=== PATIENT | male | born 1960 | race Caucasian/White ===

== ENCOUNTER 2025-05-04 08:24 | Inpatient (IN) | payer MEDICARE, MEDICAID, SELFPAY ==
[2025-05-04] VITALS (15 sets, daily range): BP systolic 127–162; BP diastolic 72–95; PULSE 102–123; RESP 13–100; TEMP 36.7–37.1; O2SAT 95–100; BMI 16.7
--- NOTE | 2025-05-04 08:31 | PC.NURSE ---
Pt. here from [facility] to room [facility], facility states pt. Hemoglobin was 6.7 and sent pt. for a blood transfusion, pt. states he has been coughing since he had his chest tubes last week. Pt. states he fell a couple days ago and hit his head, pt. states he denies loss of LOC he states he has a hard head. Pt. has a swollen left hand and left arm from the elbow down, pt. states he doesn't know why his arm and hand are swollen. Pt. states he doesn't walk because his legs are weak. Pt. states he just started PT at the rehab. No s/s of distress at this time.
--- NOTE | 2025-05-04 08:41 | XR_ITS ---
Examination: Duplex scan of the upper extremity, unilateral left Date and time of exam: May 04, 2025, 12:14 p.m. INDICATIONS: Left arm swelling and pain 2 days, patient is anticoagulated Technique: Duplex scan of the extremity veins using B-mode/grayscale imaging and Doppler spectral analysis and color flow Attention is directed to internal echogenicity, compression and augmentation involving these veins, color flow assessment, spectral analysis Findings: Major deep venous structures in the extremity demonstrate normal course and caliber. There is no evidence of deep vein thrombosis. Normal color flow and spectral analysis Impression: Negative for DVT.. Multiple lymph nodes adjacent to the clavicle, left axilla consider CT soft tissue neck post intravenous contrast follow-up, left axillary sonography follow-up
--- NOTE | 2025-05-04 08:45 | PC.NURSE ---
Dr. Hackett bedside and did a rectal exam on pt., pt. tolerated well.
--- NOTE | 2025-05-04 08:50 | EKG_ITS ---
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
[2025-05-04 08:51] LABS: Lactate (Lactic Acid) 1.4 mMol/L (0.4-2.0)
[2025-05-04 09:03] LABS: Basophils # (Auto) 0.0 Thou/mm3 (0.0-0.2); Basophils % (Auto) 0 % (0-2.5); Eosinophils # (Auto) 0.0 Thou/mm3 (0.0-0.5); Eosinophils % (Auto) 0 % (0-10); Hematocrit 20.9 % (41.0-53.0); Immature Granulocytes Auto 0.09 Thou/mm3 (0.00-0.00); Lymphocytes # (Auto) 0.7 Thou/mm3 (1.0-4.8); Lymphocytes % (Auto) 8 % (10-50); Mean Corpuscular HGB Conc 32.1 g/dl (31.0-37.0); Mean Corpuscular Hemoglobin 26.2 pg (25.0-35.0); Mean Corpuscular Volume 82 fL (80-100); Monocytes # (Auto) 0.6 Thou/mm3 (0.0-0.8); Monocytes % (Auto) 7 % (0-12); Neutrophils # (Auto) 7.3 Thou/mm3 (1.8-7.7); Neutrophils % (Auto) 84 % (37-80); Nucleated Red Blood Cell # 0.00 Thou/mm3 (0.00-0.00); Nucleated Red Blood Cell % 0 /100 WBC (0); Platelet Count 537 Thou/mm3 (140-440); RDW Standard Deviation 49.4 fL (35.1-43.9); Red Blood Count 2.56 Miln/mm3 (4.50-5.90); White Blood Count 8.7 Thou/mm3 (3.8-10.6)
[2025-05-04 09:15] LABS: Hemoglobin 6.7 g/dL (13.5-16.0)
[2025-05-04 09:23] LABS: Alanine Aminotransferase < 7 U/L (10-49); Albumin, Serum 2.7 gm/dL (3.4-4.8); Albumin/Globulin Ratio 1.3 (1.2-2.2); Alkaline Phosphatase 170 U/L (46-116); Anion Gap 10 (7-16); Aspartate Amino Transferase 17 U/L (0-34); BUN/Creatinine Ratio 12 Ratio (12-20); Bilirubin,Total 0.3 mg/dL (0.3-1.2); Blood Urea Nitrogen 11 mg/dL (9-23); Calcium 7.9 mg/dL (8.3-10.6); Calcium (Corrected) 8.9 mg/dL (8.5-10.1); Carbon Dioxide 22.6 mMol/L (20.0-31.0); Chloride 96 mMol/L (98-107); Creatinine (Component) 0.9 mg/dL (0.6-1.3); Estimated Creatinine Clearance 61.3 mL/min (>60); Globulin 2.1 gm/dL (2.3-3.5); Glucose 256 mg/dL (74-106); Osmolality,Calculated 267 (275-295); Potassium 4.2 mMol/L (3.4-5.1); Sodium 129 mMol/L (136-145); Total Protein 4.8 gm/dL (5.7-8.2); eGFR > 60 See Note
--- NOTE | 2025-05-04 09:32 | EDNOTE_ITS ---
<Statement entered by Gewn Busch MD - 05/05/25 18:00> I, Gwen Busch MD, have reviewed the history, exam, and assessment of the patient. I have evaluated the patient independently and agree with the plan of care documented by [ ]. All diagnostic studies were reviewed and discussed. I confirm the diagnosis as documented by the Resident. I was present during the Medical Decision Making for this patient. The patient's plan of care was created between myself and the Resident and consistent with our discussion of the patient's case. ED General RME/HPI General Chief complaint: Recheck/Abnormal Lab/Rx Stated complaint: ABNORMAL LABS Time Seen by Provider: 05/04/25 08:26 Arrival date/time: 05/04/25 08:24 Related Data Home Medications ?Medication ?Instructions ?Recorded ?Confirmed amitriptyline 50 mg tablet 50 mg PO HS #0 tabs 5 01/01/23 metformin 500 mg tablet 1,000 mg PO QDAY ##0 5 01/01/23 levetiracetam 500 mg tablet 500 mg PO QDAY #0 tabs 04/0301/01/23 (Keppra) clopidogrel 75 mg tablet 75 mg PO QDAY 08/03/2201/01 duloxetine 30 mg capsule,delayed 30 mg PO HS 08/03/22 01/01/23 release gabapentin 300 mg capsule 300 mg PO TID 08/03/2201/01 glipizide 5 mg tablet 5 mg PO BID 08/03/22 3 losartan 100 mg tablet 100 mg PO QDAY 08/03/2212/18 tizanidine 4 mg tablet 6 mg PO Q6HR PRN Muscle Spas m 08/03/22 01/02/23 Previous Rx's ?Medication ?Instructions ?Recorded hydrocodone 10 mg-acetaminophen 1 tab PO Q6HR PRN Pain (Scale 01/04/20 325 mg tablet Score 7-10) #0 tabs aspirin 81 mg tablet,delayed 81 mg PO QDAY #30 tabs release clopidogrel 75 mg tablet 75 mg PO QDAY #30 tabs 01/03 ferrous sulfate 325 mg (65 mg 325 mg PO Q OTHER DAY 1 month #15 12/16/25 iron) tablet tabs Allergies Allergy/AdvReac Type Severity Reaction Status Date / Time adhesive tape Allergy Severe Rash Verified 05/04/25 08:43 ED Exam Narrative Physical exam: Physical Exam: GENERAL: Awake, answering questions appropriately, appears stated age HEENT: NC/AT. Moist mucosa. PERRLA/EOMI. Conjunctival pallor noted bilaterally. CARDIO: Tachycardic, no obvious murmurs, no JVD. PULM: No coughing or visible SOB. Lungs CTA B/L. GI: Abdomen soft, NT/ND, +BS. Rectal: Skin tags but no external hemorrhoids noted on examination, digital rectal exam showed brown stool without any melenic stool SKIN/MSK/EXT: Left upper extremity deformed with +2 pitting edema right hand. Right great toe crusted wound without any exudation or erythema. No discoloration/rashes/edema/amputations. +Pedal pulses present B/L. NEURO: Oriented x3, Moves extremities x4, no focal neurologic deficits noted. Course Quality Measures none Orders Category Date Time Status Admit to Inpatient Status Routine Admission 05/04/25 16:18 Active Patient Condition Routine Admission 05/04/25 16:18 Ordered Activity as Tolerated Routine Care 05/04/25 16:18 Ordered Bedside Blood Glucose ACHS Care 05/04/25 16:25 Active COVID-19 Screening Questionnaire NOW Care 05/04/25 15:36 Active Decision to Admit X1 Care 05/04/25 15:36 Active EKG (ED ONLY) *Do not use* NOW Care 05/04/25 08:50 Completed Education, Diabetic NOW Care 05/04/25 16:30 Ordered Flu & Pneumonia Vaccine Screen ONCE Care 05/04/25 16:18 Active Miscellaneous Nursing Order NOW Care 05/04/25 16:18 Active Notify provider NEEDED Care 05/04/25 16:18 Active Obtain weight daily Care 05/04/25 16:18 Active Occult Blood,Stool (Nursing) NOW Care 05/04/25 15:02 Active Post Transfusion H&H X1 Care 05/04/25 08:41 Active Sequential Compression Device QSHIFT Care 05/04/25 16:18 Active Strict Intake and Output Routine Care 05/04/25 16:18 Ordered Transfuse,blood/blood products NOW Care 05/04/25 08:41 Active Consult to Gastroenterology Stat Cons 05/04/25 15:32 Ordered Referral Registered Dietitian Routine Cons 05/04/25 16:25 Active Diet Carbohydrate Consistent Diet 05/04/25 Dinner Active EKG (ED Only) Stat Exams 05/04/25 08:50 Draft US venous doppler UE LT Stat Exams 05/04/25 08:41 Completed A1C [Glycohemoglobin w (eAG)] AM DRAW Lab 05/05/25 05:00 Ordered CBC AM DRAW Lab 05/05/25 05:00 Ordered CBC AM DRAW Lab 05/06/25 05:00 Ordered CBC AM DRAW Lab 05/07/25 05:00 Ordered CBC AM DRAW Lab 05/08/25 05:00 Ordered CBC AM DRAW Lab 05/09/25 05:00 Ordered CBC Stat Lab 05/04/25 08:45 Completed CMP [Comprehensive Metabolic Panel] Stat Lab 05/04/25 08:45 Completed Comprehensive Metabolic Panel AM DRAW Lab 05/05/25 05:00 Ordered Comprehensive Metabolic Panel AM DRAW Lab 05/06/25 05:00 Ordered Comprehensive Metabolic Panel AM DRAW Lab 05/07/25 05:00 Ordered Comprehensive Metabolic Panel AM DRAW Lab 05/08/25 05:00 Ordered Comprehensive Metabolic Panel AM DRAW Lab 05/09/25 05:00 Ordered Ferritin Stat Lab 05/04/25 08:45 Completed Hgb and Hct Post-Transfusion Routine Lab 05/04/25 16:22 Ordered Iron Panel Stat Lab 05/04/25 08:45 Completed Lactic Acid [Lactate (Lactic Acid)] Stat Lab 05/04/25 08:45 Completed Lipid Panel AM DRAW Lab 05/05/25 05:00 Ordered Magnesium AM DRAW Lab 05/05/25 05:00 Ordered Magnesium AM DRAW Lab 05/06/25 05:00 Ordered Magnesium AM DRAW Lab 05/07/25 05:00 Ordered Magnesium AM DRAW Lab 05/08/25 05:00 Ordered Magnesium AM DRAW Lab 05/09/25 05:00 Ordered Path Review Blood Smear Stat Lab 05/04/25 08:45 Completed Phosphorous AM DRAW Lab 05/05/25 05:00 Ordered Phosphorous AM DRAW Lab 05/06/25 05:00 Ordered Phosphorous AM DRAW Lab 05/07/25 05:00 Ordered Phosphorous AM DRAW Lab 05/08/25 05:00 Ordered Phosphorous AM DRAW Lab 05/09/25 05:00 Ordered Prothrombin Time with INR AM DRAW Lab 05/05/25 05:00 Ordered Thyroid Stimulating Hormone AM DRAW Lab 05/05/25 05:00 Ordered Type and Screen Stat Lab 05/04/25 08:45 Results prbc [Red Blood Cells] Stat Lab 05/04/25 08:45 Results Acetaminophen Tab [Tylenol Tab] Med 05/04/25 16:18 Active 650 mg PO Q6H PRN Atorvastatin Calcium [Lipitor] Med 05/04/25 21:00 Active 80 mg PO HS Dextrose 50% Syr [D50w Syringe Abboject] Med 05/04/25 16:24 Active 25 ml IV Q15MIN PRN Dextrose 50% Syr [D50w Syringe Abboject] Med 05/04/25 16:24 Active 50 ml IV Q15MIN PRN Docusate Sod [Colace] Med 05/05/25 09:00 Active 100 mg PO QDAY Glucagon Inj Med 05/04/25 16:24 Active 1 mg IM Q15MIN PRN HYDROcodone*/APAP 5/325 [[place] 5/325] Med 05/04/25 16:18 Active 1 tab PO Q6HR PRN HYDROcodone/APAP 10/325 [[place] 10/325] Med 05/04/25 11:07 Discontinued 1 tab PO X1 ONE INSULIN LISPRO (AdmeLOG) [HumaLOG] Med 05/04/25 17:00 Active See Protocol SC AC Insulin Degludec Inj Med 05/04/25 21:00 Active 10 unit SC HS Losartan [Cozaar] Med 05/05/25 09:00 Active 100 mg PO QDAY Morphine* Inj Med 05/04/25 16:18 Active 1 mg IVP Q4HR PRN Ondansetron Inj [Zofran Inj] Med 05/04/25 16:18 Active 4 mg IVP Q6H PRN Pantoprazole Inj [Protonix Inj] Med 05/04/25 21:00 Active 40 mg IVP BID Sodium Chloride 0.9% 500 ml [Ns] 500 ml Med 05/04/25 09:49 Discontinued IV 999 mls/hr Tamsulosin HCl [Flomax] Med 05/05/25 09:00 Active 0.4 mg PO QDAY Code Status Routine Oth 05/04/25 16:18 Ordered Oxygen Delivery DAILY RT 05/04/25 16:18 Active Vital Signs Vital signs: Vital Signs Temperature 98.5 F 05/04/25 08:32 Pulse Rate 117 H 05/04/25 08:32 Respiratory Rate 17 05/04/25 08:32 Blood Pressure 127/72 05/04/25 08:32 Pulse Oximetry (%) 98 05/04/25 08:32 Oxygen Delivery Method Room Air 05/04/25 08:32 Discharge Plan Plan Patient Disposition: Xfer Skilled Nsg Fac (SNF) Patient condition on transfer: Stable Prescriptions/Referrals Prescriptions/Med Rec: New ferrous sulfate 325 mg (65 mg iron) tablet 325 mg PO Q OTHER DAY 30 Days Qty: 15 0RF No Action amitriptyline 50 mg Tablet 50 mg PO HS Qty: 0 metformin 500 mg Tablet 1,000 mg PO QDAY Qty: 0 levetiracetam [Keppra] 500 MG tablet 500 mg PO QDAY Qty: 0 hydrocodone-acetaminophen 10-325 mg Tablet 1 tab PO Q6HR PRN (Reason: Pain (Scale Score 7-10)) Qty: 0 0RF losartan 100 mg Tablet 100 mg PO QDAY clopidogrel 75 mg Tablet 75 mg PO QDAY glipizide 5 mg Tablet 5 mg PO BID duloxetine 30 mg Capsule,Delayed Release(Dr/Ec) 30 mg PO HS tizanidine 4 mg Tablet 6 mg PO Q6HR PRN (Reason: Muscle Spasm) gabapentin 300 mg Capsule 300 mg PO TID aspirin 81 mg Tablet,Delayed Release (Dr/Ec) 81 mg PO QDAY Qty: 30 3RF clopidogrel 75 mg tablet 75 mg PO QDAY Qty: 30 1RF Referrals: Kierra Alejandre FNP [Primary Care Provider] - In 1 week Problem List Clinical Impression: Symptomatic anemia Patient/Caregiver Discharge Instructions Education Materials: Iron Supplements Additional Instructions: Please take iron supplements every other day as prescribed for iron-deficiency anemia Follow-up with your PCP for further workup for anemia and 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 Print Language: Yakut Stand Alone Forms: Radha Award Info., Patient Portal Info Letter MDM Narrative MDM hospital course (for use when minimal MDM required): HPI: 65-year-old male with past medical history of CVA without any residual deficits, significant carotid atherosclerosis on DAPT, type 2 diabetes, hypertension presenting to the ER on 04/24 from [facility] for low hemoglobin noted on routine labs. Patient denies having any melena, hematochezia, hematemesis or hematuria. He does state that he had a fall several days ago where he fell and hit the back of his head. He was seen by his roommate at [facility] and was apparently taken to the [facility] where CT scan were done of his head and they were negative. He does have a left arm deformity which apparently x-rays were done and were negative for any fracture; or, he denies having ultrasound completed while he went to [facility]. He denies having any other concerning symptoms such as chest pain, shortness of breath, palpitations, fever/chills or dizziness. On examination, please refer to the physical exam above; patient presented to the ED normotensive but tachycardic with a heart rate of 117, respiratory rate of 17, afebrile satting 98 on room air. Pertinent lab findings included CBC with a hemoglobin of 6.7, MCV of 82 likely anemia secondary to anemia of chronic disease number iron deficiency anemia less likely to be anemia of acute blood loss, platelet count of 537, BUN of 11 with a BUN/creatinine ratio of 12 further establishes in the there is low likelihood of acute bleeding at this time. Iron studies are pending at this time. LFTs within normal limits other than alk phos elevated at 170. EKG shows sinus tachycardia without any concerning ST changes. #Symptomatic anemia #Anemia of chronic disease versus iron deficiency anemia FOBT positive Iron function shows severe iron deficiency Plan: Will consult GI and hospitalist team for admission #L arm deformity with edema As noted, patient was at [facility] in the past week or so and all imaging studies were negative at that point Pending documents from outside hospital, team notified to obtain Venous Doppler study of the left arm is largely unremarkable Plan: Follow-up outpatient with PCP Patient seen and assessed with attending Dr. JOY Hackett, DO PGY-2 Internal Medicine - [facility]ME. Medication Administration(s) Medication Administration History Acetaminophen (Acetaminophen 325 Mg Tablet) 650 mg PO Q6H PRN PRN Reason: Fever >100.4 or pain 1-3 Stop: 06/03/25 16:17 Hydrocodone Bitart/Acetaminophen (Hydrocodone/Apap 5/325 Tablet) 1 tab PO Q6HR PRN PRN Reason: PAIN SCALE 4-6 (Moderate Stop: 05/09/25 16:17 Atorvastatin Calcium (Atorvastatin Calcium 20 Mg Tablet) 80 mg PO HS [facility] Stop: 06/03/25 20:59 Dextrose (Dextrose 50%-Water Inj 50 Ml Syringe) 25 ml IV Q15MIN PRN PRN Reason: BG 50-70 responsive npo pt Stop: 06/03/25 16:23 Dextrose (Dextrose 50%-Water Inj 50 Ml Syringe) 50 ml IV Q15MIN PRN PRN Reason: BG <50 OR BG <70 & pt unresponsive Stop: 06/03/25 16:23 Docusate Sodium (Docusate Sod 100 Mg Capsule) 100 mg PO QDAY [facility]; Protocol Stop: 06/04/25 08:59 Glucagon (Glucagon Inj 1 Mg Vial) 1 mg IM Q15MIN PRN PRN Reason: BG <70, and no IV access Insulin Degludec (Insulin Degludec 5 Unit/0.05 Ml (Per 5 Units)) 10 unit SC [facility] Stop: 06/03/25 20:59 Insulin Human Lispro (Insulin Lispro (Admelog) 1 Unit/0.01 Ml Unit) 0 unit SC [facility]; Protocol Stop: 06/03/25 16:59 Losartan Potassium (Losartan Potassium 25 Mg Tablet) 100 mg PO QDAY [facility] Stop: 06/04/25 08:59 Morphine Sulfate (Morphine Sulf Inj 4 Mg/Ml Vial) 1 mg IVP Q4HR PRN PRN Reason: PAIN SCALE 7-10 (Severe Stop: 05/09/25 16:17 Ondansetron HCl (Ondansetron Inj 2 Mg/Ml Inj 2 Ml) 4 mg IVP Q6H PRN; Protocol PRN Reason: NAUSEA OR VOMITING Stop: 06/03/25 16:17 Pantoprazole Sodium (Pantoprazole Inj 40 Mg Vial) 40 mg IVP BID [facility] Stop: 06/03/25 20:59 Tamsulosin HCl (Tamsulosin Hcl 0.4 Mg Capsule) 0.4 mg PO QDAY [facility] Stop: 06/04/25 08:59 Discontinued Medications Hydrocodone Bitart/Acetaminophen (Hydrocodone/Apap 10/325 Tab) 1 tab PO X1 ONE Stop: 05/04/25 11:08 Last Admin: 05/04/25 11:15 Dose: 1 tab Documented By: ASHLEY Sodium Chloride (Ns) 500 mls @ 999 mls/hr IV .Q31M ONE Stop: 05/04/25 10:19 Last Infusion: 05/04/25 11:24 Dose: Infused Documented By: Admin: 05/04/25 10:53 Dose: 999 mls/hr Documented By: ED
[2025-05-04 10:09] LABS: Ferritin 173 ng/mL (10.5-307.3); Iron 14 mcg/dL (65-175); Percent Iron Saturation 8 % (20-55); Total Iron Binding Capacity 167 mcg/dL (250-425); Unsaturated Iron Binding 153 (225-295)
[2025-05-04] MEDS: SODIUM CHLORIDE 0.9% 500 ML 500 ML 999 ML IV (10:53)
--- NOTE | 2025-05-04 12:39 | PC.NURSE ---
request for mr faxed to [facility] @ [phone]
[2025-05-04 15:30] LABS: Path Review Blood Smear Sent to Pathologist
--- NOTE | 2025-05-04 16:10 | PC.NURSE ---
Dr. Jeffery bedside talking with pt.
--- NOTE | 2025-05-04 16:16 | PC.NURSE ---
Pt. tolerating blood well.
[2025-05-04] MEDS: MORPHINE SULF INJ 4 MG/ML VIAL 1 MG IVP ×2 (17:14→20:49)
--- NOTE | 2025-05-04 17:21 | ESHP_ITS ---
<Statement entered by Alcira Sommer MD - 05/13/25 09:13> I reviewed above note and agree with findings and plans. I have also personally examined the patient with medicine team and went over assessment and plan with medical team including advisory internship and resident physician. <Statement entered by Candida Manning MD - 05/04/25 17:32> In summary: 65-year-old male with Hx of HTN, HLD, seizure disorder on KEPPRA, CVA with residual left-sided deficits, multiple TIA, PDA with stents placed, admitted for suspected GI bleed with hemoglobin of 6.7. Currently 2 units PRBCs are being transfused. He is on PROTONIX. No indication for OCTREOTIDE, as there are no history of liver cirrhosis. He also denies alcohol drinking, last drink was [address] Coronado, has been consulted and his recommendations are pending. Will continue n.p.o. for now. I?ve reviewed the note and agree with this assessment and plan, with the exceptions outlined above. I personally went over the labs, imaging, home medications, and prior records, and examined the patient. The case was also reviewed with the attending physician. Please note: this document was transcribed using voice recognition technology; minor inaccuracies may be present. Candida Manning DO PGY II Documentation for date of: 05/04/25 HPI History of Present Illness Chief complaint: Abnormal labs, low hemoglobin. History of present illness: 65-year-old male with history of CVA without residual deficits, severe carotid atherosclerosis on DAPT, type 2 diabetes mellitus, hypertension, and hyperlipidemia, presenting from [facility] with severe symptomatic anemia (Hgb 6.7) found on routine labs, without overt signs of acute bleeding. He denies melena, hematochezia, hematemesis, hematuria, epistaxis, or easy bruising. He also denies chest pain, shortness of breath, palpitations, dizziness, syncope, fever, or chills. He reports a mechanical fall several days prior with head strike. He was evaluated at an outside hospital ([place]), where CT head imaging was reportedly negative. He also reports chronic left arm deformity and swelling; prior X-rays reportedly showed no fracture. A venous Doppler obtained during this admission was negative for DVT. He endorses chronic left leg pain related to prior fractures (leg fracture several years ago and hip fracture last year), without surgical intervention. Pain worsens with movement and positioning. He occasionally uses ibuprofen and takes [place] 10/325 for pain. The patient states he was previously on iron supplementation but it was discontinued. Iron studies during this admission demonstrate severe iron deficiency. FOBT was positive. He is currently receiving 1 unit of PRBCs. He has a history of ischemic CVA (2021?2022) without residual deficits and is on dual antiplatelet therapy (aspirin and Plavix) for significant carotid artery disease. He has type 2 diabetes managed with Rybelsus, glipizide, insulin degludec 10 units nightly, and sliding scale insulin. He reports smoking approximately 5 cigarettes per day and quit alcohol over 30 years ago. Review of Systems: Negative unless stated above Past Medical History * Cerebrovascular accident (2021?2022), no residual deficits * Severe carotid artery atherosclerosis on DAPT * Type 2 diabetes mellitus * Hypertension * Hyperlipidemia * Iron deficiency anemia * Chronic musculoskeletal pain (prior fractures) Past Surgical History * Denies abdominal or major surgeries * History of chest tubes for prior pneumothorax per patient but later states that the pneumothorax was read wrong. Medications (pending reconciliation) * Aspirin * Clopidogrel (Plavix) * Losartan 100 mg daily * Atorvastatin 80 mg nightly * Rybelsus * Glipizide * Insulin lantus 10 units nightly * [place] 10/325 PRN pain * Occasional ibuprofen (NSAID use) Allergies * No known drug allergies Social History * Resides at [facility] * Tobacco: 5 cigarettes/day * Alcohol: Quit >31 years ago * Illicit drugs: Denies Exam Vital Signs Temp Pulse Resp BP Pulse Ox O2 Del Method 98.3 F 109 H 17 154/91 H 100 Room Air 05/04/25 17:10 05/04/25 17:10 05/04/25 17:10 05/04/25 17:10 05/04/25 17:10 05/04/25 14:17 Narrative Exam General: Awake, alert, answering questions appropriately HEENT: NC/AT, conjunctival pallor, moist mucous membranes Cardiac: Tachycardic, regular rhythm, no murmurs, no JVD Pulmonary: Lungs clear to auscultation bilaterally Abdomen: Soft, non-tender, non-distended, +BS Rectal: Brown stool, no melena, no gross blood Extremities: * Left upper extremity deformity with +2 pitting edema, no erythema * Right great toe crusted wound without drainage or erythema * Pedal pulses intact bilaterally Neuro: AOx3, moves all extremities, no focal deficits Skin: No rashes or bruising Results: Labs 05/04/25 08:45 05/04/25 08:45 Labs: Short CBC 05/04/25 Range/Units 08:45 WBC 8.7 (3.8-10.6) Thou/mm3 Hgb 6.7 L* (13.5-16.0) g/dL Hct 20.9 L* (41.0-53.0) % Plt Count 537 H (140-440) Thou/mm3 BMP 05/04/25 08:45 Sodium 129 L Potassium 4.2 Chloride 96 L Carbon Dioxide 22.6 BUN 11 Creatinine 0.9 Glucose 256 H Calcium 7.9 L Liver Function 05/04/25 Range/Units 08:45 Total Bilirubin 0.3 (0.3-1.2) mg/dL AST 17 (0-34) U/L ALT < 7 L (10-49) U/L Alkaline Phosphatase 170 H (46-116) U/L Albumin 2.7 L (3.4-4.8) gm/dL Quality Measures Quality Measures none Advance care planning discussed with:: patient Medications Home Medications and Allergies Home Medications ?Medication ?Instructions ?Recorded ?Confirmed ?Type amitriptyline 50 mg tablet 50 mg PO HS #0 tabs 5 01/01/23 History metformin 500 mg tablet 1,000 mg PO QDAY ##0 5 01/01/23 History levetiracetam 500 mg tablet 500 mg PO QDAY #0 tabs 04/0301/01/23 History (Keppra) clopidogrel 75 mg tablet 75 mg PO QDAY 08/03/2201/01 History duloxetine 30 mg capsule,delayed 30 mg PO HS 08/03/22 01/01/23 History release gabapentin 300 mg capsule 300 mg PO TID 08/03/2201/01 History glipizide 5 mg tablet 5 mg PO BID 08/03/22 3 History losartan 100 mg tablet 100 mg PO QDAY 08/03/2212/18 History tizanidine 4 mg tablet 6 mg PO Q6HR PRN Muscle Spas m 08/03/22 01/02/23 History Allergies Allergy/AdvReac Type Severity Reaction Status Date / Time adhesive tape Allergy Severe Rash Verified 05/04/25 08:43 Visit Medications Acetaminophen (Acetaminophen 325 Mg Tablet) 650 mg PO Q6H PRN PRN Reason: Fever >100.4 or pain 1-3 Stop: 06/03/25 16:17 Hydrocodone Bitart/Acetaminophen (Hydrocodone/Apap 5/325 Tablet) 1 tab PO Q6HR PRN PRN Reason: PAIN SCALE 4-6 (Moderate Stop: 05/09/25 16:17 Atorvastatin Calcium (Atorvastatin Calcium 20 Mg Tablet) 80 mg PO HS [facility] Stop: 06/03/25 20:59 Dextrose (Dextrose 50%-Water Inj 50 Ml Syringe) 25 ml IV Q15MIN PRN PRN Reason: BG 50-70 responsive npo pt Stop: 06/03/25 16:23 Dextrose (Dextrose 50%-Water Inj 50 Ml Syringe) 50 ml IV Q15MIN PRN PRN Reason: BG <50 OR BG <70 & pt unresponsive Stop: 06/03/25 16:23 Docusate Sodium (Docusate Sod 100 Mg Capsule) 100 mg PO QDAY [facility]; Protocol Stop: 06/04/25 08:59 Glucagon (Glucagon Inj 1 Mg Vial) 1 mg IM Q15MIN PRN PRN Reason: BG <70, and no IV access Insulin Degludec (Insulin Degludec 5 Unit/0.05 Ml (Per 5 Units)) 10 unit SC [facility] Stop: 06/03/25 20:59 Insulin Human Lispro (Insulin Lispro (Admelog) 1 Unit/0.01 Ml Unit) 0 unit SC [facility]; Protocol Stop: 06/03/25 16:59 Losartan Potassium (Losartan Potassium 25 Mg Tablet) 100 mg PO QDAY [facility] Stop: 06/04/25 08:59 Morphine Sulfate (Morphine Sulf Inj 4 Mg/Ml Vial) 1 mg IVP Q4HR PRN PRN Reason: PAIN SCALE 7-10 (Severe Stop: 05/09/25 16:17 Last Admin: 05/04/25 17:14 Dose: 1 mg Ondansetron HCl (Ondansetron Inj 2 Mg/Ml Inj 2 Ml) 4 mg IVP Q6H PRN; Protocol PRN Reason: NAUSEA OR VOMITING Stop: 06/03/25 16:17 Pantoprazole Sodium (Pantoprazole Inj 40 Mg Vial) 40 mg IVP BID TOBY Stop: 06/03/25 20:59 Tamsulosin HCl (Tamsulosin Hcl 0.4 Mg Capsule) 0.4 mg PO QDAY [facility] Stop: 06/04/25 08:59 Discontinued Medications Hydrocodone Bitart/Acetaminophen (Hydrocodone/Apap 10/325 Tab) 1 tab PO X1 ONE Stop: 05/04/25 11:08 Last Admin: 05/04/25 11:15 Dose: 1 tab Sodium Chloride (Ns) 500 mls @ 999 mls/hr IV .Q31M ONE Stop: 05/04/25 10:19 Last Infusion: 05/04/25 11:24 Dose: Infused Assessment & Plan Plan 65-year-old male with history of CVA without residual deficits, severe carotid atherosclerosis on DAPT, type 2 diabetes mellitus, hypertension, and hyperlipidemia, presenting from [facility] with severe symptomatic anemia (Hgb 6.7) found on routine labs, without overt signs of acute bleeding. # Symptomatic anemia # Iron deficiency anemia Hgb 6.7 with tachycardia, conjunctival pallor, and positive FOBT. Iron 14, saturation 8%, albumin low, thrombocytosis consistent with iron deficiency. Likely chronic blood loss vs malabsorption. No evidence of acute hemorrhage. Plan: * Transfuse 1 unit PRBC (currently infusing) * Trend H/H post-transfusion * Hold NSAIDs * GI consult with Dr Coronado, pending recs * Start Iron supplementation after GI findings. * Recheck iron studies post-supplementation outpatient. * Monitor vitals and symptoms closely # Left upper extremity swelling/deformity The patient has chronic left arm deformity (prior injury) with pitting edema and recent fall-related pain. The ultrasound of the left arm was negative for DVT, but there are multiple lymph nodes near the clavicle. Plan: * Pain control * Outpatient follow-up CT soft tissue neck/chest with contrast to evaluate lymphadenopathy # Type 2 diabetes mellitus The patient has poorly controlled diabetes (glucose 256 on admission). He is on insulin Lantus 10 units nightly. He also takes Rybelsus and glipizide. Plan: * Continue home insulin degludec 10 units nightly * Sliding scale insulin ACHS * Continue home meds once med recs are completed # Hypertension # Carotid artery disease # History of CVA # Hyperlipidemia The patient has hypertension (currently on losartan 100 mg and amlodipine) Also severe carotid artery disease, for which he is on dual antiplatelet therapy (aspirin + Plavix). He has a history of ischemic stroke (2021). Blood pressure is currently elevated (154/91) but stable with medication. Plan: * Hold aspirin and Plavix, will reassess with GI if bleeding source identified. * Continue losartan 100 mg daily * Continue atorvastatin 80 mg nightly * Follow up Lipid panel in AM # Chronic pain (left leg/hip) The patient has chronic left leg pain (prior fractures), worsened by movement. No surgical intervention for prior fractures. Significant discomfort limits mobility Plan: * Resume home [place] PRN * Avoid NSAIDs * Physical therapy evaluation Health Maintenance Disposition: Admitted to medicine for further management. Feeding: Carb consistent Thromboprophylaxis: SCD GI Prophylaxis: PPI BID Code Status: DNR/DNI confirmed with patient and POLST. ----- Plan discussed with attending physician Dr. Sommer and senior resident Dr. Nigel Jeffery MD PGY-1 Internal Medicine
[2025-05-04] MEDS: INSULIN LISPRO (AdmeLOG) 1 UNIT/0.01 ML UNIT SC (18:48)
[2025-05-04] MEDS: ATORVASTATIN CALCIUM 20 MG TABLET 80 MG PO (20:24)
[2025-05-04] MEDS: INSULIN DEGLUDEC 5 UNIT/0.05 ML (PER 5 UNITS) 10 UNIT SC (20:49)
--- NOTE | 2025-05-04 21:40 | PD.IMCONS ---
HPI Data of Consult Requesting Physician: Alcira Sommer MD Primary Care Provider: LORRIE De Souza Consult Narrative Reason for consult: Acute anemia blood loss requiring transfusion H/H 6.7/20.9 History of present illness: 65 years old male who presents the hospital with a hemoglobin of 6.7 hematocrit 20.9 with a platelet count of 5 and 37,000 On 01/04/2025 patient hemoglobin hematocrit 10.6 and 30.6 with a platelet count of 281,000 Pro time INR is 1.0 No history of any alcohol consumption Except 30 years ago that doing small quantities Patient has a history of essential hypertension hyperlipidemia seizure disorder on Keppra CVA with residual left motor deficit and multiple TIAs and PDA requiring stenting cc:: cc: Alcira Sommer MD Review of Systems Review of Systems Systems Reviewed: All systems reviewed, normal except as documented Past Medical History Surgical History OTHER SURGICAL HX: As under HPI Meds Home Medications and Allergies Home Medications ?Medication ?Instructions ?Recorded ?Confirmed ?Type amitriptyline 50 mg tablet 50 mg PO HS #0 tabs 07/16/14 01/01/23 History metformin 500 mg tablet 1,000 mg PO QDAY ##0 07/16/14 01/01/23 History levetiracetam 500 mg tablet 500 mg PO QDAY #0 tabs 12/28/14 01/01/23 History (Keppra) clopidogrel 75 mg tablet 75 mg PO QDAY 08/03/22 01/01/23 History duloxetine 30 mg capsule,delayed 30 mg PO HS 08/03/22 01/01/23 History release gabapentin 300 mg capsule 300 mg PO TID 08/03/22 01/01/23 History glipizide 5 mg tablet 5 mg PO BID 08/03/22 01/01/23 History losartan 100 mg tablet 100 mg PO QDAY 08/03/22 01/01/23 History tizanidine 4 mg tablet 6 mg PO Q6HR PRN Muscle Spasm 08/03/22 01/02/23 History Allergies Allergy/AdvReac Type Severity Reaction Status Date / Time adhesive tape Allergy Severe Rash Verified 05/04/25 08:43 Exam Vital Signs Temp Pulse Resp BP Pulse Ox O2 Del Method 98.7 F 112 H 13 162/86 H 96 Room Air 05/04/25 20:45 05/04/25 20:45 05/04/25 20:45 05/04/25 20:45 05/04/25 20:45 05/04/25 20:00 Constitutional Comments: Alert oriented Routine Respiratory Exam Comments: Scattered rhonchi Routine Abdominal Exam Comments: Soft nontender Results Labs 05/04/25 08:45 05/04/25 08:45 Labs: Short CBC 05/04/25 Range/Units 08:45 WBC 8.7 (3.8-10.6) Thou/mm3 Hgb 6.7 L* (13.5-16.0) g/dL Hct 20.9 L* (41.0-53.0) % Plt Count 537 H (140-440) Thou/mm3 BMP 05/04/25 08:45 Sodium 129 L Potassium 4.2 Chloride 96 L Carbon Dioxide 22.6 BUN 11 Creatinine 0.9 Glucose 256 H Calcium 7.9 L Liver Function 05/04/25 Range/Units 08:45 Total Bilirubin 0.3 (0.3-1.2) mg/dL AST 17 (0-34) U/L ALT < 7 L (10-49) U/L Alkaline Phosphatase 170 H (46-116) U/L Albumin 2.7 L (3.4-4.8) gm/dL Assessment and Plan Additional Assessment & Plan Additional Plan: # Anemia blood loss requiring transfusion Recommend iron panel B12 folate level along with reticulocyte count Stool occult blood Obtain consent for fiberoptic esophagogastroduodenoscopy biopsy therapeutic intervention under intravenous moderate sedation If EGD is negative we will consider doing a fiberoptic colonoscopy prior to discharge Patient does take Plavix Other medical problems include Hyperlipidemia Seizure disorder on Keppra CVA with residual left sided deficit Multiple TIAs Peripheral arterial disease requiring stenting Thank you very much for the opportunity to participate in the care of this patient
[2025-05-04] MEDS: HYDROcodone/APAP 5/325 TABLET 1 TAB PO (21:53)
[2025-05-04 22:13] LABS: Hematocrit 28.9 % (41.0-53.0); Hemoglobin 9.5 g/dL (13.5-16.0)
[2025-05-05] VITALS (16 sets, daily range): BP systolic 99–152; BP diastolic 59–99; PULSE 85–116; RESP 13–95; TEMP 36.6–37.2; O2SAT 95–100; BMI 17.9; BMI 18.0; BMI 13.0
--- NOTE | 2025-05-05 | XR_ITS ---
Examinations: MRI Brain without intravenous contrast. MRA brain without intravenous contrast. MRA carotids without intravenous contrast 3-D vascular reconstructions Date and time of exam: May 05, 2025, 1423 hours, comparison September 09, 2022 INDICATIONS: Seizure disorder, history of stroke and multiple transient ischemic attacks, anemia, blurred vision in the left eye beginning yesterday Technique: Multiple axial and sagittal images of the brain have been obtained MRA brain carotid images without contrast obtained, including 3-D postprocessing, vascular maximum intensity projection images Findings: Sellaturcica is not enlarged. The optic chiasm and infundibular stalk are not remarkable. Prepontine and interpeduncular cisterns are not enlarged. No localized enlargement of the medulla or raciel. Fourth ventricle and cerebellar tonsils normal in position. Subacute hemorrhage is not seen. Fourth ventricle is midline. Mass in the cerebellopontine angle region is not evident. 7th and 8th nerve complexes exhibits symmetry. Globes are symmetrical with no retro-orbital mass. Increased white matter signal evident, including large old right frontal infarct smaller left frontal infarct right occipital lobe infarct Diffusion-weighted images demonstrate no focus of restricted diffusion Mass-effect upon the ventricular system is not identified. MRA carotid images degraded by patient motion MRA brain images no filling of right internal carotid artery including juxtasellar supraclinoid portion, no filling M1 segment right middle cerebral artery markedly decreased filling right middle cerebral artery trifurcation vessels Impression: Negative for acute hemorrhage mass effect or midline shift No acute infarct Multiple old infarcts Lack of filling right internal carotid artery petrous juxtasellar, lack of filling M1 segment right middle cerebral artery Decreased filling right middle cerebral artery trifurcation vessels
[2025-05-05] MEDS: MORPHINE SULF INJ 4 MG/ML VIAL 1 MG IVP ×4 (00:50→16:11)
[2025-05-05] MEDS: DULoxetine HCL 30 MG CAPSULE PO ×2 (01:08→21:13)
--- NOTE | 2025-05-05 02:20 | XR_ITS ---
Examination: CT brain head without contrast. 2-D sagittal coronal reconstructions Date and time of exam: May 05, 2025, 0227 hours, comparison December 31, 2022 INDICATIONS: Stroke alert onset focal neurologic deficit including generalized weakness beginning 214 hours CTDI: vol (mGy): 49.7 DLP: (mGycm): 1038 Technique: Multiple CT axial sections of the brain have been obtained, 5 mm slice thickness. Contrast has not been administered. 2-D sagittal, coronal reconstructions have been obtained Low dose protocols were performed. One or more of the following dose reduction techniques were used; automated exposure control, adjustment of the mA and/or KV according to patient size, use of iterative reconstruction technique. Findings: Mild ventricular enlargement. Encephalomalacia right frontal lobe, encephalomalacia right occipital lobe Intra-axial or extra-axial hemorrhage density is not seen. No mass effect or midline shift Basal cisterns are not remarkable. Fourth ventricle is midline. Cranial vault intact. Impression: Negative for acute hemorrhage, mass effect or midline shift Acute left maxillary sinusitis Postsurgical defect left mastoid air cells with fluid in the surgical defect
--- NOTE | 2025-05-05 02:20 | EKG_ITS ---
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
--- NOTE | 2025-05-05 02:32 | PD.RESEVENT ---
Documentation for date of: 05/05/25 Event Note Event Note: Rapid Response Room:?275 Time:?0215 Reason for Call:?New onset left sided weakness and numbness Events:? Nursing staff noticed new onset left-sided weakness and numbness, and so rapid response was called at 0215. Rapid response was then upgraded to stroke alert given presentation. Hospitalist team arrived in patient room and found patient unable to raise his left arm compared to his right. Patient was taken to CT for stat CT head. New orders:?Inpatient stroke protocol order set CBC, CMP, troponin, EKG, lactic acid, magnesium, CT head without contrast, CTA head/neck, teleneurology consult ordered, NIH stroke scale x 1. Later ordered MRI head without contrast, TTE with bubble study, and neurochecks every 4 hours per recommendations from teleneurology. Patient was discussed with the attending, Dr. Carie Murray, PGY-1
[2025-05-05 02:35] LABS: Lactate (Lactic Acid) 1.3 mMol/L (0.4-2.0)
--- NOTE | 2025-05-05 02:38 | XR_ITS ---
Examination: CTA carotids with intravenous contrast CTA brain, head with intravenous contrast. 2-D sagittal, coronal reconstructions. 3-D reconstructions. Exam date and time: May 05, 2025, 0245 hours INDICATIONS: Stroke alert, onset focal neurologic deficit today CTDI: vol (mGy) 10.9 DLP: (mGycm) 437 Technique: Multiple CTA axial brain, head carotid images post intravenous contrast injection 75 cc, [id number]. 2-D sagittal, coronal reconstructions. 3-D reconstructions, 3-D post processing including vascular maximum intensity projection images. Low dose protocols were performed. One or more of the following dose reduction techniques were used; automated exposure control, adjustment of the mA and/or KV according to patient size, use of iterative reconstruction technique. Findings: There is occlusion of the right internal carotid artery including no filling of the petrous or juxtasellar or supraclinoid portion of the internal carotid artery The left internal carotid artery in the neck is intact Dominant right vertebral artery in the neck with no critical stenoses Opacity in the left lung partially visualized The intracranial vertebral arteries and are intact as well as basilar artery and posterior cerebral artery branches The M1 segments of the middle cerebral arteries middle cerebral artery trifurcation vessels fill bilaterally as well as anterior cerebral arteries IMPRESSION: 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
[2025-05-05 02:39] LABS: Basophils # (Auto) 0.0 Thou/mm3 (0.0-0.2); Basophils % (Auto) 0 % (0-2.5); Eosinophils # (Auto) 0.1 Thou/mm3 (0.0-0.5); Eosinophils % (Auto) 1 % (0-10); Hematocrit 25.7 % (41.0-53.0); Immature Granulocytes Auto 0.10 Thou/mm3 (0.00-0.00); Lymphocytes # (Auto) 0.9 Thou/mm3 (1.0-4.8); Lymphocytes % (Auto) 10 % (10-50); Mean Corpuscular HGB Conc 33.5 g/dl (31.0-37.0); Mean Corpuscular Hemoglobin 27.2 pg (25.0-35.0); Mean Corpuscular Volume 81 fL (80-100); Monocytes # (Auto) 0.7 Thou/mm3 (0.0-0.8); Monocytes % (Auto) 8 % (0-12); Neutrophils # (Auto) 7.2 Thou/mm3 (1.8-7.7); Neutrophils % (Auto) 80 % (37-80); Nucleated Red Blood Cell # 0.00 Thou/mm3 (0.00-0.00); Nucleated Red Blood Cell % 0 /100 WBC (0); Platelet Count 440 Thou/mm3 (140-440); RDW Standard Deviation 44.7 fL (35.1-43.9); Red Blood Count 3.16 Miln/mm3 (4.50-5.90); White Blood Count 9.0 Thou/mm3 (3.8-10.6)
[2025-05-05 02:40] LABS: Hemoglobin 8.6 g/dL (13.5-16.0)
[2025-05-05 02:57] LABS: Partial Thromboplastin Time 31.9 Seconds (22.0-36.0)
[2025-05-05 03:12] LABS: Alanine Aminotransferase < 7 U/L (10-49); Albumin, Serum 2.5 gm/dL (3.4-4.8); Albumin/Globulin Ratio 1.5 (1.2-2.2); Alkaline Phosphatase 156 U/L (46-116); Anion Gap 9 (7-16); Aspartate Amino Transferase 18 U/L (0-34); BUN/Creatinine Ratio 17 Ratio (12-20); Bilirubin,Total 0.6 mg/dL (0.3-1.2); Blood Urea Nitrogen 12 mg/dL (9-23); Calcium 7.4 mg/dL (8.3-10.6); Calcium (Corrected) 8.6 mg/dL (8.5-10.1); Carbon Dioxide 23.0 mMol/L (20.0-31.0); Chloride 99 mMol/L (98-107); Creatinine (Component) 0.7 mg/dL (0.6-1.3); Estimated Creatinine Clearance 78.8 mL/min (>60); Globulin 1.7 gm/dL (2.3-3.5); Glucose 147 mg/dL (74-106); Magnesium 1.5 mg/dL (1.6-2.6); Osmolality,Calculated 265 (275-295); Potassium 3.6 mMol/L (3.4-5.1); Sodium 131 mMol/L (136-145); Total Protein 4.2 gm/dL (5.7-8.2); Troponin I < 0.020 ng/mL (0.0-0.045); eGFR > 60 See Note
[2025-05-05] MEDS: HYDROcodone/APAP 5/325 TABLET 1 TAB PO ×2 (03:32→13:13)
--- NOTE | 2025-05-05 03:52 | ESCONSULT_ITS ---
Tele Neuro Consultation Consultation Date 05/05/25 Most Recent Vital Signs Last Vital Signs Temp 98.7 F 05/05/25 02:21 Pulse 107 H 05/05/25 02:21 Resp 18 05/05/25 02:21 BP 99/72 05/05/25 02:21 Pulse Ox 96 05/05/25 02:21 O2 Del Method Room Air 05/05/25 00:00 Laboratory-Coagulation Panel APTT 31.9 Seconds (22.0-36.0) 05/05/25 02:29 Consultation Narrative [facility] TeleNeurology Consult Services Patient Name:???Yang Martines Date of :???1960 Identification Number:??? Date of Service:???05/05/2025 02:22:05 Diagnosis: ?I63.89 - Cerebrovascular accident (CVA) due to other mechanism ([facility] [place]) Impression: ?Patient is evaluated by neurology for left-sided numbness and weakness. On my exam, patient had clear speech without aphasia or dysarthria, symmetric smile, normal visual acuity, full strength in his right hemibody but had drift in his left upper and lower extremities and also endorsed decreased sensation to light touch. NIHSS of 4. His CT head demonstrated no acute abnormalities and CT angiogram demonstrated chronic occlusion of the right ICA. Patient was not a candidate for IV thrombolytics due to unclear last known well as well as recent GI bleed. Patient reportedly has left-sided weakness from prior CVA but states that this is worse than baseline. Symptoms could be recrudescence of prior stroke symptoms versus new CVA. Recommend MRI brain for further workup. Recommendations: ? Neuro Checks (Q4) ?Hold AP/AC for now pending medical clearance given GI bleed ?Obtain MRI brain without contrast ?Check lipid profile, A1c ?Obtain TTE, monitor on telemetry Advanced Imaging: CTA Head and Neck Completed. LVO:Yes (chronic R ICA occlusion) Discussed with GEOVANNI: No Metrics: Last Known Well: Unknown Activation Time: 05/05/2025 02:22:05 Initial Response Time: 05/05/2025 02:23:38Symptoms: Left sided numbness and weakness. Initial patient interaction: 05/05/2025 02:27:00 NIHSS Assessment Completed: 05/05/2025 02:33:00Patient is not a candidate for Thrombolytic. Thrombolytic Medical Decision: 05/05/2025 02:33:30Patient was not deemed candidate for Thrombolytic because of following reasons: Recent gastrointestinal or urinary tract hemorrhage (within previous 21 days) . CT Head: I personally reviewed all the CT images that were available to me and it showed: No acute abnormalities. Encephalomalacia in the right MCA territory. ED Physician not notified of diagnostic impression and management plan because Unable to reach overnight provider by phone History of Present Illness:Patient is a 65 year old Male. Inpatient stroke alert was called for symptoms of Left sided numbness and weakness. Patient is evaluated by neurology for left-sided numbness and weakness. Patient is currently admitted to the hospital for workup of GI bleed, and he states that when he fell asleep last night he was at his baseline, but he does not remember what time he went to sleep. When he woke up this morning around 2:15 AM he reported to nursing staff that he was having new numbness and weakness on his left side. Per chart review, patient has a history of prior CVA with residual left-sided weakness, but he states that the symptoms now are new and worse than baseline. He was previously on ASA and Plavix but they have been held since admission. ? Past Medical History: ?Hypertension ?Diabetes Mellitus ?Hyperlipidemia ?Stroke ?Seizures Medications: No Anticoagulant use? Antiplatelet use:?Yes?ASA, Plavix Reviewed EMR for current medications Other Medications Pertinent To Assessment Include: Keppra Allergies:? Reviewed Social History: Smoking: Yes Alcohol Use: Former Family History: There is no family history of premature cerebrovascular disease pertinent to this consultation ROS : 14 Points Review of Systems was performed and was negative except mentioned in HPI. Past Surgical History: There Is No Surgical History Contributory To Today?s Visit ? Examination: BP(101/70),?Pulse(101), 1A: Level of Consciousness - Alert; keenly responsive?+ 0 1B: Ask Month and Age - Both Questions Right?+ 0 1C: Blink Eyes & Squeeze Hands - Performs Both Tasks?+ 0 2: Test Horizontal Extraocular Movements - Normal?+ 0 3: Test Visual Bhandari - No Visual Loss?+ 0 4: Test Facial Palsy (Use Grimace if Obtunded) - Normal symmetry?+ 0 5A: Test Left Arm Motor Drift - Drift, but doesn't hit bed?+ 1 5B: Test Right Arm Motor Drift - No Drift for 10 Seconds?+ 0 6A: Test Left Leg Motor Drift - Drift, hits bed?+ 2 6B: Test Right Leg Motor Drift - No Drift for 5 Seconds?+ 0 7: Test Limb Ataxia (FNF/Heel-Armijo) - No Ataxia?+ 0 8: Test Sensation - Mild-Moderate Loss: Less Sharp/More Dull?+ 1 9: Test Language/Aphasia - Normal; No aphasia?+ 0 10: Test Dysarthria - Normal?+ 0 11: Test Extinction/Inattention - No abnormality?+ 0 NIHSS Score:?4 Pre-Morbid Modified [place] Scale: 0 Points = No symptoms at all This consult was conducted in real time using interactive audio and video technology. Patient was informed of the technology being used for this visit and agreed to proceed. Patient located in hospital and provider located at home/office setting. Patient is being evaluated for possible acute neurologic impairment and high probability of imminent or life-threatening deterioration. I spent total of 55 minutes providing care to this patient, including time for face to face visit via telemedicine, review of medical records, imaging studies and discussion of findings with providers, the patient and/or family. Dr Kian Rodriguez [facility] For Inpatient follow-up with [facility] physician please call [facility] at . As we are not an outpatient service for any post hospital discharge needs please contact the hospital for assistance. If you have any questions for the [facility] physicians or need to reconsult for clinical or diagnostic changes please contact us via [facility] at . Non-radiologist review of imaging performed to assist with emergent clinical decision-making. Remote physician workstations do not possess the same resolution, calibration, or diagnostic capabilities as hospital-based radiology reading stations, and formal radiologist read is necessary. Signature :?Kian Rodriguez ?
--- NOTE | 2025-05-05 04:11 | ECHO_ITS ---
Patient Info Name: Yang Martines Age: 65 years : 1960 Gender: Male Ht: 180 cm Wt: 54 kg BSA: 1.63 m2 BP: 108 / 59 mmHg HR: 90 bpm Exam Date: 05/05/2025 4:15 PM Admit Date: 05/04/2025 Site: [facility] Patient Status: I Exam Type: CA echo doppler complete [employer] Instructor: Isa Schmitt Ordering Physician: Michael Murray Study Info Indications CVA workup, with bubble study - Contrast/Agitated Saline Contrast/Ag. Saline: Agitated Saline Amount: --- ml Primary Location: S2NX Left Ventricular Outflow Tract Name Value Normal LVOT 2D LVOT Diameter 2.0 cm LVOT Doppler LVOT Peak Velocity 105 cm/s LVOT Mean Gradient 2 mmHg LVOT VTI 17 cm LVOT VTI/AV VTI Ratio 0.6 LVOT Stroke Volume 53 ml Pulmonic Valve Name Value Normal PV Doppler PV Peak Velocity 117 cm/s Mitral Valve Name Value Normal MV Doppler MV Mean Gradient 2 mmHg MV Decel Barrow 796 cm/s2 MV PHT 28 ms MV Area (PHT) 8.0 cm2 4.0-5.0 MV Area (Cont Eq VTI) 1.7 cm2 MV Diastolic Function MV E Peak Velocity 76 cm/s MV A Peak Velocity 105 cm/s MV E/A 0.7 MV Annular TDI MV Septal e' Velocity 8.2 cm/s MV E/e' (Septal) 9.3 MV Lateral e' Velocity 8.7 cm/s MV E/e' (Lateral) 8.7 MV e' Average 8.43 cm/s MV E/e' (Average) 9.0 Tricuspid Valve Name Value Normal TV Regurgitation Doppler TR Peak Velocity 187 cm/s Estimated PAP/RSVP RA Pressure 3 mmHg <=5 PA Systolic Pressure 17 mmHg <36 RV Systolic Pressure 17 mmHg <36 Aortic Valve Name Value Normal AV 2D/MM AV Cusp Sep (MM) 1.5 cm AV Doppler AV Peak Velocity 143 cm/s AV Mean Gradient 5 mmHg AV VTI 30 cm AV Area (Cont Eq VTI) 1.8 cm2 >=3.0 AV Area (Cont Eq Joby) 2.3 cm2 AV DI (Joby) 0.73 AV Regurgitation 2D LVOT Area 3.1 cm2 Ventricles Name Value Normal LV Dimensions 2D/MM LVOT Diameter 2.0 cm Atria Name Value Normal LA Dimensions LA Volume (4C A-L) 44 ml Left Ventricle Left ventricular chamber dimension is normal. Left ventricular systolic function is mildly reduced with visually estimated ejection fraction of 40-45%. There is normal geometry noted in the left ventricle. The apex is hypokinetic. The basal inferior wall, mid inferior wall, basal anterior wall, mid anterior wall, basal inferoseptal, mid inferoseptal, basal anterolateral wall, mid anterolateral wall, basal anteroseptal, mid anteroseptal, basal inferolateral wall, and mid inferolateral wall are not scored. Left ventricular segmental wall motion is abnormal. There is grade I diastolic dysfunction in the left ventricle. Right Ventricle Right ventricular chamber dimension is normal. Right ventricular systolic function is normal. Left Atrium Left atrial chamber dimension is normal. Right Atrium Right atrial chamber dimension is normal. Aortic Valve The aortic valve is trileaflet. There is mild aortic valve sclerosis. There is mild aortic valve stenosis with a peak velocity of 143 cm/s, mean gradient of 5 mmHg, and aortic valve area of 1.8 cm2. There is no aortic valve regurgitation. Pulmonic Valve The pulmonic valve is normal. There is no pulmonic valve stenosis. There is no pulmonic regurgitation. Mitral Valve The mitral valve has thickened leaflets. There is no mitral valve stenosis. There is trace mitral valve regurgitation. Tricuspid Valve The tricuspid valve leaflets are normal. There is no tricuspid valve stenosis. There is trace tricuspid valve regurgitation. No pulmonary hypertension, estimated pulmonary arterial systolic pressure is 17 mmHg and systemic blood pressure of 108 mmHg in systole. Pericardium/Pleural The pericardium appears normal. There is trivial pericardial effusion with no evidence of tamponade. No pleural effusion visualized. Inferior Vena Cava Normal inferior vena cava with >50% collapse upon inspiration consistent with normal right atrial pressure, 3 mmHg. Aorta The aortic measurements are indexed to age and body surface area. The aortic root at the sinus of Valsalva is not well visualized. The prox ascending aorta is not well visualized. Summary 1. Bubble study negative for PFO or ASD but suboptimal images. Consider TAYLER if high index of clinical suspicion for embolic stroke. 2. Left ventricle size is normal and systolic function is mildly reduced. Estimated ejection fraction is 40-45%. There is grade I diastolic dysfunction. 3. Right ventricle chamber size is normal and systolic function is normal. Estimated RVSP is 17 mmHg. 4. There is mild aortic valve sclerosis with mild stenosis and no regurgitation. 5. There is trace mitral and tricuspid valve regurgitation. 6. There is trivial pericardial effusion with no evidence of tamponade. Report Signatures Finalized by Ben Boston on 05/07/2025 07:57 AM
[2025-05-05 04:15] LABS: INR 1.0 (0.9-1.3); Prothrombin Time 11.0 Seconds (9.0-12.2)
[2025-05-05] MEDS: GABAPENTIN 300 MG CAPSULE PO ×3 (05:04→21:12)
[2025-05-05 05:36] LABS: Basophils # (Auto) 0.0 Thou/mm3 (0.0-0.2); Basophils % (Auto) 0 % (0-2.5); Eosinophils # (Auto) 0.1 Thou/mm3 (0.0-0.5); Eosinophils % (Auto) 1 % (0-10); Hematocrit 25.9 % (41.0-53.0); Immature Granulocytes Auto 0.12 Thou/mm3 (0.00-0.00); Lymphocytes # (Auto) 0.6 Thou/mm3 (1.0-4.8); Lymphocytes % (Auto) 7 % (10-50); Mean Corpuscular HGB Conc 33.6 g/dl (31.0-37.0); Mean Corpuscular Hemoglobin 27.5 pg (25.0-35.0); Mean Corpuscular Volume 82 fL (80-100); Monocytes # (Auto) 0.7 Thou/mm3 (0.0-0.8); Monocytes % (Auto) 8 % (0-12); Neutrophils # (Auto) 7.2 Thou/mm3 (1.8-7.7); Neutrophils % (Auto) 82 % (37-80); Nucleated Red Blood Cell # 0.00 Thou/mm3 (0.00-0.00); Nucleated Red Blood Cell % 0 /100 WBC (0); Platelet Count 476 Thou/mm3 (140-440); RDW Standard Deviation 45.8 fL (35.1-43.9); Red Blood Count 3.16 Miln/mm3 (4.50-5.90); White Blood Count 8.7 Thou/mm3 (3.8-10.6)
[2025-05-05 05:53] LABS: Hemoglobin 8.7 g/dL (13.5-16.0)
[2025-05-05 06:01] LABS: Glucose Estimated Average 166 mg/dL (80-131); Hemoglobin A1C 7.4 % Hgb (4.8-6.0)
[2025-05-05 06:19] LABS: Alanine Aminotransferase < 7 U/L (10-49); Albumin, Serum 2.5 gm/dL (3.4-4.8); Albumin/Globulin Ratio 1.3 (1.2-2.2); Alkaline Phosphatase 159 U/L (46-116); Anion Gap 9 (7-16); Aspartate Amino Transferase 18 U/L (0-34); BUN/Creatinine Ratio 14 Ratio (12-20); Bilirubin,Total 0.6 mg/dL (0.3-1.2); Blood Urea Nitrogen 11 mg/dL (9-23); Calcium 7.6 mg/dL (8.3-10.6); Calcium (Corrected) 8.8 mg/dL (8.5-10.1); Carbon Dioxide 24.9 mMol/L (20.0-31.0); Cardiac Risk Estimate 3.8 RATIO (4.0-6.7); Chloride 97 mMol/L (98-107); Cholesterol 68 mg/dL (132-200); Creatinine (Component) 0.8 mg/dL (0.6-1.3); Estimated Creatinine Clearance 69.0 mL/min (>60); Globulin 1.9 gm/dL (2.3-3.5); Glucose 114 mg/dL (74-106); HDL Cholesterol 18 mg/dL (40-60); LDL Cholesterol,Calculated 28 mg/dL (0-130); Magnesium 1.5 mg/dL (1.6-2.6); Osmolality,Calculated 263 (275-295); Phosphorous 2.5 mg/dL (2.4-5.1); Potassium 3.5 mMol/L (3.4-5.1); Sodium 131 mMol/L (136-145); Thyroid Stimulating Hormone 1.67 uIU/mL (0.55-4.78); Total Protein 4.4 gm/dL (5.7-8.2); Triglycerides 110 mg/dL (30-150); eGFR > 60 See Note
[2025-05-05] MEDS: LOSARTAN POTASSIUM 25 MG TABLET 100 MG PO (08:05)
[2025-05-05] MEDS: DOCUSATE SOD 100 MG CAPSULE PO (08:05)
[2025-05-05] MEDS: TAMSULOSIN HCL 0.4 MG CAPSULE PO (08:06)
[2025-05-05] MEDS: Magnesium Sulfate 4 GM Ivpb 4 GM/50 ML BAG IV (08:21)
[2025-05-05] MEDS: POTASSIUM CHLORIDE 10% 20 MEQ/15 ML UDC PO (08:22)
[2025-05-05 09:37] LABS: Immature Reticulocyte Fraction 26.9 % (2.3-13.4); Reticulocyte % (Auto) 4.0 % (0.5-1.5); Reticulocyte Absolute Auto 126.6 Biln/L (25.0-75.0); Reticulocyte Hgb Content 25.4 pg (28.0-35.0)
--- NOTE | 2025-05-05 09:56 | ESPR_ITS ---
<Statement entered by Alcira Sommer MD - 05/13/25 09:13> I reviewed above note and agree with findings and plans. I have also personally examined the patient with medicine team and went over assessment and plan with medical team including automotive internet sales manager and resident physician. <Statement entered by Sriram Julian MD - 05/05/25 15:26> Patient was examined and case was reviewed with team including attending physician. Note reviewed, I agree with most of its contents and agree with the patient's care as documented by Dr. Jeffery Patient seen today at the bedside found awake, alert, orientedx3. Overnight patient had RR and Stroke alert was called for new onset weakness. Vital signs and labs reviewed. MRI brain shows Negative for acute hemorrhage mass effect or midline shift, No acute infarct. Multiple old infarcts. Lack of filling right internal carotid artery petrous juxtasellar, lack of filling M1 segment right middle cerebral artery. Decreased filling right middle cerebral artery trifurcation vessels. Patient pending Echo as part of CVA work up. Patient pending EGD by GI services for acute GI bleed. Case discussed with my attending Dr. Kemal Julian MD PGY-2 Documentation for date of: 05/05/25 Subjective Subjective Interval history: Patient seen and examined this morning. Reports tunnel vision in the left eye since overnight event for stroke alert. Denies headache, dizziness, speech difficulty, facial droop, chest pain, shortness of breath, nausea, vomiting, melena, hematochezia, or hematuria. States left-sided weakness is back to baseline. Tolerated blood transfusions without issue. No new bleeding symptoms. Plan to do EGD today, pending MRI and Echo. Exam Vital Signs Temp Pulse Resp BP Pulse Ox O2 Del Method 98.2 F 92 16 110/60 96 Room Air 05/05/25 08:00 05/05/25 08:05 05/05/25 08:00 05/05/25 08:05 05/05/25 08:00 05/05/25 08:00 Narrative Exam General: Awake, alert, in no acute distress HEENT: PERRL, EOMI, reports left-sided visual field deficit Cardiac: Regular rate and rhythm, no murmurs Pulmonary: Clear to auscultation bilaterally Abdomen: Soft, NT/ND, +BS Neurologic: * Speech clear, no aphasia or dysarthria * Facial symmetry intact * Left upper and lower extremity weakness with drift * Sensation intact Extremities: No new edema or erythema Objective Labs 05/05/25 04:20 05/05/25 04:20 Labs: Laboratory Results - last 24 hr 05/04/25 05/04/25 05/05/25 08:45 21:40 02:29 WBC 9.0 RBC 3.16 L Hgb 9.5 L D 8.6 L Hct 28.9 L 25.7 L MCV 81 MCH 27.2 MCHC 33.5 RDW Std Deviation 44.7 H Plt Count 440 D Neut % (Auto) 80 Lymph % (Auto) 10 [place] % (Auto) 8 Eos % (Auto) 1 Baso % (Auto) 0 Neut # (Auto) 7.2 Lymph # (Auto) 0.9 L [place] # (Auto) 0.7 Eos # (Auto) 0.1 Baso # (Auto) 0.0 Immature Gran # (Auto) 0.10 H Absolute Nucleated RBC 0.00 Immature Gran % 1 H Nucleated RBC % 0 Smear Path Review Sent to Pathologist Retic Count (auto) Cancelled Absolute Retic Cancelled Immature Retic Fraction Cancelled Retic Hgb Content CHr Cancelled PT 11.0 INR 1.0 APTT 31.9 Sodium 131 L Potassium 3.6 D Chloride 99 Carbon Dioxide 23.0 Anion Gap 9 BUN 12 Creatinine 0.7 Estim Creat Clear Calc 78.8 eGFR > 60 BUN/Creatinine Ratio 17 [address] Glu mg/dL Hemoglobin A1c Calculated Osmolality 265 L Lactic Acid 1.3 Calcium 7.4 L Corrected Calcium 8.6 Phosphorus Magnesium 1.5 L Iron 14 L TIBC 167 L Iron Saturation 8 L Unsat Iron Binding 153 L Ferritin 173 Total Bilirubin 0.6 AST 18 ALT < 7 L Alkaline Phosphatase 156 H Troponin I < 0.020 Total Protein 4.2 L Albumin 2.5 L Globulin 1.7 L Albumin/Globulin Ratio 1.5 Triglycerides Cholesterol LDL Cholesterol, Calc HDL Cholesterol Cholesterol/HDL Ratio TSH Blood Type A Positive Antibody Screen NEGATIVE Crossmatch See Detail Blood Bank Wristband ID Yes 05/05/25 04:20 WBC 8.7 RBC 3.16 L Hgb 8.7 L Hct 25.9 L MCV 82 MCH 27.5 MCHC 33.6 RDW Std Deviation 45.8 H Plt Count 476 H D Neut % (Auto) 82 H Lymph % (Auto) 7 L [place] % (Auto) 8 Eos % (Auto) 1 Baso % (Auto) 0 Neut # (Auto) 7.2 Lymph # (Auto) 0.6 L [place] # (Auto) 0.7 Eos # (Auto) 0.1 Baso # (Auto) 0.0 Immature Gran # (Auto) 0.12 H Absolute Nucleated RBC 0.00 Immature Gran % 1 H Nucleated RBC % 0 Smear Path Review Retic Count (auto) 4.0 H Absolute Retic 126.6 H Immature Retic Fraction 26.9 H Retic Hgb Content CHr 25.4 L PT INR APTT Sodium 131 L Potassium 3.5 Chloride 97 L Carbon Dioxide 24.9 Anion Gap 9 BUN 11 Creatinine 0.8 Estim Creat Clear Calc 69.0 eGFR > 60 BUN/Creatinine Ratio 14 [address] Glu mg/dL 166 H Hemoglobin A1c 7.4 H Calculated Osmolality 263 L Lactic Acid Calcium 7.6 L Corrected Calcium 8.8 Phosphorus 2.5 Magnesium 1.5 L Iron TIBC Iron Saturation Unsat Iron Binding Ferritin Total Bilirubin 0.6 AST 18 ALT < 7 L Alkaline Phosphatase 159 H Troponin I Total Protein 4.4 L Albumin 2.5 L Globulin 1.9 L Albumin/Globulin Ratio 1.3 Triglycerides 110 Cholesterol 68 L LDL Cholesterol, Calc 28 HDL Cholesterol 18 L Cholesterol/HDL Ratio 3.8 L TSH 1.67 Blood Type Antibody Screen Crossmatch Blood Bank Wristband ID Quality Measures Quality Measures VTE prophylaxis Advance care planning discussed with:: patient Assessment & Plan Assessment Current Active Medications: Generic Name Dose Route Start Last Admin Trade Name Freq PRN Reason Stop Dose Admin Acetaminophen 650 mg 05/04/25 16:18 Acetaminophen 325 Mg Tablet PO 06/03/25 16:17 Q6H PRN Fever >100.4 or pain 1-3 Hydrocodone Bitart/Acetaminophen 1 tab 05/04/25 16:18 05/05/25 03:32 Hydrocodone/Apap 5/325 Tablet PO 05/09/25 16:17 1 tab Q6HR PRN Administration PAIN SCALE 4-6 (Moderate Atorvastatin Calcium 80 mg 05/04/25 21:00 05/04/25 20:24 Atorvastatin Calcium 20 Mg Tablet PO 06/03/25 20:59 80 mg HS TOBY Administration Dextrose 25 ml 05/04/25 16:24 Dextrose 50%-Water Inj 50 Ml Syringe IV 06/03/25 16:23 Q15MIN PRN BG 50-70 responsive npo pt Dextrose 50 ml 05/04/25 16:24 Dextrose 50%-Water Inj 50 Ml Syringe IV 06/03/25 16:23 Q15MIN PRN BG <50 OR BG <70 & pt unresponsive Docusate Sodium 100 mg 05/05/25 09:00 05/05/25 08:05 Docusate Sod 100 Mg Capsule PO 06/04/25 08:59 100 mg QDAY TOBY Administration Protocol Duloxetine HCl 30 mg 05/05/25 21:00 Duloxetine Hcl 30 Mg Capsule PO 06/04/25 20:59 HS TOBY Gabapentin 300 mg 05/05/25 06:00 05/05/25 05:04 Gabapentin 300 Mg Capsule PO 06/04/25 05:59 300 mg TID TOBY Administration Glucagon 1 mg 05/04/25 16:24 Glucagon Inj 1 Mg Vial IM Q15MIN PRN BG <70, and no IV access Magnesium Sulfate 4 gm in 50 mls @ 12.5 mls/hr 05/05/25 08:08 05/05/25 08:21 Magnesium Sulfate Ivpb IV 05/05/25 12:07 12.5 mls/hr X1 ONE Administration Insulin Degludec 10 unit 05/04/25 21:00 05/04/25 20:49 Insulin Degludec 5 Unit/0.05 Ml (Per 5 Units) SC 06/03/25 20:59 10 unit HS TOBY Administration Insulin Human Lispro 0 unit 05/04/25 17:00 05/05/25 07:18 Insulin Lispro (Admelog) 1 Unit/0.01 Ml Unit SC 06/03/25 16:59 Not Given AC [facility] Protocol Levetiracetam 750 mg 05/05/25 09:00 05/05/25 08:05 Levetiracetam 250 Mg Tablet PO 06/04/25 08:59 750 mg QDAY TOBY Administration Losartan Potassium 100 mg 05/05/25 09:00 05/05/25 08:05 Losartan Potassium 25 Mg Tablet PO 06/04/25 08:59 100 mg QDAY TOBY Administration Morphine Sulfate 1 mg 05/04/25 16:18 05/05/25 08:22 Morphine Sulf Inj 4 Mg/Ml Vial IVP 05/09/25 16:17 1 mg Q4HR PRN Administration PAIN SCALE 7-10 (Severe Ondansetron HCl 4 mg 05/04/25 16:18 Ondansetron Inj 2 Mg/Ml Inj 2 Ml IVP 06/03/25 16:17 Q6H PRN NAUSEA OR VOMITING Protocol Pantoprazole Sodium 40 mg 05/04/25 21:00 05/05/25 08:06 Pantoprazole Inj 40 Mg Vial IVP 06/03/25 20:59 40 mg BID TOBY Administration Tamsulosin HCl 0.4 mg 05/05/25 09:00 05/05/25 08:06 Tamsulosin Hcl 0.4 Mg Capsule PO 06/04/25 08:59 0.4 mg QDAY TOBY Administration Tizanidine HCl 6 mg 05/05/25 00:54 05/05/25 01:08 Tizanidine Hcl 2 Mg Tablet PO 06/04/25 00:53 6 mg Q6HR PRN Administration Muscle Spasm Plan 65-year-old male with prior CVA and severe carotid disease on DAPT, admitted for severe iron deficiency anemia requiring transfusion, now with overnight stroke alert for worsening left-sided weakness, likely recrudescence vs new ischemic CVA, pending MRI and echo. Pending EGD today with Dr Coronado. # Acute Neurologic Deficit, CVA vs Recrudescence Overnight stroke alert for worsening left-sided weakness with new left-eye tunnel vision this morning. NIHSS 4. CT/CTA negative for acute hemorrhage or LVO; chronic right ICA occlusion present. Not a candidate for thrombolytics due to unclear last known well and active GI bleeding/anemia. Differential includes new ischemic CVA vs recrudescence of prior stroke. Plan: * Neuro checks Q4H * MRI brain without contrast pending * TTE with bubble pending * Telemetry monitoring * Hold ASA and Plavix pending GI and neurology clearance * Continue high-intensity statin * Follow neurology recommendations # Symptomatic anemia # Iron deficiency anemia Hgb 6.7 with tachycardia, conjunctival pallor, and positive FOBT. Iron 14, saturation 8%, albumin low, thrombocytosis consistent with iron deficiency. Likely chronic blood loss vs malabsorption. No evidence of acute hemorrhage. Hgb now improved to 8.7 after 2 units PRBC. Iron studies consistent with severe iron deficiency, FOBT positive, no overt bleeding. Plan: * Hold NSAIDs * Plan to do EGD today with Dr Coronado. * NPO except meds * Start Iron supplementation after GI findings. * Recheck iron studies post-supplementation outpatient. * Monitor vitals and symptoms closely # Left upper extremity swelling/deformity The patient has chronic left arm deformity (prior injury) with pitting edema and recent fall-related pain. The ultrasound of the left arm was negative for DVT, but there are multiple lymph nodes near the clavicle. Plan: * Pain control * Outpatient follow-up CT soft tissue neck/chest with contrast to evaluate lymphadenopathy # Type 2 diabetes mellitus The patient has poorly controlled diabetes (glucose 256 on admission). He is on insulin Lantus 10 units nightly. He also takes Rybelsus and glipizide. Plan: * Continue home insulin degludec 10 units nightly * Sliding scale insulin ACHS * Continue home meds once med recs are completed # Hypertension # Chronic Right ICA Occlusion # History of CVA # Hyperlipidemia The patient has hypertension (currently on losartan 100 mg and amlodipine) Also severe carotid artery disease, chronic right ICA occlusion with history of CVA. DAPT currently held due to bleeding risk. He has a history of ischemic stroke (2021). Blood pressure is currently elevated (154/91) but stable with medication. Plan: * Hold aspirin and Plavix, will reassess with GI if bleeding source identified. * Continue losartan 100 mg daily * Continue atorvastatin 80 mg nightly * Follow up Lipid panel in AM # Hypomagnesemia Mild hypomagnesemia (Mg 1.5). Plan: * Replete magnesium * Recheck level tomorrow # Chronic pain (left leg/hip) The patient has chronic left leg pain (prior fractures), worsened by movement. No surgical intervention for prior fractures. Significant discomfort limits mobility Plan: * Resume home [place] PRN * Avoid NSAIDs * Physical therapy evaluation Health Maintenance Disposition: Admitted to medicine for further management. Feeding: Carb consistent Thromboprophylaxis: SCD GI Prophylaxis: PPI BID Code Status: DNR/DNI confirmed with patient and POLST. ----- Plan discussed with attending physician Dr. Sommer and senior resident Dr. Ang Jeffery MD PGY-1 Internal Medicine
[2025-05-05 10:08] LABS: Vitamin B12 1948 pg/mL (211-911)
--- NOTE | 2025-05-05 11:39 | PC.NURSE ---
Spoke with Dr. Shin about concerns for discharging this pt. home. Pt. has to see primary care doctor tomorrow to get referral for home health completed and pt. is aware of that and aware of importance of appointment. pt. refuses to go to SNF due to refusal to pay copay, pt. reports having funds for this but refuses to pay for it. Dr. Shin aware of RN concern for pt. safe discharge. Per Dr. Shin we have exhausted all options for patient, SS got pt. into adult daycare and pt. agrees to go there. Dr. Shin aware pt. is AOX4 and was educated completely and thoroughly on discharge instructions and verbalizes understanding importance of follow up appointment and medication instructions.
--- NOTE | 2025-05-05 12:40 | PC.NURSE ---
Dr. Sommer aware pt. reports feeling like sugar is low, RN assessed bedside glucose and reading came back at 89. aware pt. NPO for EGD, orders to give juice x1 for now. RN recs D5 infusion until procedure and Denies at this. no further orders at this time.
--- NOTE | 2025-05-05 13:53 | PC.SS ---
Yang Martines is a 65 year old male admitted to [facility] for Acute GI Bleed. Pt weas recently admitted to [facility] from [facility]. Pt medical decision maker in emergency is his niece Alfredo [place] [phone]. Pt is a max assist, pt will return to [facility] upon medical clearance. Pt will need gurney transport and has modiv coverage. SS will remain available for any additional needs or concerns.
--- NOTE | 2025-05-05 15:19 | PC.PT ---
Patient is safe to ambulate to the bathroom with 1 staff and a FWW. RN made aware.
--- NOTE | 2025-05-05 19:00 | PD.RESCONSUL ---
HPI Data of Consult Requesting Physician: Alcira Sommer MD Admitting Provider: Alcira Sommer MD Attending Provider: Alcira Sommer MD Primary Care Provider: LORRIE De Souza Consult Narrative Reason for consult: Stroke rule out History of present illness: Patient is a 65-year-old male with history of CVA without residual deficits, severe carotid atherosclerosis on DAPT, type 2 diabetes mellitus, hypertension, and hyperlipidemia, presenting from [facility] with severe symptomatic anemia (Hgb 6.7) found on routine labs, without overt signs of acute bleeding. Patient did not notice any bloody or dark stools as of late. Last night a rapid response and stroke alert was called due to an episode of left upper arm weakness and left sided facial numbness which was new. Patient also endorsed a left frontotemporal headache at that time. He is usually on amitryptyline and notes that he did not receive his meds due to being NPO for EGD. Patient's aspirin and Plavix is also held at this time due to GI bleed. Patient received 2 PRBC since arrival. Neurology is consulted for stroke rule out. cc:: cc: Alcira Sommer MD Past Medical History Past Medical History NEUROLOGIC: Positive Seizures CARDIAC: Positive Hypercholesterolemia and Hypertension ENDOCRINE: Positive Diabetes Mellitus Type 2 Surgical History OTHER SURGICAL HX: past surgical history of his right shoulder x3 and his right knee. Social History SOCIAL: Patient smokes about 3 to 6 cigarettes/day Exam Vital Signs Temp Pulse Resp BP Pulse Ox O2 Del Method O2 Flow Rate 98.3 F 94 15 121/71 95 Room Air 3 05/06/25 04:00 05/06/25 04:00 05/06/25 04:00 05/06/25 04:00 05/06/25 04:00 05/06/25 04:00 05/05/25 20:45 Narrative Exam Physical Exam General: Awake and in no acute distress. Conversational and non-toxic appearing. HEENT: Normocephalic, atraumatic, mucous membranes moist. Heart: Regular rate and rhythm, normal S1 and S2, no murmurs. Lungs: Clear to auscultation with no wheezing or crackles. Abdomen: Soft, nondistended, nontender, positive bowel sounds. ?No guarding or rebound tenderness. Neuro Stroke Exam: -Alert and oriented x3. -CN II-XII intact. -Normal visual bell. -Normal fluent speech. -No facial droop. -Strength 5/5 bilateral arms, 5/5 radiology rn strength. -Strength 5/5 right lower extremity, 3/5 left lower extremity due to chronic hip condition. -Intact sensation bilaterally. -Normal [id number], normal ajcq-hd-[id number] testing. Extremities: No edema. Skin: No rash or ecchymoses. Results Labs 05/06/25 05:14 05/06/25 05:14 Labs: Short CBC 05/06/25 Range/Units 05:14 WBC 8.5 (3.8-10.6) Thou/mm3 Hgb 9.5 L (13.5-16.0) g/dL Hct 28.0 L (41.0-53.0) % Plt Count 507 H D (140-440) Thou/mm3 BMP 05/05/25 04:20 Sodium 131 L Potassium 3.5 Chloride 97 L Carbon Dioxide 24.9 BUN 11 Creatinine 0.8 Glucose 114 H Calcium 7.6 L Liver Function 05/05/25 Range/Units 04:20 Total Bilirubin 0.6 (0.3-1.2) mg/dL AST 18 (0-34) U/L ALT < 7 L (10-49) U/L Alkaline Phosphatase 159 H (46-116) U/L Albumin 2.5 L (3.4-4.8) gm/dL Quality Measures Quality Measures VTE prophylaxis Advance care planning discussed with:: patient Medications Home Medications and Allergies Home Medications ?Medication ?Instructions ?Recorded ?Confirmed ?Type amitriptyline 50 mg tablet 50 mg PO HS #0 tabs 07/16/14 05/05/25 History metformin 500 mg tablet 1,000 mg PO QDAY ##0 07/16/14 05/05/25 History levetiracetam 500 mg tablet 750 mg PO QDAY #0 tabs 12/28/14 05/05/25 History (Keppra) clopidogrel 75 mg tablet 75 mg PO QDAY 08/03/22 05/05/25 History duloxetine 30 mg capsule,delayed 30 mg PO HS 08/03/22 05/05/25 History release gabapentin 300 mg capsule 300 mg PO TID 08/03/22 05/05/25 History glipizide 5 mg tablet 5 mg PO BID 08/03/22 05/05/25 History losartan 100 mg tablet 100 mg PO QDAY 08/03/22 05/05/25 History tizanidine 4 mg tablet 6 mg PO Q6HR PRN Muscle Spasm 08/03/22 05/05/25 History Allergies Allergy/AdvReac Type Severity Reaction Status Date / Time adhesive tape Allergy Severe Rash Verified 05/04/25 08:43 Visit Medications Acetaminophen (Acetaminophen 325 Mg Tablet) 650 mg PO Q6H PRN PRN Reason: Fever >100.4 or pain 1-3 Stop: 06/03/25 16:17 Hydrocodone Bitart/Acetaminophen (Hydrocodone/Apap 5/325 Tablet) 1 tab PO Q6HR PRN PRN Reason: PAIN SCALE 4-6 (Moderate Stop: 05/09/25 16:17 Last Admin: 05/05/25 13:13 Dose: 1 tab Amitriptyline HCl (Amitriptyline Hcl 25 Mg Tablet) 50 mg PO [facility] Stop: 06/04/25 20:59 Last Admin: 05/05/25 21:12 Dose: 50 mg Atorvastatin Calcium (Atorvastatin Calcium 20 Mg Tablet) 80 mg PO [facility] Stop: 06/03/25 20:59 Last Admin: 05/05/25 21:12 Dose: 80 mg Dextrose (Dextrose 50%-Water Inj 50 Ml Syringe) 25 ml IV Q15MIN PRN PRN Reason: BG 50-70 responsive npo pt Stop: 06/03/25 16:23 Dextrose (Dextrose 50%-Water Inj 50 Ml Syringe) 50 ml IV Q15MIN PRN PRN Reason: BG <50 OR BG <70 & pt unresponsive Stop: 06/03/25 16:23 Docusate Sodium (Docusate Sod 100 Mg Capsule) 100 mg PO QDAY [facility]; Protocol Stop: 06/04/25 08:59 Last Admin: 05/05/25 08:05 Dose: 100 mg Duloxetine HCl (Duloxetine Hcl 30 Mg Capsule) 30 mg PO [facility] Stop: 06/04/25 20:59 Last Admin: 05/05/25 21:13 Dose: 30 mg Gabapentin (Gabapentin 300 Mg Capsule) 300 mg PO TID [facility] Stop: 06/04/25 05:59 Last Admin: 05/06/25 05:05 Dose: 300 mg Glucagon (Glucagon Inj 1 Mg Vial) 1 mg IM Q15MIN PRN PRN Reason: BG <70, and no IV access Insulin Degludec (Insulin Degludec 5 Unit/0.05 Ml (Per 5 Units)) 10 unit SC [facility] Stop: 06/03/25 20:59 Last Admin: 05/05/25 21:13 Dose: 10 unit Insulin Human Lispro (Insulin Lispro (Admelog) 1 Unit/0.01 Ml Unit) 0 unit SC [facility]; Protocol Stop: 06/03/25 16:59 Last Admin: 05/05/25 17:26 Dose: Not Given Levetiracetam (Levetiracetam 250 Mg Tablet) 750 mg PO QDAY [facility] Stop: 06/04/25 08:59 Last Admin: 05/05/25 08:05 Dose: 750 mg Losartan Potassium (Losartan Potassium 25 Mg Tablet) 100 mg PO QDAY [facility] Stop: 06/04/25 08:59 Last Admin: 05/05/25 08:05 Dose: 100 mg Morphine Sulfate (Morphine Sulf Inj 4 Mg/Ml Vial) 1 mg IVP Q4HR PRN PRN Reason: PAIN SCALE 7-10 (Severe Stop: 05/09/25 16:17 Last Admin: 05/06/25 05:04 Dose: 1 mg Ondansetron HCl (Ondansetron Inj 2 Mg/Ml Inj 2 Ml) 4 mg IVP Q6H PRN; Protocol PRN Reason: NAUSEA OR VOMITING Stop: 06/03/25 16:17 Pantoprazole Sodium (Pantoprazole Inj 40 Mg Vial) 40 mg IVP BID [facility] Stop: 06/03/25 20:59 Last Admin: 05/05/25 21:13 Dose: 40 mg Sucralfate (Sucralfate Susp 1 Gm/10 Ml Udc) 1 gm PO QID [facility] Stop: 06/04/25 20:59 Last Admin: 05/06/25 05:05 Dose: 1 gm Tamsulosin HCl (Tamsulosin Hcl 0.4 Mg Capsule) 0.4 mg PO QDAY [facility] Stop: 06/04/25 08:59 Last Admin: 05/05/25 08:06 Dose: 0.4 mg Tizanidine HCl (Tizanidine Hcl 2 Mg Tablet) 6 mg PO Q6HR PRN PRN Reason: Muscle Spasm Stop: 06/04/25 00:53 Last Admin: 05/05/25 01:08 Dose: 6 mg Discontinued Medications Hydrocodone Bitart/Acetaminophen (Hydrocodone/Apap 10/325 Tab) 1 tab PO X1 ONE Stop: 05/04/25 11:08 Last Admin: 05/04/25 11:15 Dose: 1 tab Duloxetine HCl (Duloxetine Hcl 30 Mg Capsule) 30 mg PO X1 ONE Stop: 05/05/25 00:56 Last Admin: 05/05/25 01:08 Dose: 30 mg Sodium Chloride (Ns) 500 mls @ 999 mls/hr IV .Q31M ONE Stop: 05/04/25 10:19 Last Infusion: 05/04/25 11:24 Dose: Infused Magnesium Sulfate (Magnesium Sulfate Ivpb) 4 gm in 50 mls @ 12.5 mls/hr IV X1 ONE Stop: 05/05/25 12:07 Last Infusion: 05/06/25 04:31 Dose: Infused Lactated Ringer's (Lactated Ringers) 1,000 mls @ 125 mls/hr IV .Q8H ONE Stop: 05/06/25 03:47 Last Infusion: 05/06/25 03:48 Dose: Infused Potassium Chloride (Potassium Chloride 10% 20 Meq/15 Ml Udc) 20 meq PO X1 ONE Stop: 05/05/25 08:09 Last Admin: 05/05/25 08:22 Dose: 20 meq Assessment & Plan Plan 65-year-old male with history of CVA without residual deficits, severe carotid atherosclerosis on DAPT, type 2 diabetes mellitus, hypertension, and hyperlipidemia, presenting from [facility] with severe symptomatic anemia (Hgb 6.7) found on routine labs, without overt signs of acute bleeding, neurology was consulted for stroke rule out. #Stroke recrudescence vs. complex migraine vs. TIA MRI showed multiple old infarcts, and MRA showed lack of filling R internal carotid artery M1 segment R MCA. Patient has been trying to see a vascular surgeon for endarterectomy but has faced insurance issues. -Hold aspirin and Plavix due to GI bleed until EGD -Pending echo read Patient was discussed with the Neurology attending, Dr. Garcia. Thank you for allowing us to participate in the care of this patient. Devika Vacne, PGY-3 Attending Provider Attestation/Addendum I personally have seen and examined the patient at the bedside and I agreed with the resident's findings assessment and plan of care. Presenting symptoms are most likely consistent with TIA/complex migraine. Hold antiplatelet agent therapy secondary to GI. Follow-up with echo report.
[2025-05-05] MEDS: RINGERS LACTATED 1000 ML 1,000 ML 125 ML IV (19:48)
--- NOTE | 2025-05-05 20:03 | SUR.PHASEI ---
2002 patient arrived to recovery resting comfortably in [facility], on oxygen 3L via nasal cannula, breathing unlabored, vital signs stable, denies pain and nausea, report received from Vanessa POTTER and Dr. Delgadillo
--- NOTE | 2025-05-05 20:42 | SUR.PHASEI ---
2042 patient transported via gurney to room 275 without incident
[2025-05-05] MEDS: ATORVASTATIN CALCIUM 20 MG TABLET 80 MG PO (21:12)
[2025-05-05] MEDS: AMITRIPTYLINE HCL 25 MG TABLET 50 MG PO (21:12)
[2025-05-05] MEDS: INSULIN DEGLUDEC 5 UNIT/0.05 ML (PER 5 UNITS) 10 UNIT SC (21:13)
[2025-05-05] MEDS: SUCRALFATE SUSP 1 GM/10 ML UDC PO (21:13)
[2025-05-06] VITALS (10 sets, daily range): BP systolic 92–129; BP diastolic 59–81; PULSE 61–105; RESP 13–94; TEMP 36.5–37.4; O2SAT 94–97; BMI 16.0; BMI 13.0
[2025-05-06] MEDS: MORPHINE SULF INJ 4 MG/ML VIAL 1 MG IVP ×2 (05:04→18:08)
[2025-05-06] MEDS: GABAPENTIN 300 MG CAPSULE PO ×3 (05:05→21:54)
[2025-05-06] MEDS: SUCRALFATE SUSP 1 GM/10 ML UDC PO ×4 (05:05→21:54)
[2025-05-06 05:44] LABS: Basophils # (Auto) 0.0 Thou/mm3 (0.0-0.2); Basophils % (Auto) 0 % (0-2.5); Eosinophils # (Auto) 0.1 Thou/mm3 (0.0-0.5); Eosinophils % (Auto) 1 % (0-10); Hematocrit 28.0 % (41.0-53.0); Hemoglobin 9.5 g/dL (13.5-16.0); Immature Granulocytes Auto 0.11 Thou/mm3 (0.00-0.00); Lymphocytes # (Auto) 0.8 Thou/mm3 (1.0-4.8); Lymphocytes % (Auto) 9 % (10-50); Mean Corpuscular HGB Conc 33.9 g/dl (31.0-37.0); Mean Corpuscular Hemoglobin 27.9 pg (25.0-35.0); Mean Corpuscular Volume 82 fL (80-100); Monocytes # (Auto) 0.7 Thou/mm3 (0.0-0.8); Monocytes % (Auto) 8 % (0-12); Neutrophils # (Auto) 6.9 Thou/mm3 (1.8-7.7); Neutrophils % (Auto) 81 % (37-80); Nucleated Red Blood Cell # 0.00 Thou/mm3 (0.00-0.00); Nucleated Red Blood Cell % 0 /100 WBC (0); Platelet Count 507 Thou/mm3 (140-440); RDW Standard Deviation 47.4 fL (35.1-43.9); Red Blood Count 3.40 Miln/mm3 (4.50-5.90); White Blood Count 8.5 Thou/mm3 (3.8-10.6)
[2025-05-06 06:23] LABS: Alanine Aminotransferase 19 U/L (10-49); Albumin, Serum 2.6 gm/dL (3.4-4.8); Albumin/Globulin Ratio 1.2 (1.2-2.2); Alkaline Phosphatase 356 U/L (46-116); Anion Gap 8 (7-16); Aspartate Amino Transferase 68 U/L (0-34); BUN/Creatinine Ratio 14 Ratio (12-20); Bilirubin,Total 1.4 mg/dL (0.3-1.2); Blood Urea Nitrogen 10 mg/dL (9-23); Calcium 8.0 mg/dL (8.3-10.6); Calcium (Corrected) 9.1 mg/dL (8.5-10.1); Carbon Dioxide 25.8 mMol/L (20.0-31.0); Chloride 99 mMol/L (98-107); Creatinine (Component) 0.7 mg/dL (0.6-1.3); Estimated Creatinine Clearance 75.6 mL/min (>60); Globulin 2.2 gm/dL (2.3-3.5); Glucose 99 mg/dL (74-106); Magnesium 1.9 mg/dL (1.6-2.6); Osmolality,Calculated 265 (275-295); Phosphorous 2.8 mg/dL (2.4-5.1); Potassium 3.7 mMol/L (3.4-5.1); Sodium 133 mMol/L (136-145); Total Protein 4.8 gm/dL (5.7-8.2); eGFR > 60 See Note
--- NOTE | 2025-05-06 08:08 | XR_ITS ---
Examination: Abdomen sonogram, Limited Date and time of exam: May 06, 2025, 1109 hours INDICATIONS: Elevated bilirubin on laboratory examination today. Technique: Real-time caldwell scale transabdominal sonographic images of the upper abdomen obtained. Findings: Gallbladder sludge Tiny gallstones Normal gallbladder wall 0.2 cm Common bile duct 0.7 cm no stones Pancreatic head 3.8 cm with edema Liver 16.3 cm lobular contour fatty infiltration Normal hepatopetal portal venous flow Patent IVC IMPRESSION: Cholelithiasis, negative for cholecystitis No common bile duct stones Suspicious for pancreatitis, consider CT scan abdomen pelvis post contrast follow-up
[2025-05-06] MEDS: DOCUSATE SOD 100 MG CAPSULE PO (08:24)
[2025-05-06] MEDS: TAMSULOSIN HCL 0.4 MG CAPSULE PO (08:24)
[2025-05-06] MEDS: LOSARTAN POTASSIUM 25 MG TABLET 100 MG PO (08:24)
[2025-05-06] MEDS: HYDROcodone/APAP 5/325 TABLET 1 TAB PO ×2 (10:31→22:05)
--- NOTE | 2025-05-06 14:12 | ESPR_ITS ---
Documentation for date of: 05/06/25 Subjective Subjective Interval history: Patient underwent EGD last night which indicated non-bleeding esophageal ulcers and gastritis, biopsies were obtained, patient was started on Carafate and PUD diet was initiated. Echocardiogram reading indicative of EF 40-45% with negative bubble study. Morning labs indicated stable HgB at 9.5. Per GI Dr. Coronado, patient OK to be restarted on DAPT. Anticipating patient to be discharged within 24-48 hours if he remains stable. Exam Vital Signs Temp Pulse Resp BP Pulse Ox O2 Del Method O2 Flow Rate 98.5 F 96 13 92/60 96 Room Air 3 05/06/25 08:00 05/06/25 08:24 05/06/25 08:00 05/06/25 08:24 05/06/25 09:00 05/06/25 08:00 05/05/25 20:45 Narrative Exam General: Awake, alert, in no acute distress HEENT: PERRL, EOMI, reports left-sided visual field deficit Cardiac: Regular rate and rhythm, no murmurs Pulmonary: Clear to auscultation bilaterally Abdomen: Soft, NT/ND, +BS Neurologic: * Speech clear, no aphasia or dysarthria * Facial symmetry intact * Left upper and lower extremity weakness with drift * Sensation intact Extremities: No new edema or erythema Objective Labs 05/06/25 05:14 05/06/25 05:14 Labs: Laboratory Results - last 24 hr 05/06/25 05:14 WBC 8.5 RBC 3.40 L Hgb 9.5 L Hct 28.0 L MCV 82 MCH 27.9 MCHC 33.9 RDW Std Deviation 47.4 H Plt Count 507 H D Neut % (Auto) 81 H Lymph % (Auto) 9 L [place] % (Auto) 8 Eos % (Auto) 1 Baso % (Auto) 0 Neut # (Auto) 6.9 Lymph # (Auto) 0.8 L [place] # (Auto) 0.7 Eos # (Auto) 0.1 Baso # (Auto) 0.0 Immature Gran # (Auto) 0.11 H Absolute Nucleated RBC 0.00 Immature Gran % 1 H Nucleated RBC % 0 Sodium 133 L Potassium 3.7 Chloride 99 Carbon Dioxide 25.8 Anion Gap 8 BUN 10 Creatinine 0.7 Estim Creat Clear Calc 75.6 eGFR > 60 BUN/Creatinine Ratio 14 Glucose 99 Calculated Osmolality 265 L Calcium 8.0 L Corrected Calcium 9.1 Phosphorus 2.8 Magnesium 1.9 Total Bilirubin 1.4 H D AST 68 H ALT 19 Alkaline Phosphatase 356 H D Total Protein 4.8 L Albumin 2.6 L Globulin 2.2 L Albumin/Globulin Ratio 1.2 Quality Measures Quality Measures VTE prophylaxis Advance care planning discussed with:: patient Assessment & Plan Assessment Current Active Medications: Generic Name Dose Route Start Last Admin Trade Name Freq PRN Reason Stop Dose Admin Acetaminophen 325 mg 05/06/25 10:12 Acetaminophen 325 Mg Tablet PO 06/03/25 16:17 Q6H PRN Fever >100.4 or pain 1-3 Hydrocodone Bitart/Acetaminophen 1 tab 05/04/25 16:18 05/06/25 10:31 Hydrocodone/Apap 5/325 Tablet PO 05/09/25 16:17 1 tab Q6HR PRN Administration PAIN SCALE 4-6 (Moderate Amitriptyline HCl 50 mg 05/05/25 21:00 05/05/25 21:12 Amitriptyline Hcl 25 Mg Tablet PO 06/04/25 20:59 50 mg HS TOBY Administration Aspirin 81 mg 05/07/25 09:00 Aspirin Ec 81 Mg Tabec PO 06/06/25 08:59 QDAY TOBY Atorvastatin Calcium 80 mg 05/04/25 21:00 05/05/25 21:12 Atorvastatin Calcium 20 Mg Tablet PO 06/03/25 20:59 80 mg HS TOBY Administration Clopidogrel Bisulfate 75 mg 05/07/25 09:00 Clopidogrel Bisulfate 75 Mg Tablet PO 06/06/25 08:59 QDAY TOBY Dextrose 25 ml 05/04/25 16:24 Dextrose 50%-Water Inj 50 Ml Syringe IV 06/03/25 16:23 Q15MIN PRN BG 50-70 responsive npo pt Dextrose 50 ml 05/04/25 16:24 Dextrose 50%-Water Inj 50 Ml Syringe IV 06/03/25 16:23 Q15MIN PRN BG <50 OR BG <70 & pt unresponsive Docusate Sodium 100 mg 05/05/25 09:00 05/06/25 08:24 Docusate Sod 100 Mg Capsule PO 06/04/25 08:59 100 mg QDAY TOBY Administration Protocol Duloxetine HCl 30 mg 05/05/25 21:00 05/05/25 21:13 Duloxetine Hcl 30 Mg Capsule PO 06/04/25 20:59 30 mg HS TOBY Administration Gabapentin 300 mg 05/05/25 06:00 05/06/25 13:55 Gabapentin 300 Mg Capsule PO 06/04/25 05:59 300 mg TID TOBY Administration Glucagon 1 mg 05/04/25 16:24 Glucagon Inj 1 Mg Vial IM Q15MIN PRN BG <70, and no IV access Insulin Degludec 10 unit 05/04/25 21:00 05/05/25 21:13 Insulin Degludec 5 Unit/0.05 Ml (Per 5 Units) SC 06/03/25 20:59 10 unit HS TOBY Administration Insulin Human Lispro 0 unit 05/04/25 17:00 05/06/25 12:09 Insulin Lispro (Admelog) 1 Unit/0.01 Ml Unit SC 06/03/25 16:59 Not Given AC TOBY Protocol Levetiracetam 750 mg 05/05/25 09:00 05/06/25 08:24 Levetiracetam 250 Mg Tablet PO 06/04/25 08:59 750 mg QDAY TOBY Administration Losartan Potassium 100 mg 05/05/25 09:00 05/06/25 08:24 Losartan Potassium 25 Mg Tablet PO 06/04/25 08:59 100 mg QDAY TOBY Administration Morphine Sulfate 1 mg 05/04/25 16:18 05/06/25 05:04 Morphine Sulf Inj 4 Mg/Ml Vial IVP 05/09/25 16:17 1 mg Q4HR PRN Administration PAIN SCALE 7-10 (Severe Ondansetron HCl 4 mg 05/04/25 16:18 Ondansetron Inj 2 Mg/Ml Inj 2 Ml IVP 06/03/25 16:17 Q6H PRN NAUSEA OR VOMITING Protocol Pantoprazole Sodium 40 mg 05/04/25 21:00 05/06/25 08:23 Pantoprazole Inj 40 Mg Vial IVP 06/03/25 20:59 40 mg BID TOBY Administration Sucralfate 1 gm 05/05/25 21:00 05/06/25 13:56 Sucralfate Susp 1 Gm/10 Ml Udc PO 06/04/25 20:59 1 gm QID TOBY Administration Tamsulosin HCl 0.4 mg 05/05/25 09:00 05/06/25 08:24 Tamsulosin Hcl 0.4 Mg Capsule PO 06/04/25 08:59 0.4 mg QDAY TOBY Administration Tizanidine HCl 6 mg 05/05/25 00:54 05/05/25 01:08 Tizanidine Hcl 2 Mg Tablet PO 06/04/25 00:53 6 mg Q6HR PRN Administration Muscle Spasm Plan 65-year-old male with prior CVA and severe carotid disease on DAPT, admitted for severe iron deficiency anemia requiring transfusion, now with overnight stroke alert for worsening left-sided weakness, likely recrudescence vs new ischemic CVA, pending MRI and echo. Pending EGD today with Dr Coronado. #Elevated T. Bili #Transaminitis Morning lab significanted for T Bili 1.4 and elevated alk phos of 356 GB US indicated sludge with cholilithiasis with normal CBD Patient asymptomatic Plan: * Follow up AM labs * Patient asymptomatic * Can follow up outpatient for elective surgery # Acute Neurologic Deficit, CVA vs Recrudescence Overnight stroke alert for worsening left-sided weakness with new left-eye tunnel vision this morning. NIHSS 4. CT/CTA negative for acute hemorrhage or LVO; chronic right ICA occlusion present. Not a candidate for thrombolytics due to unclear last known well and active GI bleeding/anemia. Differential includes new ischemic CVA vs recrudescence of prior stroke. Echocardiogram reading showed EF 40-45% with negative bubble study Brain MRI showed: Multiple old infarcts and Lack of filling right internal carotid artery (similar to old imaging) Plan: * Neuro checks Q4H * Telemetry monitoring * Resumed ASA and Plavix per GI and neurology clearance * Continue high-intensity statin # Symptomatic anemia # Iron deficiency anemia Hgb 6.7 with tachycardia, conjunctival pallor, and positive FOBT. Iron 14, saturation 8%, albumin low, thrombocytosis consistent with iron deficiency. Likely chronic blood loss vs malabsorption. No evidence of acute hemorrhage. Hgb now improved to 8.7 after 2 units PRBC. Iron studies consistent with severe iron deficiency, FOBT positive, no overt bleeding. EGD showed non-bleeding esophageal ulcers with gastritis, biopsies obtained Plan: * Hold NSAIDs * PUD diet started * Started on Carafate * Will start Iron supplementation on discharge * Monitor vitals and symptoms closely # Left upper extremity swelling/deformity The patient has chronic left arm deformity (prior injury) with pitting edema and recent fall-related pain. The ultrasound of the left arm was negative for DVT, but there are multiple lymph nodes near the clavicle. Plan: * Pain control * Outpatient follow-up CT soft tissue neck/chest with contrast to evaluate lymphadenopathy # Type 2 diabetes mellitus The patient has poorly controlled diabetes (glucose 256 on admission). He is on insulin Lantus 10 units nightly. He also takes Rybelsus and glipizide. Plan: * Continue home insulin degludec 10 units nightly * Sliding scale insulin ACHS * Continue home meds once med recs are completed # Hypertension # Chronic Right ICA Occlusion # History of CVA # Hyperlipidemia The patient has hypertension (currently on losartan 100 mg and amlodipine) Also severe carotid artery disease, chronic right ICA occlusion with history of CVA. DAPT currently held due to bleeding risk. He has a history of ischemic stroke (2021). Blood pressure is currently elevated (154/91) but stable with medication. Plan: * Resumed aspirin and Plavix per GI and neuro reccs * Continue losartan 100 mg daily * Continue atorvastatin 80 mg nightly * Follow up Lipid panel in AM # Hypomagnesemia Mild hypomagnesemia (Mg 1.5). Plan: * Replete magnesium * Recheck level tomorrow # Chronic pain (left leg/hip) The patient has chronic left leg pain (prior fractures), worsened by movement. No surgical intervention for prior fractures. Significant discomfort limits mobility Plan: * Resume home [place] PRN * Avoid NSAIDs * Physical therapy evaluation Health Maintenance Disposition: Anticipating discharge within 24-48 hours Feeding: Carb consistent Thromboprophylaxis: SCD GI Prophylaxis: PPI BID Code Status: DNR/DNI confirmed with patient and POLST. This patient care was discussed with my attending Dr. Carie Encarnacion MD PGY-3 Disclaimer: Minor errors in director of graduate admissions may be present since this note was dictated by speech recognition software. Attending Provider Attestation/Addendum I have seen and examined the patient. I was physically present for the ferrer portions of the services provided including history, physical exam, diagnosis, treatment plans and orders. I agree with assessment and plan of care as documented by residents. Even though this this note was carefully revised there may still be minor errors in director of graduate admissions due to voice recognition software. Jorge A Darnell MD
--- NOTE | 2025-05-06 14:41 | PD.RESPRO ---
Documentation for date of: 05/06/25 Subjective Subjective Interval history: Patient had EGD last night which showed non bleeding esophageal ulcers and gastritis, biopsies taken. Resumed home aspirin and Plavix as GI approved. Patient has no new episodes of weakness or numbness. Exam Vital Signs Temp Pulse Resp BP Pulse Ox O2 Del Method O2 Flow Rate 98.7 F 100 15 105/62 97 Room Air 3 05/06/25 12:00 05/06/25 12:00 05/06/25 12:05/06/25 12:05/06/25 12:05/06/25 12:05/05/25 20:45 Narrative Exam Physical Exam General: Awake and in no acute distress. Conversational and non-toxic appearing. HEENT: Normocephalic, atraumatic, mucous membranes moist. Heart: Regular rate and rhythm, normal S1 and S2, no murmurs. Lungs: Clear to auscultation with no wheezing or crackles. Abdomen: Soft, nondistended, nontender, positive bowel sounds. ?No guarding or rebound tenderness. Neuro Stroke Exam: -Alert and oriented x3. -CN II-XII intact. -Normal visual bell. -Normal fluent speech. -No facial droop. -Strength 5/5 bilateral arms, 5/5 general medical practitioner strength. -Strength 5/5 right lower extremity, 3/5 left lower extremity due to chronic hip condition. -Intact sensation bilaterally. -Normal [id number], normal [id number]-uh-[id number] testing. Extremities: No edema. Skin: No rash or ecchymoses. Objective Labs 05/08/25 05:50 05/08/25 05:50 Labs: Laboratory Results - last 24 hr 05/06/25 05:14 WBC 8.5 RBC 3.40 L Hgb 9.5 L Hct 28.0 L MCV 82 MCH 27.9 MCHC 33.9 RDW Std Deviation 47.4 H Plt Count 507 H D Neut % (Auto) 81 H Lymph % (Auto) 9 L [place] % (Auto) 8 Eos % (Auto) 1 Baso % (Auto) 0 Neut # (Auto) 6.9 Lymph # (Auto) 0.8 L [place] # (Auto) 0.7 Eos # (Auto) 0.1 Baso # (Auto) 0.0 Immature Gran # (Auto) 0.11 H Absolute Nucleated RBC 0.00 Immature Gran % 1 H Nucleated RBC % 0 Sodium 133 L Potassium 3.7 Chloride 99 Carbon Dioxide 25.8 Anion Gap 8 BUN 10 Creatinine 0.7 Estim Creat Clear Calc 75.6 eGFR > 60 BUN/Creatinine Ratio 14 Glucose 99 Calculated Osmolality 265 L Calcium 8.0 L Corrected Calcium 9.1 Phosphorus 2.8 Magnesium 1.9 Total Bilirubin 1.4 H D AST 68 H ALT 19 Alkaline Phosphatase 356 H D Total Protein 4.8 L Albumin 2.6 L Globulin 2.2 L Albumin/Globulin Ratio 1.2 Quality Measures Quality Measures VTE prophylaxis Advance care planning discussed with:: patient Assessment & Plan Assessment Current Active Medications: Generic Name Dose Route Start Last Admin Trade Name Freq PRN Reason Stop Dose Admin Acetaminophen 325 mg 05/06/25 10:12 Acetaminophen 325 Mg Tablet PO 06/03/25 16:17 Q6H PRN Fever >100.4 or pain 1-3 Hydrocodone Bitart/Acetaminophen 1 tab 05/04/25 16:18 05/06/25 10:31 Hydrocodone/Apap 5/325 Tablet PO 05/09/25 16:17 1 tab Q6HR PRN Administration PAIN SCALE 4-6 (Moderate Amitriptyline HCl 50 mg 05/05/25 21:00 05/05/25 21:12 Amitriptyline Hcl 25 Mg Tablet PO 06/04/25 20:59 50 mg HS TOBY Administration Aspirin 81 mg 05/07/25 09:00 Aspirin Ec 81 Mg Tabec PO 06/06/25 08:59 QDAY TOBY Atorvastatin Calcium 80 mg 05/04/25 21:00 05/05/25 21:12 Atorvastatin Calcium 20 Mg Tablet PO 06/03/25 20:59 80 mg HS TOBY Administration Clopidogrel Bisulfate 75 mg 05/07/25 09:00 Clopidogrel Bisulfate 75 Mg Tablet PO 06/06/25 08:59 QDAY TOBY Dextrose 25 ml 05/04/25 16:24 Dextrose 50%-Water Inj 50 Ml Syringe IV 06/03/25 16:23 Q15MIN PRN BG 50-70 responsive npo pt Dextrose 50 ml 05/04/25 16:24 Dextrose 50%-Water Inj 50 Ml Syringe IV 06/03/25 16:23 Q15MIN PRN BG <50 OR BG <70 & pt unresponsive Docusate Sodium 100 mg 05/05/25 09:00 05/06/25 08:24 Docusate Sod 100 Mg Capsule PO 06/04/25 08:59 100 mg QDAY TOBY Administration Protocol Duloxetine HCl 30 mg 05/05/25 21:00 05/05/25 21:13 Duloxetine Hcl 30 Mg Capsule PO 06/04/25 20:59 30 mg HS TOBY Administration Gabapentin 300 mg 05/05/25 06:00 05/06/25 13:55 Gabapentin 300 Mg Capsule PO 06/04/25 05:59 300 mg TID TOBY Administration Glucagon 1 mg 05/04/25 16:24 Glucagon Inj 1 Mg Vial IM Q15MIN PRN BG <70, and no IV access Insulin Degludec 10 unit 05/04/25 21:00 05/05/25 21:13 Insulin Degludec 5 Unit/0.05 Ml (Per 5 Units) SC 06/03/25 20:59 10 unit HS TOBY Administration Insulin Human Lispro 0 unit 05/04/25 17:00 05/06/25 12:09 Insulin Lispro (Admelog) 1 Unit/0.01 Ml Unit SC 06/03/25 16:59 Not Given AC TOBY Protocol Levetiracetam 750 mg 05/05/25 09:00 05/06/25 08:24 Levetiracetam 250 Mg Tablet PO 06/04/25 08:59 750 mg QDAY TOBY Administration Losartan Potassium 100 mg 05/05/25 09:00 05/06/25 08:24 Losartan Potassium 25 Mg Tablet PO 06/04/25 08:59 100 mg QDAY TOBY Administration Morphine Sulfate 1 mg 05/04/25 16:18 05/06/25 05:04 Morphine Sulf Inj 4 Mg/Ml Vial IVP 05/09/25 16:17 1 mg Q4HR PRN Administration PAIN SCALE 7-10 (Severe Ondansetron HCl 4 mg 05/04/25 16:18 Ondansetron Inj 2 Mg/Ml Inj 2 Ml IVP 06/03/25 16:17 Q6H PRN NAUSEA OR VOMITING Protocol Pantoprazole Sodium 40 mg 05/04/25 21:00 05/06/25 08:23 Pantoprazole Inj 40 Mg Vial IVP 06/03/25 20:59 40 mg BID TOBY Administration Sucralfate 1 gm 05/05/25 21:00 05/06/25 13:56 Sucralfate Susp 1 Gm/10 Ml Udc PO 06/04/25 20:59 1 gm QID TOBY Administration Tamsulosin HCl 0.4 mg 05/05/25 09:00 05/06/25 08:24 Tamsulosin Hcl 0.4 Mg Capsule PO 06/04/25 08:59 0.4 mg QDAY TOBY Administration Tizanidine HCl 6 mg 05/05/25 00:54 05/05/25 01:08 Tizanidine Hcl 2 Mg Tablet PO 06/04/25 00:53 6 mg Q6HR PRN Administration Muscle Spasm Plan 65-year-old male with history of CVA without residual deficits, severe carotid atherosclerosis on DAPT, type 2 diabetes mellitus, hypertension, and hyperlipidemia, presenting from [facility] with severe symptomatic anemia (Hgb 6.7) found on routine labs, without overt signs of acute bleeding, neurology was consulted for stroke rule out. #Stroke recrudescence vs. complex migraine vs. TIA MRI showed multiple old infarcts, and MRA showed lack of filling R internal carotid artery M1 segment R MCA. Patient has been trying to see a vascular surgeon for endarterectomy but has faced insurance issues. EGD showed non bleeding esophageal ulcers and gastritis, biopsies taken. -Resumed aspirin and Plavix as GI approved -Pending echo read Patient was discussed with the Neurology attending, Dr. Garcia. Thank you for allowing us to participate in the care of this patient. Devika Vance, PGY-3 Attending Provider Attestation/Addendum I personally have seen and examined the patient at the bedside and agreed with resident's findings, assessment and plan of care. Will continue with the current management.
--- NOTE | 2025-05-06 18:30 | PD.IMPROG ---
Documentation for date of: 05/06/25 Subjective Subjective Interval history: Patient evaluated Hemoglobin hematocrit 9.5 and 28.0 Upper endoscopy showed distal esophageal ulcers GE junction ulcers and gastric ulcers Patel class III Exam Vital Signs Temp Pulse Resp BP Pulse Ox O2 Del Method O2 Flow Rate 97.7 F 88 16 110/59 L 97 Room Air 3 05/06/25 16:00 05/06/25 16:00 05/06/25 16:00 05/06/25 16:00 05/06/25 16:00 05/06/25 16:00 05/05/25 20:45 Objective Labs 05/06/25 05:14 05/06/25 05:14 Labs: Laboratory Results - last 24 hr 05/06/25 05:14 WBC 8.5 RBC 3.40 L Hgb 9.5 L Hct 28.0 L MCV 82 MCH 27.9 MCHC 33.9 RDW Std Deviation 47.4 H Plt Count 507 H D Neut % (Auto) 81 H Lymph % (Auto) 9 L [place] % (Auto) 8 Eos % (Auto) 1 Baso % (Auto) 0 Neut # (Auto) 6.9 Lymph # (Auto) 0.8 L [place] # (Auto) 0.7 Eos # (Auto) 0.1 Baso # (Auto) 0.0 Immature Gran # (Auto) 0.11 H Absolute Nucleated RBC 0.00 Immature Gran % 1 H Nucleated RBC % 0 Sodium 133 L Potassium 3.7 Chloride 99 Carbon Dioxide 25.8 Anion Gap 8 BUN 10 Creatinine 0.7 Estim Creat Clear Calc 75.6 eGFR > 60 BUN/Creatinine Ratio 14 Glucose 99 Calculated Osmolality 265 L Calcium 8.0 L Corrected Calcium 9.1 Phosphorus 2.8 Magnesium 1.9 Total Bilirubin 1.4 H D AST 68 H ALT 19 Alkaline Phosphatase 356 H D Total Protein 4.8 L Albumin 2.6 L Globulin 2.2 L Albumin/Globulin Ratio 1.2 Impressions Impression: GI bleed secondary to esophageal ulcers GE junction ulcers and gastric ulcer Continue to monitor CBC Continue Protonix Assessment & Plan A&P Narrative # Anemia blood loss requiring transfusion Recommend iron panel B12 folate level along with reticulocyte count Stool occult blood Obtain consent for fiberoptic esophagogastroduodenoscopy biopsy therapeutic intervention under intravenous moderate sedation If EGD is negative we will consider doing a fiberoptic colonoscopy prior to discharge Patient does take Plavix Other medical problems include Hyperlipidemia Seizure disorder on Keppra CVA with residual left sided deficit Multiple TIAs Peripheral arterial disease requiring stenting Thank you very much for the opportunity to participate in the care of this patient Time Spent With Patient Time: Total time spent is greater than 50% in coordination of care (as documented) at patient's floor/unit and/or counseling patient:
[2025-05-06] MEDS: AMITRIPTYLINE HCL 25 MG TABLET 50 MG PO (21:54)
[2025-05-06] MEDS: ATORVASTATIN CALCIUM 20 MG TABLET 80 MG PO (21:54)
[2025-05-06] MEDS: DULoxetine HCL 30 MG CAPSULE PO (21:54)
[2025-05-06] MEDS: INSULIN DEGLUDEC 5 UNIT/0.05 ML (PER 5 UNITS) 10 UNIT SC (21:55)
[2025-05-07] VITALS (8 sets, daily range): BP systolic 94–132; BP diastolic 64–79; PULSE 94–123; RESP 15–100; TEMP 36.3–36.8; O2SAT 94–99; BMI 16.2; BMI 13.0
[2025-05-07] MEDS: SUCRALFATE SUSP 1 GM/10 ML UDC PO ×4 (05:15→21:21)
[2025-05-07] MEDS: GABAPENTIN 300 MG CAPSULE PO ×3 (05:16→21:23)
[2025-05-07] MEDS: HYDROcodone/APAP 5/325 TABLET 1 TAB PO ×3 (05:16→19:32)
[2025-05-07 05:56] LABS: Basophils # (Auto) 0.0 Thou/mm3 (0.0-0.2); Basophils % (Auto) 0 % (0-2.5); Eosinophils # (Auto) 0.1 Thou/mm3 (0.0-0.5); Eosinophils % (Auto) 1 % (0-10); Hematocrit 26.8 % (41.0-53.0); Hemoglobin 8.9 g/dL (13.5-16.0); Immature Granulocytes Auto 0.10 Thou/mm3 (0.00-0.00); Lymphocytes # (Auto) 0.6 Thou/mm3 (1.0-4.8); Lymphocytes % (Auto) 8 % (10-50); Mean Corpuscular HGB Conc 33.2 g/dl (31.0-37.0); Mean Corpuscular Hemoglobin 27.7 pg (25.0-35.0); Mean Corpuscular Volume 84 fL (80-100); Monocytes # (Auto) 0.5 Thou/mm3 (0.0-0.8); Monocytes % (Auto) 7 % (0-12); Neutrophils # (Auto) 5.9 Thou/mm3 (1.8-7.7); Neutrophils % (Auto) 82 % (37-80); Nucleated Red Blood Cell # 0.00 Thou/mm3 (0.00-0.00); Nucleated Red Blood Cell % 0 /100 WBC (0); Platelet Count 451 Thou/mm3 (140-440); RDW Standard Deviation 49.3 fL (35.1-43.9); Red Blood Count 3.21 Miln/mm3 (4.50-5.90); White Blood Count 7.2 Thou/mm3 (3.8-10.6)
[2025-05-07 06:24] LABS: Alanine Aminotransferase 65 U/L (10-49); Albumin, Serum 2.5 gm/dL (3.4-4.8); Albumin/Globulin Ratio 1.4 (1.2-2.2); Alkaline Phosphatase 589 U/L (46-116); Anion Gap 8 (7-16); Aspartate Amino Transferase 174 U/L (0-34); BUN/Creatinine Ratio 13 Ratio (12-20); Bilirubin,Total 2.5 mg/dL (0.3-1.2); Blood Urea Nitrogen 10 mg/dL (9-23); Calcium 7.5 mg/dL (8.3-10.6); Calcium (Corrected) 8.7 mg/dL (8.5-10.1); Carbon Dioxide 25.0 mMol/L (20.0-31.0); Chloride 102 mMol/L (98-107); Creatinine (Component) 0.8 mg/dL (0.6-1.3); Estimated Creatinine Clearance 66.7 mL/min (>60); Globulin 1.8 gm/dL (2.3-3.5); Glucose 97 mg/dL (74-106); Magnesium 1.6 mg/dL (1.6-2.6); Osmolality,Calculated 269 (275-295); Phosphorous 2.9 mg/dL (2.4-5.1); Potassium 3.5 mMol/L (3.4-5.1); Sodium 135 mMol/L (136-145); Total Protein 4.3 gm/dL (5.7-8.2); eGFR > 60 See Note
--- NOTE | 2025-05-07 08:55 | PC.SS ---
SS was informed by Team A pt will most likey be ready to DC this later afternoon. SS reached out to Karly at [facility] to inquire if pt will require auth to return. Per Karly yes he would. SS sent updated clinicals to [employer] via [employer] to initiate auth. SS will remain available for any additional needs or concerns.
[2025-05-07] MEDS: ASPIRIN EC 81 MG TABEC PO (08:59)
[2025-05-07] MEDS: TAMSULOSIN HCL 0.4 MG CAPSULE PO (08:59)
[2025-05-07] MEDS: DOCUSATE SOD 100 MG CAPSULE PO (08:59)
[2025-05-07] MEDS: CLOPIDOGREL BISULFATE 75 MG TABLET PO (08:59)
[2025-05-07] MEDS: SODIUM CHLORIDE 0.9% 1000 ML 1,000 ML 100 ML IV ×2 (09:09→19:27)
[2025-05-07] MEDS: Artificial Tears 225 DROP/15 ML BTL LEFT EYE ×2 (10:33→19:35)
[2025-05-07 10:35] LABS: Sed Rate (ESR) 19 mm/hr (0-20)
[2025-05-07 10:53] LABS: C-Reactive Protein 15.7 mg/dL (0.0-0.9)
--- NOTE | 2025-05-07 12:34 | ESPR_ITS ---
<Statement entered by Sriram Julian MD - 05/07/25 14:38> Patient was examined and case was reviewed with team including attending physician. Note reviewed, I agree with most of its contents and agree with the patient's care as documented by Dr. Jeffery Patient seen today at the bedside found awake, alert, orientedx3. No overnight events reported. Vital signs and labs reviewed. He complains of left sided gnosticist pain. Denies trouble speaking, facial droop, dizziness, chest pain, shortness of breath, abdominal pain, nausea, vomiting, melena, hematochezia, or dark stools. No fevers or chills. ESR ordered and was within normal limits, low suspicion for giant cell arteritis. He endorses some blurry vision however this is not a new finding per the patient. Aspirin and plavix resumed as per gastroenterology recommendations. Case discussed with my attending Dr. Fawn Julian MD PGY-2 Documentation for date of: 05/07/25 Subjective Subjective Interval history: Patient seen and examined this morning. Denies new weakness or numbness. Reports left-sided temporal headache and states his left eye feels like it is ?shutting? with tunnel vision. Denies eye pain, redness, discharge, or complete vision loss though states had episodes of left eye turning white. Denies trouble speaking, facial droop, dizziness, chest pain, shortness of breath, abdominal pain, nausea, vomiting, melena, hematochezia, or dark stools. No fevers or chills. Reports daytime somnolence with morning Depakote dosing and requests medication to be given at night. Exam Vital Signs Temp Pulse Resp BP Pulse Ox O2 Del Method O2 Flow Rate 97.3 F 102 H 18 94/70 96 Room Air 3 05/07/25 08:00 05/07/25 09:15 05/07/25 08:00 05/07/25 09:15 05/07/25 08:00 05/07/25 08:00 05/05/25 20:45 Narrative Exam General: Awake, alert, no acute distress HEENT: Left temporal region with mild visible swelling compared to right. Left eye without conjunctival injection, discharge, crusting, or purulence; appears dry Cardiac: Regular rate and rhythm, no murmurs Pulmonary: Clear to auscultation bilaterally Abdomen: Soft, NT/ND, no RUQ tenderness, +BS Neurologic: Speech fluent, no aphasia or dysarthria, Facial symmetry intact, Strength 5/5 RUE/RLE, Chronic LLE weakness unchanged, Sensation intact. Extremities: No edema Objective Labs 05/08/25 05:50 05/07/25 05:15 Labs: Laboratory Results - last 24 hr 05/07/25 05/07/25 05/07/25 05:15 05:15 05:15 WBC 7.2 RBC 3.21 L Hgb 8.9 L Hct 26.8 L MCV 84 MCH 27.7 MCHC 33.2 RDW Std Deviation 49.3 H Plt Count 451 H D Neut % (Auto) 82 H Lymph % (Auto) 8 L [place] % (Auto) 7 Eos % (Auto) 1 Baso % (Auto) 0 Neut # (Auto) 5.9 Lymph # (Auto) 0.6 L [place] # (Auto) 0.5 Eos # (Auto) 0.1 Baso # (Auto) 0.0 Immature Gran # (Auto) 0.10 H Absolute Nucleated RBC 0.00 Immature Gran % 1 H Nucleated RBC % 0 ESR 19 Sodium 135 L Cancelled Potassium 3.5 Cancelled Chloride 102 Carbon Dioxide Anion Gap BUN Creatinine Estim Creat Clear Calc eGFR BUN/Creatinine Ratio Glucose Calculated Osmolality Calcium Corrected Calcium Phosphorus Magnesium Total Bilirubin AST ALT Alkaline Phosphatase C-Reactive Prot, Quant Total Protein Albumin Globulin Albumin/Globulin Ratio 05/07/25 05/07/25 05/07/25 05:15 05:15 05:15 WBC RBC Hgb Hct MCV MCH MCHC RDW Std Deviation Plt Count Neut % (Auto) Lymph % (Auto) [place] % (Auto) Eos % (Auto) Baso % (Auto) Neut # (Auto) Lymph # (Auto) [place] # (Auto) Eos # (Auto) Baso # (Auto) Immature Gran # (Auto) Absolute Nucleated RBC Immature Gran % Nucleated RBC % ESR Sodium Potassium Chloride Cancelled Carbon Dioxide 25.0 Cancelled Anion Gap 8 Cancelled BUN 10 Creatinine Estim Creat Clear Calc eGFR BUN/Creatinine Ratio Glucose Calculated Osmolality Calcium Corrected Calcium Phosphorus Magnesium Total Bilirubin AST ALT Alkaline Phosphatase C-Reactive Prot, Quant Total Protein Albumin Globulin Albumin/Globulin Ratio 05/07/25 05/07/25 05/07/25 05:15 05:15 05:15 WBC RBC Hgb Hct MCV MCH MCHC RDW Std Deviation Plt Count Neut % (Auto) Lymph % (Auto) [place] % (Auto) Eos % (Auto) Baso % (Auto) Neut # (Auto) Lymph # (Auto) [place] # (Auto) Eos # (Auto) Baso # (Auto) Immature Gran # (Auto) Absolute Nucleated RBC Immature Gran % Nucleated RBC % ESR Sodium Potassium Chloride Carbon Dioxide Anion Gap BUN Cancelled Creatinine 0.8 Cancelled Estim Creat Clear Calc 66.7 Cancelled eGFR > 60 BUN/Creatinine Ratio Glucose Calculated Osmolality Calcium Corrected Calcium Phosphorus Magnesium Total Bilirubin AST ALT Alkaline Phosphatase C-Reactive Prot, Quant Total Protein Albumin Globulin Albumin/Globulin Ratio 05/07/25 05/07/25 05/07/25 05:15 05:15 05:15 WBC RBC Hgb Hct MCV MCH MCHC RDW Std Deviation Plt Count Neut % (Auto) Lymph % (Auto) [place] % (Auto) Eos % (Auto) Baso % (Auto) Neut # (Auto) Lymph # (Auto) [place] # (Auto) Eos # (Auto) Baso # (Auto) Immature Gran # (Auto) Absolute Nucleated RBC Immature Gran % Nucleated RBC % ESR Sodium Potassium Chloride Carbon Dioxide Anion Gap BUN Creatinine Estim Creat Clear Calc eGFR Cancelled BUN/Creatinine Ratio 13 Cancelled Glucose 97 Cancelled Calculated Osmolality 269 L Calcium Corrected Calcium Phosphorus Magnesium Total Bilirubin AST ALT Alkaline Phosphatase C-Reactive Prot, Quant Total Protein Albumin Globulin Albumin/Globulin Ratio 05/07/25 05/07/25 05/07/25 05:15 05:15 05:15 WBC RBC Hgb Hct MCV MCH MCHC RDW Std Deviation Plt Count Neut % (Auto) Lymph % (Auto) [place] % (Auto) Eos % (Auto) Baso % (Auto) Neut # (Auto) Lymph # (Auto) [place] # (Auto) Eos # (Auto) Baso # (Auto) Immature Gran # (Auto) Absolute Nucleated RBC Immature Gran % Nucleated RBC % ESR Sodium Potassium Chloride Carbon Dioxide Anion Gap BUN Creatinine Estim Creat Clear Calc eGFR BUN/Creatinine Ratio Glucose Calculated Osmolality Cancelled Calcium 7.5 L Cancelled Corrected Calcium 8.7 Cancelled Phosphorus 2.9 Magnesium 1.6 Total Bilirubin 2.5 H D AST ALT Alkaline Phosphatase C-Reactive Prot, Quant Total Protein Albumin Globulin Albumin/Globulin Ratio 05/07/25 05/07/25 05/07/25 05:15 05:15 05:15 WBC RBC Hgb Hct MCV MCH MCHC RDW Std Deviation Plt Count Neut % (Auto) Lymph % (Auto) [place] % (Auto) Eos % (Auto) Baso % (Auto) Neut # (Auto) Lymph # (Auto) [place] # (Auto) Eos # (Auto) Baso # (Auto) Immature Gran # (Auto) Absolute Nucleated RBC Immature Gran % Nucleated RBC % ESR Sodium Potassium Chloride Carbon Dioxide Anion Gap BUN Creatinine Estim Creat Clear Calc eGFR BUN/Creatinine Ratio Glucose Calculated Osmolality Calcium Corrected Calcium Phosphorus Magnesium Total Bilirubin Cancelled AST 174 H Cancelled ALT 65 H Cancelled Alkaline Phosphatase 589 H D C-Reactive Prot, Quant Total Protein Albumin Globulin Albumin/Globulin Ratio 05/07/25 05/07/25 05/07/25 05:15 05:15 05:15 WBC RBC Hgb Hct MCV MCH MCHC RDW Std Deviation Plt Count Neut % (Auto) Lymph % (Auto) [place] % (Auto) Eos % (Auto) Baso % (Auto) Neut # (Auto) Lymph # (Auto) [place] # (Auto) Eos # (Auto) Baso # (Auto) Immature Gran # (Auto) Absolute Nucleated RBC Immature Gran % Nucleated RBC % ESR Sodium Potassium Chloride Carbon Dioxide Anion Gap BUN Creatinine Estim Creat Clear Calc eGFR BUN/Creatinine Ratio Glucose Calculated Osmolality Calcium Corrected Calcium Phosphorus Magnesium Total Bilirubin AST ALT Alkaline Phosphatase Cancelled C-Reactive Prot, Quant 15.7 H Total Protein 4.3 L Cancelled Albumin 2.5 L Cancelled Globulin 1.8 L Albumin/Globulin Ratio 05/07/25 05/07/25 05:15 05:15 WBC RBC Hgb Hct MCV MCH MCHC RDW Std Deviation Plt Count Neut % (Auto) Lymph % (Auto) [place] % (Auto) Eos % (Auto) Baso % (Auto) Neut # (Auto) Lymph # (Auto) [place] # (Auto) Eos # (Auto) Baso # (Auto) Immature Gran # (Auto) Absolute Nucleated RBC Immature Gran % Nucleated RBC % ESR Sodium Potassium Chloride Carbon Dioxide Anion Gap BUN Creatinine Estim Creat Clear Calc eGFR BUN/Creatinine Ratio Glucose Calculated Osmolality Calcium Corrected Calcium Phosphorus Magnesium Total Bilirubin AST ALT Alkaline Phosphatase C-Reactive Prot, Quant Total Protein Albumin Globulin Cancelled Albumin/Globulin Ratio 1.4 Cancelled Quality Measures Quality Measures VTE prophylaxis Advance care planning discussed with:: patient Assessment & Plan Assessment Current Active Medications: Generic Name Dose Route Start Last Admin Trade Name Joeq PRN Reason Stop Dose Admin Acetaminophen 325 mg 05/06/25 10:12 Acetaminophen 325 Mg Tablet PO 06/03/25 16:17 Q6H PRN Fever >100.4 or pain 1-3 Hydrocodone Bitart/Acetaminophen 1 tab 05/04/25 16:18 05/07/25 12:04 Hydrocodone/Apap 5/325 Tablet PO 05/09/25 16:17 1 tab Q6HR PRN Administration PAIN SCALE 4-6 (Moderate Amitriptyline HCl 50 mg 05/05/25 21:00 05/06/25 21:54 Amitriptyline Hcl 25 Mg Tablet PO 06/04/25 20:59 50 mg HS TOBY Administration Artificial Tears 0 drop 05/07/25 10:04 Artificial Tears 225 Drop/15 Ml Btl LEFT EYE 06/06/25 10:03 PRN PRN TO KEEP EYES MOIST Aspirin 81 mg 05/07/25 09:00 05/07/25 08:59 Aspirin Ec 81 Mg Tabec PO 06/06/25 08:59 81 mg QDAY TOBY Administration Atorvastatin Calcium 40 mg 05/07/25 21:00 Atorvastatin Calcium 20 Mg Tablet PO 06/06/25 20:59 HS TOBY Clopidogrel Bisulfate 75 mg 05/07/25 09:00 05/07/25 08:59 Clopidogrel Bisulfate 75 Mg Tablet PO 06/06/25 08:59 75 mg QDAY TOBY Administration Dextrose 25 ml 05/04/25 16:24 Dextrose 50%-Water Inj 50 Ml Syringe IV 06/03/25 16:23 Q15MIN PRN BG 50-70 responsive npo pt Dextrose 50 ml 05/04/25 16:24 Dextrose 50%-Water Inj 50 Ml Syringe IV 06/03/25 16:23 Q15MIN PRN BG <50 OR BG <70 & pt unresponsive Docusate Sodium 100 mg 05/05/25 09:00 05/07/25 08:59 Docusate Sod 100 Mg Capsule PO 06/04/25 08:59 100 mg QDAY TOBY Administration Protocol Duloxetine HCl 30 mg 05/05/25 21:00 05/06/25 21:54 Duloxetine Hcl 30 Mg Capsule PO 06/04/25 20:59 30 mg HS TOBY Administration Gabapentin 300 mg 05/05/25 06:00 05/07/25 05:16 Gabapentin 300 Mg Capsule PO 06/04/25 05:59 300 mg TID TOBY Administration Glucagon 1 mg 05/04/25 16:24 Glucagon Inj 1 Mg Vial IM Q15MIN PRN BG <70, and no IV access Sodium Chloride 1,000 mls @ 100 mls/hr 05/07/25 08:45 05/07/25 09:09 Ns IV 06/06/25 08:44 100 mls/hr .Q10H TOBY Administration Insulin Degludec 10 unit 05/04/25 21:00 05/06/25 21:55 Insulin Degludec 5 Unit/0.05 Ml (Per 5 Units) SC 06/03/25 20:59 10 unit HS TOBY Administration Insulin Human Lispro 0 unit 05/04/25 17:00 05/07/25 12:05 Insulin Lispro (Admelog) 1 Unit/0.01 Ml Unit SC 06/03/25 16:59 Not Given AC [facility] Protocol Levetiracetam 750 mg 05/07/25 21:00 Levetiracetam 250 Mg Tablet PO 06/06/25 20:59 HS [facility] Losartan Potassium 100 mg 05/05/25 09:00 05/07/25 09:15 Losartan Potassium 25 Mg Tablet PO 06/04/25 08:59 Not Given QDAY [facility] Morphine Sulfate 1 mg 05/04/25 16:18 05/06/25 18:08 Morphine Sulf Inj 4 Mg/Ml Vial IVP 05/09/25 16:17 1 mg Q4HR PRN Administration PAIN SCALE 7-10 (Severe Ondansetron HCl 4 mg 05/04/25 16:18 Ondansetron Inj 2 Mg/Ml Inj 2 Ml IVP 06/03/25 16:17 Q6H PRN NAUSEA OR VOMITING Protocol Pantoprazole Sodium 40 mg 05/07/25 21:00 Pantoprazole 40 Mg Tablet PO 06/06/25 20:59 BID [facility] Protocol Sucralfate 1 gm 05/05/25 21:00 05/07/25 12:03 Sucralfate Susp 1 Gm/10 Ml Udc PO 06/04/25 20:59 1 gm QID TOBY Administration Tamsulosin HCl 0.4 mg 05/05/25 09:00 05/07/25 08:59 Tamsulosin Hcl 0.4 Mg Capsule PO 06/04/25 08:59 0.4 mg QDAY TOBY Administration Tizanidine HCl 6 mg 05/05/25 00:54 05/05/25 01:08 Tizanidine Hcl 2 Mg Tablet PO 06/04/25 00:53 6 mg Q6HR PRN Administration Muscle Spasm Plan 65-year-old male with prior CVA, chronic right ICA occlusion on DAPT, type 2 diabetes, and hypertension, admitted for severe iron-deficiency anemia complicated by stroke recrudescence/TIA, now status post EGD showing non- bleeding ulcers, with left temporal headache, tunnel vision, and temporal swelling concerning for possible giant cell arteritis, but with normal ESR and elevated CRP. #Left Temporal Headache with Visual Disturbance #Concern for Giant Cell Arteritis? Patient with new left temporal headache, tunnel vision, and left temporal swelling on exam in the setting of age >50. ESR within normal limits; however, CRP elevated at 15.7, which does not exclude giant cell arteritis but makes it uncommon. Differential also includes complex migraine or vascular etiology. Plan: * Continue close clinical monitoring * Consider corticosteroids if symptoms worsen or vision changes progress * Follow up with neurology for further input. #Cholestatic Transaminitis Worsening cholestatic liver injury with rising Alk Phos, AST/ALT, and bilirubin. RUQ ultrasound shows gallbladder sludge and cholelithiasis without ductal dilation. Patient asymptomatic. Morning labs reveal normal AST 174, ALT 65, alk phos 589, and total bilirubin 2.5. Plan: * Trend LFTs daily * Atorvastatin reduced to 40 mg nightly * Started IV NS at 100 mL/hr * Avoid hepatotoxic medications * Consider MRCP if labs worsen # Acute Neurologic Deficit, CVA vs Recrudescence Overnight stroke alert for worsening left-sided weakness with new left-eye tunnel vision this morning. NIHSS 4. CT/CTA negative for acute hemorrhage or LVO; chronic right ICA occlusion present. Not a candidate for thrombolytics due to unclear last known well and active GI bleeding/anemia. Differential includes new ischemic CVA vs recrudescence of prior stroke. Echocardiogram reading showed EF 40-45% with negative bubble study Brain MRI showed: Multiple old infarcts and Lack of filling right internal carotid artery (similar to old imaging) Plan: * Neuro checks Q4H * Telemetry monitoring * Resumed ASA and Plavix per GI and neurology clearance * Continue high-intensity statin # Symptomatic anemia # Iron deficiency anemia Hgb 6.7 with tachycardia, conjunctival pallor, and positive FOBT. Iron 14, saturation 8%, albumin low, thrombocytosis consistent with iron deficiency. Likely chronic blood loss vs malabsorption. No evidence of acute hemorrhage. Hgb now improved to 8.7 after 2 units PRBC. Iron studies consistent with severe iron deficiency, FOBT positive, no overt bleeding. EGD showed non-bleeding esophageal ulcers with gastritis, biopsies obtained Plan: * Hold NSAIDs * PUD diet started * Started on Carafate 1g QID * Will start Iron supplementation on discharge * Monitor vitals and symptoms closely # Left upper extremity swelling/deformity The patient has chronic left arm deformity (prior injury) with pitting edema and recent fall-related pain. The ultrasound of the left arm was negative for DVT, but there are multiple lymph nodes near the clavicle. Plan: * Pain control * Outpatient follow-up CT soft tissue neck/chest with contrast to evaluate lymphadenopathy # Type 2 diabetes mellitus The patient has poorly controlled diabetes (glucose 256 on admission). He is on insulin Lantus 10 units nightly. He also takes Rybelsus and glipizide. Plan: * Continue home insulin degludec 10 units nightly * Sliding scale insulin ACHS * Continue home meds once med recs are completed # Hypertension # Chronic Right ICA Occlusion # History of CVA # Hyperlipidemia The patient has hypertension (currently on losartan 100 mg and amlodipine) Also severe carotid artery disease, chronic right ICA occlusion with history of CVA. DAPT currently held due to bleeding risk. He has a history of ischemic stroke (2021). Blood pressure is currently stable with medication. Plan: * Resumed aspirin and Plavix per GI and neuro reccs * Continue losartan 100 mg daily * Reduced atorvastatin to 40 mg nightly * Follow up Lipid panel in AM # Hypomagnesemia Mild hypomagnesemia (Mg 1.6). Plan: * Replete magnesium * Recheck level tomorrow # Chronic pain (left leg/hip) The patient has chronic left leg pain (prior fractures), worsened by movement. No surgical intervention for prior fractures. Significant discomfort limits mobility Plan: * Resume home Zenia PRN * Avoid NSAIDs * Physical therapy following Health Maintenance Disposition: Pending clinical stability and LFT trend Feeding: Carb consistent Thromboprophylaxis: SCD GI Prophylaxis: PPI BID Code Status: DNR/DNI confirmed with patient and POLST. ----- Plan discussed with attending physician Dr. Augustine and senior resident Dr. Ang Jeffery MD PGY-1 Internal Medicine Attending Provider Attestation/Addendum I, Fernanda Augustine DO, attest that I was physically present for the ferrer portions of the service and evaluated the patient with the resident and I reviewed and discussed the case with the resident and agree with the resident's findings and plans of care as documented above Patient seen eval this a.m. Patient states he is feeling tired with some left temporal discomfort. He does note to have some sinus pressure. He has been having some ongoing visual changes in his left eye with mild ptosis for over a month. There is mild tenderness to palpation of the left temporal region. There had been initial concern for possible temporal giant cell arteritis, but unlikely as ESR is noted to be 19 and within normal limits. Patient denies any jaw claudication was able to eat his breakfast this morning without issues. Patient did have a fall a few days prior to presentation however. Will follow- up with neurology recommendations otherwise. Patient has 4+ out of 5 muscle strength in all 4 extremities with gross sensation intact. No focal neurological deficits were noted on exam. Anticipate discharge in the next 24 hours if no further testing or interventions recommended by neurology.
[2025-05-07] MEDS: MAGNESIUM OXIDE 400 MG TABLET PO (13:52)
--- NOTE | 2025-05-07 17:23 | ESPR_ITS ---
Documentation for date of: 05/07/25 Subjective Subjective Interval history: Patient seen at bedside, reports feeling better. 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 He denies any new episodes of weakness, numbness, or speech difficulty. He does have left temporal soreness which he reports has been present for about a month. He reports blurry vision in the left and a medial side floater. Reviewed the scans and left side shows acute left maxillary sinusitis and postsurgical defect of the left mastoid air cells with fluid in the surgical defect but no masses. Since it appears the issue is more subacute/chronic recommend follow up with sales operations associate outpatient following discharge. Exam Vital Signs Temp Pulse Resp BP Pulse Ox O2 Del Method O2 Flow Rate 98.2 F 110 H 20 109/64 97 Room Air 3 05/07/25 16:00 05/07/25 16:00 05/07/25 16:00 05/07/25 16:00 05/07/25 16:00 05/07/25 16:00 05/05/25 20:45 Narrative Exam Physical Exam General: Awake and in no acute distress. Conversational and non-toxic appearing. HEENT: Normocephalic, atraumatic, mucous membranes moist. Soft tissue swelling of the left temporal forehead with tenderness Heart: Regular rate and rhythm, normal S1 and S2, no murmurs. Lungs: Clear to auscultation with no wheezing or crackles. Abdomen: Soft, nondistended, nontender, positive bowel sounds. ?No guarding or rebound tenderness. Neuro Stroke Exam: -Alert and oriented x3. -CN II-XII intact. -Normal visual bell. Visual acuity appears about equivalent on both eyes. -Normal fluent speech. -No facial droop. -Strength 5/5 bilateral arms, 5/5 hammer repairer strength. -Strength 5/5 right lower extremity, 3/5 left lower extremity due to chronic hip condition. -Intact sensation bilaterally. -Normal [id number], normal [id number] testing. Extremities: No edema. Skin: No rash or ecchymoses. Objective Labs 05/08/25 05:50 05/08/25 05:50 Labs: Laboratory Results - last 24 hr 05/07/25 05/07/25 05/07/25 05:15 05:15 05:15 WBC 7.2 RBC 3.21 L Hgb 8.9 L Hct 26.8 L MCV 84 MCH 27.7 MCHC 33.2 RDW Std Deviation 49.3 H Plt Count 451 H D Neut % (Auto) 82 H Lymph % (Auto) 8 L [place] % (Auto) 7 Eos % (Auto) 1 Baso % (Auto) 0 Neut # (Auto) 5.9 Lymph # (Auto) 0.6 L [place] # (Auto) 0.5 Eos # (Auto) 0.1 Baso # (Auto) 0.0 Immature Gran # (Auto) 0.10 H Absolute Nucleated RBC 0.00 Immature Gran % 1 H Nucleated RBC % 0 ESR 19 Sodium 135 L Cancelled Potassium 3.5 Cancelled Chloride 102 Carbon Dioxide Anion Gap BUN Creatinine Estim Creat Clear Calc eGFR BUN/Creatinine Ratio Glucose Calculated Osmolality Calcium Corrected Calcium Phosphorus Magnesium Total Bilirubin AST ALT Alkaline Phosphatase C-Reactive Prot, Quant Total Protein Albumin Globulin Albumin/Globulin Ratio 05/07/25 05/07/25 05/07/25 05:15 05:15 05:15 WBC RBC Hgb Hct MCV MCH MCHC RDW Std Deviation Plt Count Neut % (Auto) Lymph % (Auto) [place] % (Auto) Eos % (Auto) Baso % (Auto) Neut # (Auto) Lymph # (Auto) [place] # (Auto) Eos # (Auto) Baso # (Auto) Immature Gran # (Auto) Absolute Nucleated RBC Immature Gran % Nucleated RBC % ESR Sodium Potassium Chloride Cancelled Carbon Dioxide 25.0 Cancelled Anion Gap 8 Cancelled BUN 10 Creatinine Estim Creat Clear Calc eGFR BUN/Creatinine Ratio Glucose Calculated Osmolality Calcium Corrected Calcium Phosphorus Magnesium Total Bilirubin AST ALT Alkaline Phosphatase C-Reactive Prot, Quant Total Protein Albumin Globulin Albumin/Globulin Ratio 05/07/25 05/07/25 05/07/25 05:15 05:15 05:15 WBC RBC Hgb Hct MCV MCH MCHC RDW Std Deviation Plt Count Neut % (Auto) Lymph % (Auto) [place] % (Auto) Eos % (Auto) Baso % (Auto) Neut # (Auto) Lymph # (Auto) [place] # (Auto) Eos # (Auto) Baso # (Auto) Immature Gran # (Auto) Absolute Nucleated RBC Immature Gran % Nucleated RBC % ESR Sodium Potassium Chloride Carbon Dioxide Anion Gap BUN Cancelled Creatinine 0.8 Cancelled Estim Creat Clear Calc 66.7 Cancelled eGFR > 60 BUN/Creatinine Ratio Glucose Calculated Osmolality Calcium Corrected Calcium Phosphorus Magnesium Total Bilirubin AST ALT Alkaline Phosphatase C-Reactive Prot, Quant Total Protein Albumin Globulin Albumin/Globulin Ratio 05/07/25 05/07/25 05/07/25 05:15 05:15 05:15 WBC RBC Hgb Hct MCV MCH MCHC RDW Std Deviation Plt Count Neut % (Auto) Lymph % (Auto) [place] % (Auto) Eos % (Auto) Baso % (Auto) Neut # (Auto) Lymph # (Auto) [place] # (Auto) Eos # (Auto) Baso # (Auto) Immature Gran # (Auto) Absolute Nucleated RBC Immature Gran % Nucleated RBC % ESR Sodium Potassium Chloride Carbon Dioxide Anion Gap BUN Creatinine Estim Creat Clear Calc eGFR Cancelled BUN/Creatinine Ratio 13 Cancelled Glucose 97 Cancelled Calculated Osmolality 269 L Calcium Corrected Calcium Phosphorus Magnesium Total Bilirubin AST ALT Alkaline Phosphatase C-Reactive Prot, Quant Total Protein Albumin Globulin Albumin/Globulin Ratio 05/07/25 05/07/25 05/07/25 05:15 05:15 05:15 WBC RBC Hgb Hct MCV MCH MCHC RDW Std Deviation Plt Count Neut % (Auto) Lymph % (Auto) [place] % (Auto) Eos % (Auto) Baso % (Auto) Neut # (Auto) Lymph # (Auto) [place] # (Auto) Eos # (Auto) Baso # (Auto) Immature Gran # (Auto) Absolute Nucleated RBC Immature Gran % Nucleated RBC % ESR Sodium Potassium Chloride Carbon Dioxide Anion Gap BUN Creatinine Estim Creat Clear Calc eGFR BUN/Creatinine Ratio Glucose Calculated Osmolality Cancelled Calcium 7.5 L Cancelled Corrected Calcium 8.7 Cancelled Phosphorus 2.9 Magnesium 1.6 Total Bilirubin 2.5 H D AST ALT Alkaline Phosphatase C-Reactive Prot, Quant Total Protein Albumin Globulin Albumin/Globulin Ratio 05/07/25 05/07/25 05/07/25 05:15 05:15 05:15 WBC RBC Hgb Hct MCV MCH MCHC RDW Std Deviation Plt Count Neut % (Auto) Lymph % (Auto) [place] % (Auto) Eos % (Auto) Baso % (Auto) Neut # (Auto) Lymph # (Auto) [place] # (Auto) Eos # (Auto) Baso # (Auto) Immature Gran # (Auto) Absolute Nucleated RBC Immature Gran % Nucleated RBC % ESR Sodium Potassium Chloride Carbon Dioxide Anion Gap BUN Creatinine Estim Creat Clear Calc eGFR BUN/Creatinine Ratio Glucose Calculated Osmolality Calcium Corrected Calcium Phosphorus Magnesium Total Bilirubin Cancelled AST 174 H Cancelled ALT 65 H Cancelled Alkaline Phosphatase 589 H D C-Reactive Prot, Quant Total Protein Albumin Globulin Albumin/Globulin Ratio 05/07/25 05/07/25 05/07/25 05:15 05:15 05:15 WBC RBC Hgb Hct MCV MCH MCHC RDW Std Deviation Plt Count Neut % (Auto) Lymph % (Auto) [place] % (Auto) Eos % (Auto) Baso % (Auto) Neut # (Auto) Lymph # (Auto) [place] # (Auto) Eos # (Auto) Baso # (Auto) Immature Gran # (Auto) Absolute Nucleated RBC Immature Gran % Nucleated RBC % ESR Sodium Potassium Chloride Carbon Dioxide Anion Gap BUN Creatinine Estim Creat Clear Calc eGFR BUN/Creatinine Ratio Glucose Calculated Osmolality Calcium Corrected Calcium Phosphorus Magnesium Total Bilirubin AST ALT Alkaline Phosphatase Cancelled C-Reactive Prot, Quant 15.7 H Total Protein 4.3 L Cancelled Albumin 2.5 L Cancelled Globulin 1.8 L Albumin/Globulin Ratio 05/07/25 05/07/25 05:15 05:15 WBC RBC Hgb Hct MCV MCH MCHC RDW Std Deviation Plt Count Neut % (Auto) Lymph % (Auto) [place] % (Auto) Eos % (Auto) Baso % (Auto) Neut # (Auto) Lymph # (Auto) [place] # (Auto) Eos # (Auto) Baso # (Auto) Immature Gran # (Auto) Absolute Nucleated RBC Immature Gran % Nucleated RBC % ESR Sodium Potassium Chloride Carbon Dioxide Anion Gap BUN Creatinine Estim Creat Clear Calc eGFR BUN/Creatinine Ratio Glucose Calculated Osmolality Calcium Corrected Calcium Phosphorus Magnesium Total Bilirubin AST ALT Alkaline Phosphatase C-Reactive Prot, Quant Total Protein Albumin Globulin Cancelled Albumin/Globulin Ratio 1.4 Cancelled Quality Measures Quality Measures VTE prophylaxis Advance care planning discussed with:: patient Assessment & Plan Assessment Current Active Medications: Generic Name Dose Route Start Last Admin Trade Name Freq PRN Reason Stop Dose Admin Acetaminophen 325 mg 05/06/25 10:12 Acetaminophen 325 Mg Tablet PO 06/03/25 16:17 Q6H PRN Fever >100.4 or pain 1-3 Hydrocodone Bitart/Acetaminophen 1 tab 05/04/25 16:18 05/07/25 12:04 Hydrocodone/Apap 5/325 Tablet PO 05/09/25 16:17 1 tab Q6HR PRN Administration PAIN SCALE 4-6 (Moderate Amitriptyline HCl 50 mg 05/05/25 21:00 05/06/25 21:54 Amitriptyline Hcl 25 Mg Tablet PO 06/04/25 20:59 50 mg HS TOBY Administration Artificial Tears 0 drop 05/07/25 10:04 Artificial Tears 225 Drop/15 Ml Btl LEFT EYE 06/06/25 10:03 PRN PRN TO KEEP EYES MOIST Aspirin 81 mg 05/07/25 09:00 05/07/25 08:59 Aspirin Ec 81 Mg Tabec PO 06/06/25 08:59 81 mg QDAY TOBY Administration Atorvastatin Calcium 40 mg 05/07/25 21:00 Atorvastatin Calcium 20 Mg Tablet PO 06/06/25 20:59 HS TOBY Clopidogrel Bisulfate 75 mg 05/07/25 09:00 05/07/25 08:59 Clopidogrel Bisulfate 75 Mg Tablet PO 06/06/25 08:59 75 mg QDAY TOBY Administration Dextrose 25 ml 05/04/25 16:24 Dextrose 50%-Water Inj 50 Ml Syringe IV 06/03/25 16:23 Q15MIN PRN BG 50-70 responsive npo pt Dextrose 50 ml 05/04/25 16:24 Dextrose 50%-Water Inj 50 Ml Syringe IV 06/03/25 16:23 Q15MIN PRN BG <50 OR BG <70 & pt unresponsive Docusate Sodium 100 mg 05/05/25 09:00 05/07/25 08:59 Docusate Sod 100 Mg Capsule PO 06/04/25 08:59 100 mg QDAY TOBY Administration Protocol Duloxetine HCl 30 mg 05/05/25 21:00 05/06/25 21:54 Duloxetine Hcl 30 Mg Capsule PO 06/04/25 20:59 30 mg HS TOBY Administration Gabapentin 300 mg 05/05/25 06:00 05/07/25 13:52 Gabapentin 300 Mg Capsule PO 06/04/25 05:59 300 mg TID TOBY Administration Glucagon 1 mg 05/04/25 16:24 Glucagon Inj 1 Mg Vial IM Q15MIN PRN BG <70, and no IV access Sodium Chloride 1,000 mls @ 100 mls/hr 05/07/25 08:45 05/07/25 09:09 Ns IV 06/06/25 08:44 100 mls/hr .Q10H TOBY Administration Insulin Degludec 10 unit 05/04/25 21:00 05/06/25 21:55 Insulin Degludec 5 Unit/0.05 Ml (Per 5 Units) SC 06/03/25 20:59 10 unit HS [facility] Administration Insulin Human Lispro 0 unit 05/04/25 17:00 05/07/25 12:05 Insulin Lispro (Admelog) 1 Unit/0.01 Ml Unit SC 06/03/25 16:59 Not Given AC [facility] Protocol Levetiracetam 750 mg 05/07/25 21:00 Levetiracetam 250 Mg Tablet PO 06/06/25 20:59 HS [facility] Losartan Potassium 100 mg 05/05/25 09:00 05/07/25 09:15 Losartan Potassium 25 Mg Tablet PO 06/04/25 08:59 Not Given QDAY [facility] Morphine Sulfate 1 mg 05/04/25 16:18 05/06/25 18:08 Morphine Sulf Inj 4 Mg/Ml Vial IVP 05/09/25 16:17 1 mg Q4HR PRN Administration PAIN SCALE 7-10 (Severe Ondansetron HCl 4 mg 05/04/25 16:18 Ondansetron Inj 2 Mg/Ml Inj 2 Ml IVP 06/03/25 16:17 Q6H PRN NAUSEA OR VOMITING Protocol Pantoprazole Sodium 40 mg 05/07/25 21:00 Pantoprazole 40 Mg Tablet PO 06/06/25 20:59 BID [facility] Protocol Sucralfate 1 gm 05/05/25 21:00 05/07/25 12:03 Sucralfate Susp 1 Gm/10 Ml Udc PO 06/04/25 20:59 1 gm QID TOBY Administration Tamsulosin HCl 0.4 mg 05/05/25 09:00 05/07/25 08:59 Tamsulosin Hcl 0.4 Mg Capsule PO 06/04/25 08:59 0.4 mg QDAY [facility] Administration Tizanidine HCl 6 mg 05/05/25 00:54 05/05/25 01:08 Tizanidine Hcl 2 Mg Tablet PO 06/04/25 00:53 6 mg Q6HR PRN Administration Muscle Spasm Plan 65-year-old male with history of CVA without residual deficits, severe carotid atherosclerosis on DAPT, type 2 diabetes mellitus, hypertension, and hyperlipidemia, presenting from [facility] with severe symptomatic anemia (Hgb 6.7) found on routine labs, without overt signs of acute bleeding, neurology was consulted for stroke rule out. #Stroke recrudescence vs. complex migraine vs. TIA Patient had a stroke alert called the night after admission 05/05/2025 around 2:30 am due to left arm weakness and left facial numbness, which self resolved. MRI showed multiple old infarcts, and MRA showed lack of filling R internal carotid artery M1 segment R MCA. Patient has been trying to see a vascular surgeon for endarterectomy but has faced insurance issues. Echo showed negative bubble study, 40-45% EF, grade I diastolic dysfunction. EGD showed non bleeding esophageal ulcers and gastritis, biopsies taken. -Continue aspirin and Plavix -Follow up with Vascular Surgery regarding carotid enarterectomy -Follow up with Ophthalmology regarding left eye vision -Patient cleared for discharge from Neurology standpoint Patient was discussed with the Neurology attending, Dr. Garcia. Thank you for allowing us to participate in the care of this patient. Devika Vance, PGY-3 Attending Provider Attestation/Addendum I personally have seen and examined the patient at the bedside and agreed with resident's findings, assessment and plan of care. Will continue with the current management: DAPT and statin, fu with vascular for CEA. Patient cleared for discharge from Neurology standpoint
--- NOTE | 2025-05-07 17:59 | PD.IMPROG ---
Documentation for date of: 05/07/25 Subjective Subjective Interval history: Patient evaluated Hemoglobin hematocrit 8.9 and 26.8 somewhat downtrending Upper endoscopy has shown mid and distal esophageal ulceration and GE junction ulceration and gastric ulcer Patel class III Exam Vital Signs Temp Pulse Resp BP Pulse Ox O2 Del Method O2 Flow Rate 98.2 F 110 H 20 109/64 97 Room Air 3 05/07/25 16:00 05/07/25 16:00 05/07/25 16:00 05/07/25 16:00 05/07/25 16:00 05/07/25 16:00 05/05/25 20:45 Objective Labs 05/07/25 05:15 05/07/25 05:15 Labs: Laboratory Results - last 24 hr 05/07/25 05/07/25 05/07/25 05:15 05:15 05:15 WBC 7.2 RBC 3.21 L Hgb 8.9 L Hct 26.8 L MCV 84 MCH 27.7 MCHC 33.2 RDW Std Deviation 49.3 H Plt Count 451 H D Neut % (Auto) 82 H Lymph % (Auto) 8 L [place] % (Auto) 7 Eos % (Auto) 1 Baso % (Auto) 0 Neut # (Auto) 5.9 Lymph # (Auto) 0.6 L [place] # (Auto) 0.5 Eos # (Auto) 0.1 Baso # (Auto) 0.0 Immature Gran # (Auto) 0.10 H Absolute Nucleated RBC 0.00 Immature Gran % 1 H Nucleated RBC % 0 ESR 19 Sodium 135 L Cancelled Potassium 3.5 Cancelled Chloride 102 Carbon Dioxide Anion Gap BUN Creatinine Estim Creat Clear Calc eGFR BUN/Creatinine Ratio Glucose Calculated Osmolality Calcium Corrected Calcium Phosphorus Magnesium Total Bilirubin AST ALT Alkaline Phosphatase C-Reactive Prot, Quant Total Protein Albumin Globulin Albumin/Globulin Ratio 05/07/25 05/07/25 05/07/25 05:15 05:15 05:15 WBC RBC Hgb Hct MCV MCH MCHC RDW Std Deviation Plt Count Neut % (Auto) Lymph % (Auto) [place] % (Auto) Eos % (Auto) Baso % (Auto) Neut # (Auto) Lymph # (Auto) [place] # (Auto) Eos # (Auto) Baso # (Auto) Immature Gran # (Auto) Absolute Nucleated RBC Immature Gran % Nucleated RBC % ESR Sodium Potassium Chloride Cancelled Carbon Dioxide 25.0 Cancelled Anion Gap 8 Cancelled BUN 10 Creatinine Estim Creat Clear Calc eGFR BUN/Creatinine Ratio Glucose Calculated Osmolality Calcium Corrected Calcium Phosphorus Magnesium Total Bilirubin AST ALT Alkaline Phosphatase C-Reactive Prot, Quant Total Protein Albumin Globulin Albumin/Globulin Ratio 05/07/25 05/07/25 05/07/25 05:15 05:15 05:15 WBC RBC Hgb Hct MCV MCH MCHC RDW Std Deviation Plt Count Neut % (Auto) Lymph % (Auto) [place] % (Auto) Eos % (Auto) Baso % (Auto) Neut # (Auto) Lymph # (Auto) [place] # (Auto) Eos # (Auto) Baso # (Auto) Immature Gran # (Auto) Absolute Nucleated RBC Immature Gran % Nucleated RBC % ESR Sodium Potassium Chloride Carbon Dioxide Anion Gap BUN Cancelled Creatinine 0.8 Cancelled Estim Creat Clear Calc 66.7 Cancelled eGFR > 60 BUN/Creatinine Ratio Glucose Calculated Osmolality Calcium Corrected Calcium Phosphorus Magnesium Total Bilirubin AST ALT Alkaline Phosphatase C-Reactive Prot, Quant Total Protein Albumin Globulin Albumin/Globulin Ratio 05/07/25 05/07/25 05/07/25 05:15 05:15 05:15 WBC RBC Hgb Hct MCV MCH MCHC RDW Std Deviation Plt Count Neut % (Auto) Lymph % (Auto) [place] % (Auto) Eos % (Auto) Baso % (Auto) Neut # (Auto) Lymph # (Auto) [place] # (Auto) Eos # (Auto) Baso # (Auto) Immature Gran # (Auto) Absolute Nucleated RBC Immature Gran % Nucleated RBC % ESR Sodium Potassium Chloride Carbon Dioxide Anion Gap BUN Creatinine Estim Creat Clear Calc eGFR Cancelled BUN/Creatinine Ratio 13 Cancelled Glucose 97 Cancelled Calculated Osmolality 269 L Calcium Corrected Calcium Phosphorus Magnesium Total Bilirubin AST ALT Alkaline Phosphatase C-Reactive Prot, Quant Total Protein Albumin Globulin Albumin/Globulin Ratio 05/07/25 05/07/25 05/07/25 05:15 05:15 05:15 WBC RBC Hgb Hct MCV MCH MCHC RDW Std Deviation Plt Count Neut % (Auto) Lymph % (Auto) [place] % (Auto) Eos % (Auto) Baso % (Auto) Neut # (Auto) Lymph # (Auto) [place] # (Auto) Eos # (Auto) Baso # (Auto) Immature Gran # (Auto) Absolute Nucleated RBC Immature Gran % Nucleated RBC % ESR Sodium Potassium Chloride Carbon Dioxide Anion Gap BUN Creatinine Estim Creat Clear Calc eGFR BUN/Creatinine Ratio Glucose Calculated Osmolality Cancelled Calcium 7.5 L Cancelled Corrected Calcium 8.7 Cancelled Phosphorus 2.9 Magnesium 1.6 Total Bilirubin 2.5 H D AST ALT Alkaline Phosphatase C-Reactive Prot, Quant Total Protein Albumin Globulin Albumin/Globulin Ratio 05/07/25 05/07/25 05/07/25 05:15 05:15 05:15 WBC RBC Hgb Hct MCV MCH MCHC RDW Std Deviation Plt Count Neut % (Auto) Lymph % (Auto) [place] % (Auto) Eos % (Auto) Baso % (Auto) Neut # (Auto) Lymph # (Auto) [place] # (Auto) Eos # (Auto) Baso # (Auto) Immature Gran # (Auto) Absolute Nucleated RBC Immature Gran % Nucleated RBC % ESR Sodium Potassium Chloride Carbon Dioxide Anion Gap BUN Creatinine Estim Creat Clear Calc eGFR BUN/Creatinine Ratio Glucose Calculated Osmolality Calcium Corrected Calcium Phosphorus Magnesium Total Bilirubin Cancelled AST 174 H Cancelled ALT 65 H Cancelled Alkaline Phosphatase 589 H D C-Reactive Prot, Quant Total Protein Albumin Globulin Albumin/Globulin Ratio 05/07/25 05/07/25 05/07/25 05:15 05:15 05:15 WBC RBC Hgb Hct MCV MCH MCHC RDW Std Deviation Plt Count Neut % (Auto) Lymph % (Auto) [place] % (Auto) Eos % (Auto) Baso % (Auto) Neut # (Auto) Lymph # (Auto) [place] # (Auto) Eos # (Auto) Baso # (Auto) Immature Gran # (Auto) Absolute Nucleated RBC Immature Gran % Nucleated RBC % ESR Sodium Potassium Chloride Carbon Dioxide Anion Gap BUN Creatinine Estim Creat Clear Calc eGFR BUN/Creatinine Ratio Glucose Calculated Osmolality Calcium Corrected Calcium Phosphorus Magnesium Total Bilirubin AST ALT Alkaline Phosphatase Cancelled C-Reactive Prot, Quant 15.7 H Total Protein 4.3 L Cancelled Albumin 2.5 L Cancelled Globulin 1.8 L Albumin/Globulin Ratio 05/07/25 05/07/25 05:15 05:15 WBC RBC Hgb Hct MCV MCH MCHC RDW Std Deviation Plt Count Neut % (Auto) Lymph % (Auto) [place] % (Auto) Eos % (Auto) Baso % (Auto) Neut # (Auto) Lymph # (Auto) [place] # (Auto) Eos # (Auto) Baso # (Auto) Immature Gran # (Auto) Absolute Nucleated RBC Immature Gran % Nucleated RBC % ESR Sodium Potassium Chloride Carbon Dioxide Anion Gap BUN Creatinine Estim Creat Clear Calc eGFR BUN/Creatinine Ratio Glucose Calculated Osmolality Calcium Corrected Calcium Phosphorus Magnesium Total Bilirubin AST ALT Alkaline Phosphatase C-Reactive Prot, Quant Total Protein Albumin Globulin Cancelled Albumin/Globulin Ratio 1.4 Cancelled Impressions Impression: Distal esophageal ulcers Mid esophageal ulcers Patel class III gastric ulcer Continue current management Continue to monitor CBC Assessment & Plan A&P Narrative # Anemia blood loss requiring transfusion Recommend iron panel B12 folate level along with reticulocyte count Stool occult blood Obtain consent for fiberoptic esophagogastroduodenoscopy biopsy therapeutic intervention under intravenous moderate sedation If EGD is negative we will consider doing a fiberoptic colonoscopy prior to discharge Patient does take Plavix Other medical problems include Hyperlipidemia Seizure disorder on Keppra CVA with residual left sided deficit Multiple TIAs Peripheral arterial disease requiring stenting Thank you very much for the opportunity to participate in the care of this patient Time Spent With Patient Time: Total time spent is greater than 50% in coordination of care (as documented) at patient's floor/unit and/or counseling patient:
[2025-05-07] MEDS: ATORVASTATIN CALCIUM 20 MG TABLET 40 MG PO (21:22)
[2025-05-07] MEDS: PANTOPRAZOLE 40 MG TABLET PO (21:23)
[2025-05-07] MEDS: DULoxetine HCL 30 MG CAPSULE PO (21:23)
[2025-05-07] MEDS: INSULIN DEGLUDEC 5 UNIT/0.05 ML (PER 5 UNITS) 10 UNIT SC (21:24)
[2025-05-07] MEDS: AMITRIPTYLINE HCL 25 MG TABLET 50 MG PO (21:24)
[2025-05-07] MEDS: MORPHINE SULF INJ 4 MG/ML VIAL 1 MG IVP (23:01)
[2025-05-08] VITALS (7 sets, daily range): BP systolic 114–142; BP diastolic 69–83; PULSE 91–114; RESP 12–95; TEMP 36.4–37.2; O2SAT 95–98
[2025-05-08] MEDS: HYDROcodone/APAP 5/325 TABLET 1 TAB PO ×2 (01:40→11:24)
[2025-05-08] MEDS: MORPHINE SULF INJ 4 MG/ML VIAL 1 MG IVP ×2 (03:39→14:29)
[2025-05-08] MEDS: SUCRALFATE SUSP 1 GM/10 ML UDC PO ×3 (05:29→17:08)
[2025-05-08] MEDS: SODIUM CHLORIDE 0.9% 1000 ML 1,000 ML 100 ML IV (05:29)
[2025-05-08] MEDS: GABAPENTIN 300 MG CAPSULE PO ×2 (05:31→14:29)
[2025-05-08 06:35] LABS: Basophils # (Auto) 0.0 Thou/mm3 (0.0-0.2); Basophils % (Auto) 0 % (0-2.5); Eosinophils # (Auto) 0.1 Thou/mm3 (0.0-0.5); Eosinophils % (Auto) 1 % (0-10); Hematocrit 27.5 % (41.0-53.0); Hemoglobin 9.0 g/dL (13.5-16.0); Immature Granulocytes Auto 0.08 Thou/mm3 (0.00-0.00); Lymphocytes # (Auto) 0.9 Thou/mm3 (1.0-4.8); Lymphocytes % (Auto) 12 % (10-50); Mean Corpuscular HGB Conc 32.7 g/dl (31.0-37.0); Mean Corpuscular Hemoglobin 27.4 pg (25.0-35.0); Mean Corpuscular Volume 84 fL (80-100); Monocytes # (Auto) 0.6 Thou/mm3 (0.0-0.8); Monocytes % (Auto) 9 % (0-12); Neutrophils # (Auto) 5.4 Thou/mm3 (1.8-7.7); Neutrophils % (Auto) 76 % (37-80); Nucleated Red Blood Cell # 0.00 Thou/mm3 (0.00-0.00); Nucleated Red Blood Cell % 0 /100 WBC (0); Platelet Count 452 Thou/mm3 (140-440); RDW Standard Deviation 50.9 fL (35.1-43.9); Red Blood Count 3.28 Miln/mm3 (4.50-5.90); White Blood Count 7.1 Thou/mm3 (3.8-10.6)
[2025-05-08] MEDS: TAMSULOSIN HCL 0.4 MG CAPSULE PO (08:17)
[2025-05-08] MEDS: ASPIRIN EC 81 MG TABEC PO (08:17)
[2025-05-08] MEDS: CLOPIDOGREL BISULFATE 75 MG TABLET PO (08:18)
[2025-05-08] MEDS: LOSARTAN POTASSIUM 25 MG TABLET 100 MG PO (08:18)
[2025-05-08] MEDS: PANTOPRAZOLE 40 MG TABLET PO (08:18)
[2025-05-08] MEDS: DOCUSATE SOD 100 MG CAPSULE PO (08:18)
[2025-05-08 08:39] LABS: Alanine Aminotransferase 71 U/L (10-49); Albumin, Serum 2.5 gm/dL (3.4-4.8); Albumin/Globulin Ratio 1.3 (1.2-2.2); Alkaline Phosphatase 582 U/L (46-116); Anion Gap 11 (7-16); Aspartate Amino Transferase 143 U/L (0-34); BUN/Creatinine Ratio 13 Ratio (12-20); Bilirubin,Total 2.8 mg/dL (0.3-1.2); Blood Urea Nitrogen 9 mg/dL (9-23); Calcium 7.5 mg/dL (8.3-10.6); Calcium (Corrected) 8.7 mg/dL (8.5-10.1); Carbon Dioxide 23.7 mMol/L (20.0-31.0); Chloride 104 mMol/L (98-107); Creatinine (Component) 0.7 mg/dL (0.6-1.3); Estimated Creatinine Clearance 77.8 mL/min (>60); Globulin 1.9 gm/dL (2.3-3.5); Glucose 56 mg/dL (74-106); Magnesium 1.6 mg/dL (1.6-2.6); Osmolality,Calculated 274 (275-295); Phosphorous 2.5 mg/dL (2.4-5.1); Potassium 3.7 mMol/L (3.4-5.1); Sodium 139 mMol/L (136-145); Total Protein 4.4 gm/dL (5.7-8.2); eGFR > 60 See Note
--- NOTE | 2025-05-08 10:09 | XR_ITS ---
Examination: Abdomen sonogram, Limited Date and time of exam: May 08, 2025, 1041 hours INDICATIONS: Increasing liver function tests on laboratory examination today Technique: Real-time caldwell scale transabdominal sonographic images of the upper abdomen obtained. Findings: Gallbladder sludge Gallstones Gallbladder wall 0.3 cm Common bile duct enlarged 0.7 cm no stones Pancreatic head 3.1 cm Liver 15.6 cm with free fluid around the liver Normal hepatopetal portal venous flow Patent IVC IMPRESSION: Cholelithiasis, gallbladder sludge Gallbladder wall is not thickened Enlarged common bile duct 0.7 cm no definite stones, if biliary colic is a clinical consideration, suggest MRCP follow-up
--- NOTE | 2025-05-08 13:30 | ESDS_ITS ---
<Statement entered by Fernanda Augustine DO - 05/08/25 14:00> I, Fernanda Augustine DO, attest that I was physically present for the ferrer portions of the service and evaluated the patient with the resident and I reviewed and discussed the case with the resident and agree with the resident's findings and plans of care as documented above Planned Discharge Date 05/08/25 DS: Providers Provider Date of admission: 05/04/25 16:18 Primary care physician: LORRIE De Souza Admitting Provider: Alcira Sommer MD Attending Provider on Admission: Alcira Sommer MD Consults: 05/04/25 15:32 Consult to Gastroenterology Stat Comment: GI bleed Consulting Provider: Marivel Coronado 05/04/25 16:25 Referral Registered Dietitian Routine Comment: 05/04/25 17:51 PT [Referral Physical Therapy] Routine Comment: Physician Instructions: 05/05/25 02:37 Consult to Neurology / Tele-Neurology Stat Comment: Consulting Provider: [facility] 05/05/25 10:20 Consult to Neurology / Tele-Neurology Routine Comment: Consulting Provider: Jaiden Garcia Attending Provider on DC: Fernanda Augustine DO Discharging Provider: Ej Jeffery MD DS: Diagnosis Problem List Completed Was Problem List Reviewed/Reconciled?: Yes Hospital Course Hospital Course Hospital course: 65-year-old male with a history of prior cerebrovascular accident without residual deficits, chronic right internal carotid artery occlusion on dual antiplatelet therapy, type 2 diabetes mellitus, hypertension, hyperlipidemia, and seizure disorder, who presented from [facility] after routine labs revealed severe anemia (Hgb 6.7). On admission, the patient denied overt bleeding, including melena, hematochezia, hematemesis, or hematuria. He was admitted for evaluation of symptomatic anemia and received 2 units of packed red blood cells with appropriate hemoglobin response and clinical improvement. Iron studies were consistent with severe iron deficiency anemia, and FOBT was positive. Gastroenterology was consulted, and the patient underwent EGD on 05/05/2025, which revealed non-bleeding esophageal ulcers, gastritis, and non-bleeding gastric ulcers with clean bases. No colonoscopy was performed during this admission. He was started on PPI therapy and Carafate, placed on a peptic ulcer disease diet, and NSAIDs were avoided. His hemoglobin remained stable thereafter. During hospitalization, the patient experienced a stroke alert due to transient left-sided weakness, facial numbness, and visual symptoms. CT head and CTA head/neck were negative for acute infarct or large vessel occlusion but demonstrated chronic right ICA occlusion. MRI brain showed multiple old infarcts without evidence of acute stroke. Neurology evaluated the patient and felt symptoms were most consistent with stroke recrudescence vs TIA vs complex migraine. Echocardiogram demonstrated EF 40?45% with negative bubble study. Dual antiplatelet therapy was initially held due to GI bleeding risk but later resumed after GI clearance. The patient later developed left temporal headache, tunnel vision, and mild temporal swelling, raising concern for possible giant cell arteritis. ESR was within normal limits, CRP was mildly elevated. Given improving symptoms, lack of progression, and neuro recs the patient was monitored closely without initiation of steroids. His hospital course was also notable for cholestatic transaminitis with rising alkaline phosphatase and bilirubin. Right upper quadrant ultrasound (including repeat imaging) demonstrated gallbladder sludge and cholelithiasis without common bile duct dilation or obstruction. The patient remained asymptomatic. Atorvastatin dose was reduced, IV fluids were administered, and liver enzymes began to trend down slowly. Gastroenterology was re-contacted and agreed patient was safe for discharge with close outpatient follow-up. Blood sugars were monitored throughout hospitalization. Long-acting insulin was held on the day of discharge due to low serum glucose with normal bedside values. Depakote dosing was changed to nightly due to daytime somnolence. The patient remained clinically stable and was deemed appropriate for discharge back to [facility]. 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 #Left Temporal Headache with Visual Disturbance #Concern for Giant Cell Arteritis, ruled out #Esophageal Ulcers #Cholestatic Transaminitis # Symptomatic anemia # Iron deficiency anemia # Left upper extremity swelling/deformity # Type 2 diabetes mellitus # Hypertension # Chronic Right ICA Occlusion # History of CVA # Hyperlipidemia # Hypomagnesemia # Chronic pain (left leg/hip) Discharge Instructions: -Follow up with primary care physician within 1 week of discharge -Follow up with Vascular Surgery regarding carotid enarterectomy -Follow up with Ophthalmology regarding left eye vision Instructions have been explained to the patient with regards to their medications and how to take them. Patient was able to explain back to physician and nursing staff how to take their medications. Patient expressed understanding with instructions. New Medications: Ferrous sulfate 325mg every other day Continue aspirin and Plavix Continue to take the rest of your medications as prescribed by your primary care physician. Patient has been explained that should any symptoms recur or worsen patient is instructed to return to the Emergency Department. ----- Plan discussed with attending physician Dr. Fawn Jeffery MD PGY-1 Internal Medicine Time Spent with Patient Time attestation: Total time spent providing and/or coordinating discharge services: Time spent: Greater than 30 minutes Exam Vital Signs Temp Pulse Resp BP Pulse Ox O2 Del Method O2 Flow Rate 98.2 F 92 17 119/81 98 Room Air 3 05/08/25 12:05/08/25 12:05/08/25 12:00 05/08/25 12:00 05/08/25 12:05/08/25 12:05/05/25 20:45 Narrative Exam General: Awake, alert, no acute distress HEENT: Left temporal region with mild visible swelling compared to right. Left eye without conjunctival injection, discharge, crusting, or purulence; appears dry Cardiac: Regular rate and rhythm, no murmurs Pulmonary: Clear to auscultation bilaterally Abdomen: Soft, NT/ND, no RUQ tenderness, +BS Neurologic: Speech fluent, no aphasia or dysarthria, Facial symmetry intact, Strength 5/5 RUE/RLE, Chronic LLE weakness unchanged, Sensation intact. Extremities: No edema Discharge Plan Plan Patient Disposition: Xfer Skilled [facility] (SNF) Patient condition on transfer: Stable Care Plan Goals: -Follow up with primary care physician within 1 week of discharge -Follow up with Vascular Surgery regarding carotid enarterectomy -Follow up with Ophthalmology regarding left eye vision -Follow up with liver function test outpatient. Instructions have been explained to the patient with regards to their medications and how to take them. Patient was able to explain back to physician and nursing staff how to take their medications. Patient expressed understanding with instructions. New Medications: Ferrous sulfate 325mg every other day Continue aspirin and Plavix Continue to take the rest of your medications as prescribed by your primary care physician. Patient has been explained that should any symptoms recur or worsen patient is instructed to return to the Emergency Department. Prescriptions/Referrals Prescriptions/Med Rec: New ferrous sulfate 325 mg (65 mg iron) tablet 325 mg PO Q OTHER DAY 30 Days Qty: 15 0RF Continued amitriptyline 50 mg Tablet 50 mg PO HS Qty: 0 metformin 500 mg Tablet 1,000 mg PO QDAY Qty: 0 levetiracetam [Keppra] 500 MG tablet 750 mg PO QDAY Qty: 0 hydrocodone-acetaminophen 10-325 mg Tablet 1 tab PO Q6HR PRN (Reason: Pain (Scale Score 7-10)) Qty: 0 0RF losartan 100 mg Tablet 100 mg PO QDAY glipizide 5 mg Tablet 5 mg PO BID duloxetine 30 mg Capsule,Delayed Release(Dr/Ec) 30 mg PO HS tizanidine 4 mg Tablet 6 mg PO Q6HR PRN (Reason: Muscle Spasm) gabapentin 300 mg Capsule 300 mg PO TID aspirin 81 mg Tablet,Delayed Release (Dr/Ec) 81 mg PO QDAY Qty: 30 3RF clopidogrel 75 mg tablet 75 mg PO QDAY Qty: 30 1RF Discontinued clopidogrel 75 mg Tablet 75 mg PO QDAY Referrals: Kierra Alejandre FNP [Primary Care Provider] Patient/Caregiver Discharge Instructions Print Language: Cook Islander Stand Alone Forms: Radha Award Info., Patient Portal Info Letter Discharge Order Discharge Orders: Discharge (Routine); Ordered 05/08/25 Ordered By: Candida Manning Quality Discharge Quality Measures VTE prophylaxis
--- NOTE | 2025-05-08 13:34 | PC.SS ---
Addendum entered by Amelie Moncada 05/08/25 14:47: KATHIE obtained, transportation scheduled for 1729 with Flavia [facility]CC[facility] [phone]. TARIQ Garcia and Karly [facility] informed of ETA 1729. Attempted to leave message to Francois Wiggins [phone]. SS contacted [facility] [phone] to inquire about transportation eligibility and she stated their department is unable to activate it at this time. Last time it was used and active was 2019. Ami advised to call back during business hours to reactivate. Original Note: SS contacted [employer] [phone] and informed patient's transportation is inactive. Informed by Dr. Jeffery patient can return to [facility]. [facility] and [facility] stated [facility] and can accept patient today. SS informed TARIQ Garcia and transportation will be arranged, ETA pending.
--- NOTE | 2025-05-08 15:47 | PC.NURSE ---
Report called to SNF nurse patel at [facility]. discharge instructions to be sent upon transfer. cook pickled meat time scheduled for [id number]
== END 2025-05-08 17:35 | disposition skilled nursing facility (03) | DRG 381 ==
LOC: SERX 11:09 → SERHOLD 16:36 → S2NX 19:59
PROVIDERS: Specialist; Admitting Provider Internal Medicine; PCP Nurse Practitioner Family; Visit Provider Internal Medicine
PROC: 0DB48ZX Excision of Esophagogastric Junction, Via Natural or Artificial Opening Endoscopic, Diagnostic (ICD-10-PCS; CPT 43239; principal; 2025-05-05 13:30)
DX: K22.11 Ulcer of esophagus with bleeding (principal); D62 Acute posthemorrhagic anemia; I69.354 Hemiplegia and hemiparesis following cerebral infarction affecting left non-dominant side; K25.4 Chronic or unspecified gastric ulcer with hemorrhage; K29.71 Gastritis, unspecified, with bleeding; D50.9 Iron deficiency anemia, unspecified; I10 Essential (primary) hypertension; E78.5 Hyperlipidemia, unspecified; G40.909 Epilepsy, unspecified, not intractable, without status epilepticus; G89.29 Other chronic pain; E11.65 Type 2 diabetes mellitus with hyperglycemia; G93.89 Other specified disorders of brain; M79.605 Pain in left leg; D75.839 Thrombocytosis, unspecified; K80.20 Calculus of gallbladder without cholecystitis without obstruction; E11.51 Type 2 diabetes mellitus with diabetic peripheral angiopathy without gangrene; F17.210 Nicotine dependence, cigarettes, uncomplicated; M21.922 Unspecified acquired deformity of left upper arm; Z79.4 Long term (current) use of insulin; J01.00 Acute maxillary sinusitis, unspecified; K82.8 Other specified diseases of gallbladder; Z66 Do not resuscitate; I65.21 Occlusion and stenosis of right carotid artery; Z79.02 Long term (current) use of antithrombotics/antiplatelets; Z79.82 Long term (current) use of aspirin; R74.01 Elevation of levels of liver transaminase levels; E83.42 Hypomagnesemia; R60.9 Edema, unspecified; Z79.84 Long term (current) use of oral hypoglycemic drugs; Z79.899 Other long term (current) drug therapy; W19.XXXA Unspecified fall, initial encounter; M79.89 Other specified soft tissue disorders
CPT/HCPCS: 36415; 70450; 70496; 70498; 70544; 76705; 80053; 80061; 82607; 82728; 83036; 83540; 83550; 83605; 83615; 83735; 84100; 84443; 84484; 85014; 85018; 85025; 85046; 85610; 85652; 85730; 86140; 86850; 86900; 86901; 86923; 87081; 93005; 93306; 93971; 94762; 96360; 97162; 99284; A4649; J1815; J2270; J2470; J3475; J7030; J7120; J7999; P9016; Q9967; A9270

== ENCOUNTER 2025-05-18 15:35 | Emergency (ER) | payer MEDICARE, MEDICAID, SELFPAY ==
--- NOTE | 2025-05-18 15:49 | EKG_ITS ---
[facility] Test Date: 2025-05-18 Pat Name: SHEREEN BUENO Department: Room: - Gender: Male Full Stack Php Developer: : 1960 Requested By: Levon Chang Order Number: [id number] Reading MD: Levon Chang Measurements Intervals [place] Rate: 91 P: 69 KS: 134 QRS: 53 QRSD: 95 T: 92 QT: 381 QTc: 470 Interpretive Statements SINUS RHYTHM NONSPECIFIC T-WAVE ABNORMALITY Compared to ECG 05/05/2025 03:36:23 No significant changes /store/S0/[id number].pdf
--- NOTE | 2025-05-18 15:49 | XR_ITS ---
Examination: CT maxillofacial, with contrast 2-D sagittal and coronal reconstructions. 3-D reconstructions Date and time of exam: May 18, 2025, 1859 hours INDICATIONS: Periorbital cellulitis left eye infection beginning 1 week ago CTDI: vol (mGy): 14.2 DLP: (mGycm): 280 Technique: Multiple axial images maxillofacial region, 3.0 mm slice thickness, post intravenous injection 50 cc Isovue 370. 2-D sagittal coronal reconstructions. 3-D reconstructions Low dose protocols were performed. One or more of the following dose reduction techniques were used; automated exposure control, adjustment of the mA and/or KV according to patient size, use of iterative reconstruction technique. Findings: The optic globes appear intact The ophthalmic musculature in the lateral and superior retro-orbital region is thickened, axial image 83, coronal image 38 worrisome for serious early infection in the left retro-orbital region Clinical correlation advised Optic nerves are intact Orbital rims are intact, no cortical bone destruction IMPRESSION: The ophthalmic musculature/soft tissue in the lateral and superior left retro-orbital region is significantly thickened, worrisome for serious infection in left retro-orbital region
--- NOTE | 2025-05-18 15:50 | PD.EDADULT ---
ED General RME/HPI General Chief complaint: General Adult/Misc Complain Stated complaint: INFECTION Time Seen by Provider: 05/18/25 15:48 Arrival date/time: 05/18/25 15:35 CC: Left facial edema HPI patient sent to the ER via EMS from [facility] care facility after taking antibiotics for 4 to 5 days for sinus infection and the patient has now developed swelling around the left eye left anglican and left face. Patient is also complaining of periorbital pain. EMS deny fever. Related Data Home Medications ?Medication ?Instructions ?Recorded ?Confirmed amitriptyline 50 mg tablet 50 mg PO HS #0 tabs 07/16/14 05/05/25 metformin 500 mg tablet 1,000 mg PO QDAY ##0 07/16/14 05/05/25 levetiracetam 500 mg tablet 750 mg PO QDAY #0 tabs 12/28/14 05/05/25 (Keppra) duloxetine 30 mg capsule,delayed 30 mg PO HS 08/03/22 05/05/25 release gabapentin 300 mg capsule 300 mg PO TID 08/03/22 05/05/25 glipizide 5 mg tablet 5 mg PO BID 08/03/22 05/05/25 losartan 100 mg tablet 100 mg PO QDAY 08/03/22 05/05/25 tizanidine 4 mg tablet 6 mg PO Q6HR PRN Muscle Spasm 08/03/22 05/05/25 Previous Rx's ?Medication ?Instructions ?Recorded hydrocodone 10 mg-acetaminophen 1 tab PO Q6HR PRN Pain (Scale 01/04/20 325 mg tablet Score 7-10) #0 tabs aspirin 81 mg tablet,delayed 81 mg PO QDAY #30 tabs 08/06/22 release clopidogrel 75 mg tablet 75 mg PO QDAY #30 tabs 01/03/23 ferrous sulfate 325 mg (65 mg 325 mg PO Q OTHER DAY 1 month #15 05/04/25 iron) tablet tabs Allergies Allergy/AdvReac Type Severity Reaction Status Date / Time adhesive tape Allergy Severe Rash Verified 05/04/25 08:43 Review of Systems Review of Systems Narrative Review of Systems: GEN: No fever, no chills, no weight loss EYES: No discharge, no visual changes, no pain HEENT: No ear pain, no congestion, no sore throat PULM: No shortness of breath, no cough, no congestion CV: No chest pain, no dyspnea on exertion, no palpitations GI: No nausea, no vomiting, no diarrhea, no pain, no constipation : No frequency, no urgency, no dysuria MUSC/SKEL: No joint pain, no back pain SKIN: No rash PSYCH: No hallucinations, no depression HEME/LYMPH: No easy bleeding or bruising tendencies NEURO: No weakness, no headache Past Medical History Past Medical History NEUROLOGIC: Positive Neurological Disorders, Cerebrovascular Accident (3 yrs ago), Transient Ischemic Attacks (TIA) (right carotid artery completely blocked and left carotid 70%) and Seizures CARDIAC: Positive Hypercholesterolemia and Hypertension; Negative Cardiac Disorders or Congestive Heart Failure RESPIRATORY: Negative Chronic Obstructive Pulmonary Disease (COPD) or Asthma GASTROINTESTINAL: Positive Gastrointestinal Disorders and Gastroesophageal Reflux Disease GENITOURINARY: Positive Genitourinary Disorders and Kidney Stones; Negative Renal Disease MUSCULOSKELETAL: Positive Musculoskeletal Disorders and Arthritis ENT: Positive Cataracts and Deafness ENDOCRINE: Positive Endocrine Disorders and Diabetes Mellitus Type 2; Negative Diabetes Mellitus Type 1 HEMATOLOGIC: Negative Blood Disorders or Sickle Cell Disease OTHER HISTORY: Positive Chicken Pox, Measles, Mumps and Rubella (Amharic Measles); Negative Blood Transfusions, Blood Transfusion Reaction, Anesthesia Reactions or Cancer Family History FAMILY HISTORY: Positive Family Respiratory Disorders (mom copd dad emphysema), Family Cancer (sister malenoma) and Family Surgery; Negative Family Psychiatric Problems, Family Cardiac Disorders, Family Gastrointestinal Problems or Family Anesthesia Reaction Surgical History SURGICAL: Positive Nose Surgery Social History SMOKING STATUS: Light (< 1 pack/day) SECOND HAND EXPOSURE: No ED Exam Narrative Physical exam: [General: Moderate discomfort but not in any acute distress Head normocephalic HEENT: Face: Patient has left facial edema no erythema not warm to touch, bulging at the anglican, also upper lid is edematous creating ptosis. Facial asymmetry is subtle secondary to left-sided facial edema. No right sided ptosis. Smile is symmetrical swallow was symmetrical phonation is normal. All of the subsystems of HEENT are within acceptable limits Neck is supple nontender Chest equal chest rise nontender to palpation Respiratory: Clear to auscultation no wheezes crackles or rubs CV: Rate rhythm is regular no murmurs rubs or clicks Abdomen is soft nontender no masses positive bowel sounds all 4 quadrants Back: No CVA tenderness no spinous process tenderness from cervical spine thoracic and lumbar spine Skin: Intact no petechiae rash induration ulceration or crepitus Extremities: Moving all extremity against resistance cap refill less than 2 seconds neurosensory intact Neuro: Awake alert oriented x3 Glascow coma 15 no focal deficits] Course Course Course Narrative: Review the laboratory results of the patient has an elevated lactic of 3, and procalcitonin is elevated 0.5 this time initiated sepsis protocol. I received a call from the radiologist Dr Marquez stating the patient has left-sided orbital cellulitis. At this time initiate transfer for OMF. Patient states he wants the DNR changed he wants everything done. Patient's case discussed with Dr. Pa, ophthalmology at [facility] who stated the patient was a challenging case and was concern for myositis likely secondary to a new cancer or a paraneoplastic infiltrate disease. He is recommending oculoplastics and suggest the patient be transferred to an academic center such as [facility] he recommends the patient stays on broad-spectrum antibiotics and if available to get an MRI with contrast. Quality Measures none Orders Category Date Time Status CT Screening NOW Care 05/18/25 15:49 Completed Power Nut Runner Operator STAT Care 05/18/25 17:49 Completed Continuous Pulse Oximetry STAT Care 05/18/25 17:49 Completed EKG (ED ONLY) *Do not use* NOW Care 05/18/25 15:49 Completed In and Out Catheter X1PRN Care 05/18/25 17:49 Completed Insert IV NOW Care 05/18/25 17:49 Completed MRI Screening NOW Care 05/18/25 22:57 Completed NPO STAT Care 05/18/25 17:49 Completed Strict Intake and Output Routine Care 05/18/25 17:[address] facial bones w con Stat Exams 05/18/25 15:49 Completed EKG (ED Only) Stat Exams 05/18/25 15:49 Draft XR chest 1V SEPSIS PROTOCOL Stat Exams 05/18/25 17:50 Completed B-Type Natriuretic Peptide Stat Lab 05/18/25 16:29 Completed Blood Culture (Lab) Stat Lab 05/18/25 18:14 Received CBC Stat Lab 05/18/25 16:29 Completed CRP [C-Reactive Protein] Stat Lab 05/18/25 16:29 Completed Comprehensive Metabolic Panel Stat Lab 05/18/25 16:29 Completed Drug Screen,Urine Stat Lab 05/18/25 19:00 Completed ESR [Sed Rate (ESR)] Stat Lab 05/18/25 16:29 Completed LDH (Lactate Dehydrogenase) Stat Lab 05/18/25 16:29 Completed Lactic Acid [Lactate (Lactic Acid)] Stat Lab 05/18/25 16:29 Completed Lactic Acid, 3 HR Stat Lab 05/18/25 20:05 Completed Lipase Stat Lab 05/18/25 16:29 Completed Magnesium Stat Lab 05/18/25 16:29 Completed Partial Thromboplastin Time Stat Lab 05/18/25 16:29 Completed Phosphorous Stat Lab 05/18/25 16:29 Completed Procalcitonin Stat Lab 05/18/25 16:29 Completed Prothrombin Time with INR Stat Lab 05/18/25 16:29 Completed Troponin I Stat Lab 05/18/25 16:29 Completed Urinalysis, C/S if Indicated Stat Lab 05/18/25 19:00 Completed Morphine* Inj Med 05/18/25 20:14 Discontinued 4 mg IVP X1 ONE Morphine* Inj Med 05/19/25 01:29 Discontinued 4 mg IVP X1 ONE Ondansetron Inj [Zofran Inj] Med 05/18/25 20:14 Discontinued 4 mg IVP X1 ONE Piper/Tazo 3.375 gm Premix [Zosyn] Med 05/18/25 17:49 Discontinued 3.375 gm in 50 ml IV X1 Ringers Lactated 1000 ml [Lactated Ringers] 1,000 ml Med 05/18/25 17:48 Discontinued IV 999 mls/hr Ringers Lactated 1000 ml [Lactated Ringers] 1,000 ml Med 05/18/25 17:48 Discontinued IV 999 mls/hr Sodium Chloride 0.9% 1000 ml [Ns] 1,000 ml Med 05/18/25 20:14 Discontinued IV 85 mls/hr Vancomycin/Ns 1 gm Ivpb 200 ml Med 05/18/25 19:37 Discontinued IV X1 levETIRAcetam INJ [Keppra Inj] Med 05/18/25 15:53 Discontinued 1,000 mg IVP X1 ONE Oxygen Delivery NOW RT 05/18/25 17:49 Completed Vital Signs Vital signs: Vital Signs Temperature 98.1 F 05/18/25 16:31 Respiratory Rate 16 05/18/25 16:31 Blood Pressure 131/76 H 05/18/25 16:31 Pulse Oximetry (%) 98 05/18/25 16:31 Oxygen Delivery Method Room Air 05/18/25 16:31 Discharge Plan Plan [facility] Disposition: [facility] Pt Being Transferred to: [place] Service Needed for Transfer: Opthalmology Prescriptions/Referrals Prescriptions/Med Rec: No Action amitriptyline 50 mg Tablet 50 mg PO HS Qty: 0 metformin 500 mg Tablet 1,000 mg PO QDAY Qty: 0 levetiracetam [Keppra] 500 MG tablet 750 mg PO QDAY Qty: 0 hydrocodone-acetaminophen 10-325 mg Tablet 1 tab PO Q6HR PRN (Reason: Pain (Scale Score 7-10)) Qty: 0 0RF losartan 100 mg Tablet 100 mg PO QDAY glipizide 5 mg Tablet 5 mg PO BID duloxetine 30 mg Capsule,Delayed Release(Dr/Ec) 30 mg PO HS tizanidine 4 mg Tablet 6 mg PO Q6HR PRN (Reason: Muscle Spasm) gabapentin 300 mg Capsule 300 mg PO TID aspirin 81 mg Tablet,Delayed Release (Dr/Ec) 81 mg PO QDAY Qty: 30 3RF clopidogrel 75 mg tablet 75 mg PO QDAY Qty: 30 1RF ferrous sulfate 325 mg (65 mg iron) tablet 325 mg PO Q OTHER DAY 30 Days Qty: 15 0RF Referrals: Kierra Alejandre FNP [Primary Care Provider] - In 1 week Problem List Clinical Impression: Orbital cellulitis Patient/Caregiver Discharge Instructions Print Language: German Stand Alone Forms: Radha Award Info., Patient Portal Info Letter MDM Clinical Information Provided by: patient and EMS Medical Records reviewed [facility] and EMS Meds/Rx considered, not ordered None Labs/Rad/Tests considered, not ordered None Chronic Illness/Social Conditions Explain: CVA, diabetes hypertension hyperlipidemia seizure disorder Labs Labs: interpreted by me Lab(s) Interpretation(s): CBC shows no leukocytosis and H&H of 9.7 and 30.6 respectively. When compared to old lab draws this is a stable anemia. Platelets are elevated at 668,000. ESR 29 Coags within acceptable limits CMP shows sodium 134 no other electrolyte imbalances no renal impairment T. bili at 2.3 AST 67 ALT 31 alk phos at 765. LDH at 1666 C-reactive protein at 12.1 BMP is negative Pro-Sherman is 0.51. Imaging Imaging interpretation: interpreted by me Medication Administration(s) Medication Administration History Discontinued Medications Lactated Ringer's (Lactated Ringers) 1,000 mls @ 999 mls/hr IV .Q1H1M ONE Stop: 05/18/25 18:48 Last Infusion: 05/18/25 20:27 Dose: Infused Documented By: Admin: 05/18/25 18:00 Dose: 999 mls/hr Documented By: Lactated Ringer's (Lactated Ringers) 1,000 mls @ 999 mls/hr IV .Q1H1M ONE Stop: 05/18/25 18:48 Last Infusion: 05/18/25 19:08 Dose: Infused Documented By: Admin: 05/18/25 18:07 Dose: 999 mls/hr Documented By: Piperacillin/Tazobactam/Dextrose (Zosyn) 3.375 gm in 50 mls @ 100 mls/hr IV X1 ONE; Protocol Stop: 05/18/25 18:18 Last Infusion: 05/18/25 19:24 Dose: Infused Documented By: Admin: 05/18/25 18:52 Dose: 100 mls/hr Documented By: MINO Vancomycin/Sodium Chloride (Vancomycin/Ns 1 Gm Ivpb) 200 mls @ 120 mls/hr IV X1 ONE Stop: 05/18/25 21:16 Last Infusion: 05/18/25 22:18 Dose: Infused Documented By: Admin: 05/18/25 20:37 Dose: 120 mls/hr Documented By: MINO Sodium Chloride (Ns) 1,000 mls @ 85 mls/hr IV .[id number] TOBY Stop: 06/17/25 20:13 Last Infusion: 05/19/25 03:58 Dose: 0 mls/hr Documented By: Admin: 05/18/25 20:40 Dose: 85 mls/hr Documented By: MINO Levetiracetam (Levetiracetam Inj 100 Mg/Ml Vial 5ml) 1,000 mg IVP X1 ONE Stop: 05/18/25 15:54 Last Admin: 05/18/25 16:45 Dose: 1,000 mg Documented By: MINO Morphine Sulfate (Morphine Sulf Inj 4 Mg/Ml Vial) 4 mg IVP X1 ONE Stop: 05/18/25 20:15 Last Admin: 05/18/25 20:35 Dose: 4 mg Documented By: MINO Morphine Sulfate (Morphine Sulf Inj 4 Mg/Ml Vial) 4 mg IVP X1 ONE Stop: 05/19/25 01:30 Last Admin: 05/19/25 02:26 Dose: 4 mg Documented By: ABDOULAYE Ondansetron HCl (Ondansetron Inj 2 Mg/Ml Inj 2 Ml) 4 mg IVP X1 ONE; Protocol Stop: 05/18/25 20:15 Last Admin: 05/18/25 20:35 Dose: 4 mg Documented By: MINO
[2025-05-18 16:03] VITALS: PULSE 94; RESP 18; O2SAT 98
[2025-05-18 16:08] VITALS: BMI 17.2
[2025-05-18 16:31] VITALS: BP 131/76; RESP 16; TEMP 36.7; O2SAT 98
[2025-05-18] MEDS: levETIRAcetam INJ 100 MG/ML VIAL 5ML 1000 MG IVP (16:45)
[2025-05-18 16:46] LABS: Lactate (Lactic Acid) 3.4 mMol/L (0.4-2.0)
[2025-05-18 16:49] LABS: Basophils # (Auto) 0.1 Thou/mm3 (0.0-0.2); Basophils % (Auto) 1 % (0-2.5); Eosinophils # (Auto) 0.0 Thou/mm3 (0.0-0.5); Eosinophils % (Auto) 0 % (0-10); Hematocrit 30.6 % (41.0-53.0); Hemoglobin 9.7 g/dL (13.5-16.0); Immature Granulocytes Auto 0.04 Thou/mm3 (0.00-0.00); Lymphocytes # (Auto) 0.8 Thou/mm3 (1.0-4.8); Lymphocytes % (Auto) 8 % (10-50); Mean Corpuscular HGB Conc 31.7 g/dl (31.0-37.0); Mean Corpuscular Hemoglobin 26.6 pg (25.0-35.0); Mean Corpuscular Volume 84 fL (80-100); Monocytes # (Auto) 0.6 Thou/mm3 (0.0-0.8); Monocytes % (Auto) 7 % (0-12); Neutrophils # (Auto) 7.7 Thou/mm3 (1.8-7.7); Neutrophils % (Auto) 83 % (37-80); Nucleated Red Blood Cell # 0.06 Thou/mm3 (0.00-0.00); Nucleated Red Blood Cell % 1 /100 WBC (0); Platelet Count 668 Thou/mm3 (140-440); RDW Standard Deviation 50.1 fL (35.1-43.9); Red Blood Count 3.65 Miln/mm3 (4.50-5.90); White Blood Count 9.2 Thou/mm3 (3.8-10.6)
[2025-05-18 17:08] LABS: INR 1.0 (0.9-1.3); Partial Thromboplastin Time 27.2 Seconds (22.0-36.0); Prothrombin Time 10.8 Seconds (9.0-12.2)
[2025-05-18 17:10] LABS: B-Type Natriuretic Peptide 74 pg/mL (0-100)
[2025-05-18 17:28] LABS: Alanine Aminotransferase 31 U/L (10-49); Albumin, Serum 2.9 gm/dL (3.4-4.8); Albumin/Globulin Ratio 1.5 (1.2-2.2); Alkaline Phosphatase 765 U/L (46-116); Anion Gap 9 (7-16); Aspartate Amino Transferase 67 U/L (0-34); BUN/Creatinine Ratio 19 Ratio (12-20); Bilirubin,Total 2.3 mg/dL (0.3-1.2); Blood Urea Nitrogen 17 mg/dL (9-23); C-Reactive Protein 12.1 mg/dL (0.0-0.9); Calcium 8.2 mg/dL (8.3-10.6); Calcium (Corrected) 9.1 mg/dL (8.5-10.1); Carbon Dioxide 26.6 mMol/L (20.0-31.0); Chloride 98 mMol/L (98-107); Creatinine (Component) 0.9 mg/dL (0.6-1.3); Estimated Creatinine Clearance 63.4 mL/min (>60); Globulin 1.9 gm/dL (2.3-3.5); Glucose 96 mg/dL (74-106); LDH (Lactate Dehydrogenase) 1660 U/L (120-246); Magnesium 1.4 mg/dL (1.6-2.6); Osmolality,Calculated 269 (275-295); Potassium 3.9 mMol/L (3.4-5.1); Procalcitonin 0.51 ng/ml (0.0-0.49); Sed Rate (ESR) 29 mm/hr (0-20); Sodium 134 mMol/L (136-145); Total Protein 4.8 gm/dL (5.7-8.2); eGFR > 60 See Note
--- NOTE | 2025-05-18 17:50 | XR_ITS ---
EXAMINATION: AP chest single view TECHNIQUE: AP portable semiupright chest single view Date and time: May 18, 2025, 1808 hours, comparison December 31, 2022 INDICATIONS: Sepsis alert today, shortness of breath chest pain FINDINGS: Interval pulmonary mass in the left midlung, 33 mm Interval diffuse bilateral pneumonia. Normal heart size Severe osteopenia IMPRESSION: Interval significant diffuse bilateral pneumonia 33 mm pulmonary mass left midlung, highest on the differential list lung carcinoma, recommend CT chest without contrast follow-up
[2025-05-18] MEDS: RINGERS LACTATED 1000 ML 1,000 ML 999 ML IV ×2 (18:00→18:07)
[2025-05-18 18:37] VITALS: PULSE 93; RESP 17; RESP 98
[2025-05-18 18:44] VITALS: BP 131/76; RESP 17; TEMP 36.7; O2SAT 99
[2025-05-18] MEDS: PIPER/TAZO 3.375 GM PREMIX 3.375 GM/50 ML BAG IV (18:52)
[2025-05-18 18:54] LABS: Lipase 17 U/L (12-53); Phosphorous 3.9 mg/dL (2.4-5.1); Troponin I < 0.020 ng/mL (0.0-0.045)
[2025-05-18 19:32] LABS: Bacteria,Urine Rare; Bilirubin,Urine 1+ (Negative); Blood,Urine Negative (Negative); Calcium Oxalate Crystals,Urine 1+; Clarity,Urine Clear (Clear/Hazy); Collection Type, Urine Clean Catch; Color,Urine Yellow (Lt Yel-Yel); Culture Indicated,Urine Not Indicated; Glucose, Urine Negative (Negative); Ketones,Urine Negative (Negative); Leukocyte Esterase,Urine Negative (Negative); Nitrite,Urine Negative (Negative); PH,Urine 6.0 (5.0-7.0); Protein,Urine 1+ (Neg - Trace); RBC,Urine 10 /hpf (0-3); Specific Gravity,Urine 1.026 (1.001-1.035); Squamous Epithelial Cell,Urine < 1 /hpf (0-5); Urobilinogen,Urine 6.0 mg/dL (0.0-1.0); WBC,Urine 1 /hpf (0-5)
[2025-05-18 19:36] LABS: Amphetamine/Methamp Scrn,U Negative (Negative); Barbiturate Screen,Urine Negative (Negative); Benzodiazepines Screen,Urine Negative (Negative); Benzoylecgonine Screen, Ur Negative (Negative); Fentanyl Screen,Urine Negative (Negative); Opiate Screen,Urine Positive (Negative); THC Screen,Urine Negative (Negative)
[2025-05-18 19:42] LABS: Reflex Lactate? Y
[2025-05-18 20:03] VITALS: BP 168/88; PULSE 88; RESP 18; TEMP 36.6; O2SAT 99
[2025-05-18 20:08] LABS: Lactic Acid, 3 HR 3.1 mMol/L (0.4-2.0)
[2025-05-18] MEDS: MORPHINE SULF INJ 4 MG/ML VIAL IVP (20:35)
[2025-05-18] MEDS: ONDANSETRON INJ 2 MG/ML INJ 2 ML 4 MG IVP (20:35)
[2025-05-18] MEDS: VANCOMYCIN/NS 1 GM IVPB 200 ML IV (20:37)
[2025-05-18] MEDS: SODIUM CHLORIDE 0.9% 1000 ML 1,000 ML 85 ML IV (20:40)
--- NOTE | 2025-05-18 20:43 | PC.NURSE ---
FAXED INFORMATION TO [facility], PUSHED IMAGE TOO,CALLED AND TALKED TO OTTO POTTER AT TRANSFER CENTER, SHE WILL CALL BACK.
--- NOTE | 2025-05-18 21:29 | PC.NURSE ---
Spoke with TARIQ Ryan from [facility] to update with patient status.
[2025-05-18 22:11] VITALS: BP 136/62; PULSE 87; RESP 16; TEMP 36.6; O2SAT 96
--- NOTE | 2025-05-18 22:20 | PC.NURSE ---
OTF WATKINS INFORMED ME THAT [facility] SAID THAT PT NEED TO [facility].
--- NOTE | 2025-05-18 22:50 | PC.NURSE ---
CALLED [facility] AND INFORMED THEM ABOUT PT NEED OF TRANSFER.
--- NOTE | 2025-05-18 23:09 | EDNOTE_ITS ---
Emergency Room Addendum <Melanie Julian - Last Filed: 05/18/25 23:09> Addendum Narrative: 2300: Care assumed from Levon Call NP. Past medical, surgical, social and family history reviewed. Vitals and home medications reviewed. Results and treatment plan discussed. I will assume the care of the patient at this time and will follow the patient. Please refer to the emergency department record for history and examination from initial visit. <Sherwin Young DO - Last Filed: 05/19/25 00:35> Addendum Narrative: 2300: Care assumed from Levon Call NP. Past medical, surgical, social and family history reviewed. Vitals and home medications reviewed. Results and treatment plan discussed. I will assume the care of the patient at this time and will follow the patient. Please refer to the emergency department record for history and examination from initial visit. At approximately 12:20 AM I spoke with the ophthalmology fellow, Dr. Kennedy, at [facility] accepts this patient as an ER to ER transfer. Patient will be transferred in stable condition and is agreeable to the transfer.
--- NOTE | 2025-05-19 00:20 | PC.NURSE ---
DR. STORY TALKED TO [facility], PT ACCEPTED BY DR. YU.
--- NOTE | 2025-05-19 00:51 | PC.NURSE ---
FAXED PT INFORMATION TO [facility] , NUMBER [phone].
[2025-05-19 01:21] VITALS: BP 153/72; PULSE 90; RESP 18; TEMP 36.7; O2SAT 96
[2025-05-19] MEDS: MORPHINE SULF INJ 4 MG/ML VIAL IVP (02:26)
[2025-05-19 03:16] VITALS: BP 132/65; PULSE 81; RESP 17; TEMP 36.9; O2SAT 98
--- NOTE | 2025-05-19 03:56 | PC.NURSE ---
Pt picked up by EMS [facility] transport. Pt AAOx3. GCS 15, moving all extremities at no pain at the moment of transport
== END 2025-05-19 04:01 | disposition short-term general hospital (02) ==
PROVIDERS: Registered Nurse General Practice; Emergency Provider Family Medicine; PCP Nurse Practitioner Family
DX: H05.012 Cellulitis of left orbit (principal); R06.02 Shortness of breath; R07.9 Chest pain, unspecified; R94.31 Abnormal electrocardiogram [ECG] [EKG]; I10 Essential (primary) hypertension; E78.00 Pure hypercholesterolemia, unspecified
CPT/HCPCS: 36415; 70487; 71045; 80053; 80307; 81001; 83605; 83615; 83690; 83735; 83880; 84100; 84145; 84484; 85025; 85610; 85652; 85730; 86140; 87040; 93005; 96361; 96365; 96366; 96375; 96376; 99285; A4649; J1953; J2270; J2405; J2543; J3373; J7030; J7120; Q9967